=== PATIENT | male | born 1940 | race Caucasian/White ===

== ENCOUNTER 2019-11-13 11:53 | Outpatient (REF) | payer OTHER, SELFPAY ==
[2019-11-13 14:28] LABS: Anion Gap 14 (12-20); Blood Urea Nitrogen 17 mg/dL (9-16); Calcium 9.5 mg/dL (8.4-10.2); Carbon Dioxide 26 mmol/L (22-29); Chloride 104 mmol/L (96-108); Estimated Glomerular Filt Rate > 60; Glucose Random 89 mg/dL (60-115); Potassium 3.9 mmol/l (3.3-5.1); Sodium 140 mmol/L (135-145)
[2019-11-14 18:31] LABS: Calcium (PTHI) 9.7 mg/dL (8.6-10.3); PTHI 79 pg/mL (14-64)
== END 2019-11-13 11:54 | disposition home or self-care (01) ==
LOC: HO.10HDL 11:53
PROVIDERS: Visit Provider Internal Medicine
DX: E83.52 Hypercalcemia (principal)
CPT/HCPCS: 36415; 80048; 83970

== ENCOUNTER → 2019-11-22 09:07 | Outpatient (BNVA) | payer OTHER, SELFPAY | PROVIDERS: Visit Provider Internal Medicine | DX: I48.20 Chronic atrial fibrillation, unspecified (principal); Z51.81 Encounter for therapeutic drug level monitoring; Z79.01 Long term (current) use of anticoagulants | CPT/HCPCS: 85610 ==

== ENCOUNTER → 2019-12-27 08:52 | Outpatient (BNVA) | payer OTHER, SELFPAY | PROVIDERS: PCP Internal Medicine; Visit Provider Internal Medicine | DX: I48.20 Chronic atrial fibrillation, unspecified (principal); Z51.81 Encounter for therapeutic drug level monitoring; Z79.01 Long term (current) use of anticoagulants | CPT/HCPCS: 85610; 99211 ==

== ENCOUNTER → 2020-01-16 10:22 | Outpatient (BNVA) | payer OTHER, SELFPAY | PROVIDERS: PCP Internal Medicine; Referring Provider Internal Medicine; Visit Provider Internal Medicine Cardiovascular Disease | DX: I48.20 Chronic atrial fibrillation, unspecified (principal); I10 Essential (primary) hypertension; Z95.0 Presence of cardiac pacemaker | CPT/HCPCS: 93005 ==

== ENCOUNTER → 2020-01-19 10:04 | Outpatient (REF) | payer OTHER, SELFPAY ==
--- NOTE | 2020-01-19 10:08 | CA_ITS ---
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 The visually estimated ejection fraction is between 55-60%. - The left atrium is severely dilated. - No obvious valvular pathology seen on this study. Findings Left Ventricle Normal left ventricular cavity size. There is severely increased left ventricular wall thickness. The left ventricular systolic function is normal. The visually estimated ejection fraction is between 55-60%. There is no evidence of regional wall motion abnormalities. Diastolic function is indeterminate on the basis of available data. Right Ventricle Normal right ventricular cavity size and systolic function. There is a pacemaker wire seen in the right ventricle. Atria The left atrium is severely dilated. The right atrium is normal in size. Aortic Valve There is a normal trileaflet aortic valve. There is no aortic valve stenosis. There is no aortic valve regurgitation. Mitral Valve The mitral valve appears normal. There is mild mitral valve regurgitation. There is no mitral valve stenosis. Pulmonic Valve The pulmonic valve was not well visualized. Tricuspid Valve Normal tricuspid valve structure. There is trace tricuspid valve regurgitation. The pulmonary artery systolic pressure is normal. Great Vessels The aortic annulus, sinuses of valsalva, and asc aorta are normal in size. Venous The inferior vena cava is normal in size and collapses greater than 50% with inspiration. Pericardium/Pleural There is no evidence of pericardial effusion. Prior Study Comparison No significant change compared to prior study dated: 09/23/2017. Recommendations, Care & Conclusions No obvious valvular pathology seen on this study. Measurements 2D Linear Measurements IVSd: 1.56 0.6-0.9/0.6-1.0 cm LVIDd: 5.33 3.9-5.3/4.2-5.9 cm LVIDd Index: 2.43 2.4-3.2/2.2-3.1 cm/m2 LVIDs: 4.49 2.0-3.6 cm LVPWd: 1.50 0.7-1.1 cm Ao Root: 3.70 2.1-3.5 cm LA Diam: 4.90 2.7-3.8/3.0-4.0 cm LAIDs Index: 2.24 1.5-2.3 cm/m2 LV Mass: 456.74 67-162/88-224 g LV Mass Index: 208.56 43-95/49-115 g/m2 LVOT Diam: 2.20 3.0+(-)1.3 cm 2D Systolic Function EF 4C: 43.80 >55% EF 2C: 38.90 >55% Mitral Valve MV Pk E: 1.04 MV PK A: 0.00 MV Decel Time: 151.00 E/A: 214.40 E'Lateral: 15.90 E'Medial: 3.96 E/E' Med: 26.30 E/E' Lat: 6.50 PHT: 44.00 MVA PHT: 5.00 Decel Cooper: 6.89 Aortic Valve AoV Pk Ruben: 1.23 AoV Mn Ruben: 0.96 AoV VTI: 0.29 AoV Pk Grad: 6.00 Aov Mn Grad: 4.00 ALEYDA Cont.VTI: 2.59 LVOT LVOT Pk Ruben: 0.96 LVOT Mn Ruben: 0.63 LVOT VTI: 0.20 LVOT Pk Grad: 4.00 LVOT Mn Grad: 2.00 LVOT Diam: 2.20 LVOT Area: 3.80 Diastolic Function MV Pk E: 1.04 MV Pk A: 0.00 E/A: 214.40 E'Medial: 3.96 E/E' Med: 26.30 E' Laterial: 15.90 E/E' Lat: 6.50 Tricuspid Valve TR Pk Ruben: 2.49 TR Pk Grad: 25.00 RA Press: 3.00 RVSP: 28.00 Great Vessels Aorta Ao Root-2D: 3.70 2.0-3.7 cm Ao Asc: 3.60 2.1-3.4 cm Pulmonary Valve PV Pk Ruben: 0.69 Peak PV Grad: 2.00 Updated in Other Vendor System with Status of Final Tr Lindquist MD electronically signed on 01/21/2020 9:47:39 AM with status of Final
== END ==
LOC: HO.CARD 10:04
PROVIDERS: Visit Provider Internal Medicine Cardiovascular Disease
DX: I11.0 Hypertensive heart disease with heart failure (principal); I48.20 Chronic atrial fibrillation, unspecified
CPT/HCPCS: 93306

== ENCOUNTER 2020-01-22 11:08 | Outpatient (REF) | payer OTHER, SELFPAY ==
[2020-01-22 14:05] LABS: Alanine Aminotransferase 22 U/L (0-40); Albumin Level 4.4 g/dL (3.5-5.0); Alkaline Phosphatase 67 U/L (39-117); Anion Gap 16 (12-20); Aspartate Amino Transferase 22 U/L (5-37); Bilirubin Total 1.2 mg/dL (0.0-1.0); Blood Urea Nitrogen 20 mg/dL (9-16); Calcium 9.5 mg/dL (8.4-10.2); Carbon Dioxide 28 mmol/L (22-29); Chloride 103 mmol/L (96-108); Estimated Glomerular Filt Rate > 60; Glucose Random 140 mg/dL (60-115); Potassium 3.8 mmol/l (3.3-5.1); Sodium 143 mmol/L (135-145); Total Protein 7.4 g/dL (6.5-8.0)
[2020-01-22 14:16] LABS: Prostate Specific Antigen 0.91 ng/mL (<0.05-4.0)
== END 2020-01-22 11:09 | disposition home or self-care (01) ==
LOC: HO.10HDL 11:08
PROVIDERS: Absent Provider Urology; PCP Internal Medicine; Visit Provider Internal Medicine
DX: I48.0 Paroxysmal atrial fibrillation (principal); I10 Essential (primary) hypertension; G47.33 Obstructive sleep apnea (adult) (pediatric); C61 Malignant neoplasm of prostate; R73.03 Prediabetes
CPT/HCPCS: 80053; 84153

== ENCOUNTER → 2020-01-31 09:05 | Outpatient (BNVA) | payer OTHER, SELFPAY | PROVIDERS: PCP Internal Medicine; Visit Provider Internal Medicine | DX: I48.20 Chronic atrial fibrillation, unspecified (principal); Z79.01 Long term (current) use of anticoagulants; Z51.81 Encounter for therapeutic drug level monitoring | CPT/HCPCS: 85610; 99211 ==

== ENCOUNTER 2020-02-13 14:35 | Outpatient (REF) | payer OTHER, SELFPAY ==
--- NOTE | 2020-02-13 14:45 | XR_ITS ---
EXAMINATION: XR HIP, LEFT CLINICAL INFORMATION: Left hip pain. COMPARISON: CT pelvis from 03/08/2015. TECHNIQUE: Two views of the left hip. FINDINGS: Alignment is normal at the left hip. Left hip joint space is maintained. No fracture or subluxation. No erosion or periostitis. There are areas of sclerosis projecting over the left femoral head that appear to be within the femoral head and not within the overlying acetabulum. This raises suspicion for possible osteonecrosis of the femoral head. Query whether the patient has any risk factors for osteonecrosis. There was no femoral head osteonecrosis on the CT exam of 03/08/2015. If the patient has unexplained pain at the left hip, MR imaging could be performed. XR/XR hip LT min 2V IMPRESSION: * No acute findings. * No evidence of a significant degenerative or inflammatory arthropathy at the left hip. * There appears to be an area of sclerosis within the femoral head. Question presence of osteonecrosis within the left femoral head. If there is a need for a more definitive assessment, MR imaging of the hip could be performed.
== END 2020-02-13 14:36 | disposition home or self-care (01) ==
LOC: HO.XRAY 14:35
PROVIDERS: PCP Internal Medicine; Visit Provider Internal Medicine
DX: M25.552 Pain in left hip (principal); I48.20 Chronic atrial fibrillation, unspecified; Z51.81 Encounter for therapeutic drug level monitoring; Z79.01 Long term (current) use of anticoagulants
CPT/HCPCS: 73502; 85610; 99211

== ENCOUNTER → 2020-02-26 11:58 | Outpatient (BNVA) | payer OTHER, SELFPAY | PROVIDERS: PCP Internal Medicine; Visit Provider Orthopaedic Surgery ==

== ENCOUNTER → 2020-02-28 14:09 | Outpatient (BNVA) | payer OTHER, SELFPAY | PROVIDERS: PCP Internal Medicine; Visit Provider Anesthesiology ==

== ENCOUNTER → 2020-03-28 09:43 | Outpatient (BNVA) | payer OTHER, SELFPAY | PROVIDERS: PCP Internal Medicine; Visit Provider Internal Medicine | DX: I48.20 Chronic atrial fibrillation, unspecified (principal); Z51.81 Encounter for therapeutic drug level monitoring; Z79.01 Long term (current) use of anticoagulants | CPT/HCPCS: 85610; 99211 ==

== ENCOUNTER 2020-04-15 09:16 | Outpatient (REF) | payer OTHER, SELFPAY ==
[2020-04-15 11:12] LABS: Alanine Aminotransferase 26 U/L (0-40); Albumin Level 4.7 g/dL (3.5-5.0); Alkaline Phosphatase 69 U/L (39-117); Anion Gap 17 (12-20); Aspartate Amino Transferase 27 U/L (5-37); Bilirubin Total 1.5 mg/dL (0.0-1.0); Blood Urea Nitrogen 16 mg/dL (9-16); Calcium 9.6 mg/dL (8.4-10.2); Carbon Dioxide 27 mmol/L (22-29); Chloride 103 mmol/L (96-108); Estimated Glomerular Filt Rate > 60; Glucose Fasting 122 mg/dL (60-99); Potassium 3.7 mmol/L (3.3-5.1); Sodium 143 mmol/L (135-145); Total Protein 7.7 g/dL (6.5-8.0)
== END 2020-04-15 09:17 | disposition home or self-care (01) ==
LOC: HO.10HDL 09:16
PROVIDERS: Visit Provider Internal Medicine
DX: I50.9 Heart failure, unspecified (principal); I48.0 Paroxysmal atrial fibrillation
CPT/HCPCS: 36415; 80053

== ENCOUNTER 2020-04-15 14:00 | Outpatient (RCR) | payer OTHER, SELFPAY ==
--- NOTE | 2020-03-19 14:26 | MHC.PT.OD ---
[facility] [place] Office [place] Office [place] Office [address] Britni Acevedo [address] [phone] F: [phone] F: [phone] F: [phone] F: [phone] Physical Therapy Daily Note Diagnosis: Iliotibial band syndrome, unspecified leg M76.30 PT eval and treat referred to PT from Jonatan Raman date of referral 03/13/20 FINDINGS: Alignment is normal at the left hip. Left hip joint space is maintained. No fracture or subluxation. No erosion or periostitis. There are areas of sclerosis projecting over the left femoral head that appear to be within the femoral head and not within the overlying acetabulum. This raises suspicion for possible osteonecrosis of the femoral head. Query whether the patient has any risk factors for osteonecrosis. There was no femoral head osteonecrosis on the CT exam of 03/08/2015. If the patient has unexplained pain at the left hip, MR imaging could be performed. XR/XR hip LT min 2V IMPRESSION: * No acute findings. * No evidence of a significant degenerative or inflammatory arthropathy at the left hip. * There appears to be an area of sclerosis within the femoral head. Question presence of osteonecrosis within the left femoral head. If there is a need for a more definitive assessment, MR imaging of the hip could be performed. XR/XR hip LT min 2V IMPRESSION: * No acute findings. * No evidence of a significant degenerative or inflammatory arthropathy at the left hip. * There appears to be an area of sclerosis within the femoral head. Question presence of osteonecrosis within the left femoral head. If there is a need for a more definitive assessment, MR imaging of the hip could be performed.* Date of Surgery: Date of Evaluation: 03/18/20 Date of Treatment: 03/18/20 Treatments to Date: 1 Cancellations to Date: 0 No Shows to Date: Authorized Visits: 1 Insurance End Date: Precautions/ Contraindications:on coumadin, pacemaker, cardiac, HTN, Subjective: Your the fifth person Eleanor seen for this, I hope you can help me. Pain Score and Location: 5 Proximal hip Objective Flowsheet: Tests & Measures Exercises Gait training trialed with std cane in R UE; initiated step to pattern sequencing in effort to reduce pressure/pain in L LE. Pt verbalized does not currently have a std cane, educated/encouraged to purchase one and bring to next session to have properly adjusted to him. With use of std cane, pt demonstrated improved gait efficiency and reduction in gait deviations. To review stair sequencing/education next session. Educated re: findings of evaluation, indications for treatment, goals of therapy Educated re: benefit in using std cane to improve gait sequencing/reduce gait deviations/stress on other areas of his body Encouraged participation in therapy Modalities Assessment: Pt is a R hand dominant, 79 y/o pleasant retired gentleman, referred to PT from pain management ( 03/13/20) following initial consult after seeing pain management. Prior to referral here, pt was seen by orthopedics and underwent xray imaging of his L hip. FINDINGS: Alignment is normal at the left hip. Left hip joint space is maintained. No fracture or subluxation. No erosion or periostitis. There are areas of sclerosis projecting over the left femoral head that appear to be within the femoral head and not within the overlying acetabulum. This raises suspicion for possible osteonecrosis of the femoral head. Query whether the patient has any risk factors for osteonecrosis. There was no femoral head osteonecrosis on the CT exam of 03/08/2015. If the patient has unexplained pain at the left hip, MR imaging could be performed. XR/XR hip LT min 2V IMPRESSION: * No acute findings. * No evidence of a significant degenerative or inflammatory arthropathy at the left hip. * There appears to be an area of sclerosis within the femoral head. Question presence of osteonecrosis within the left femoral head. If there is a need for a more definitive assessment, MR imaging of the hip could be performed. XR/XR hip LT min 2V Pt presents with significant gait deformity, impaired weight-bearing, and visible weakness of his left hip. Pt would likely benefit from education with aide in using an assistive device (trial of std cane first) to improve weight-bearing ability however given xray findings it appears that patient would benefit from MRI of L hip to rule out presence of osteonecrosis. His pain location, impaired weightbearing tolerance, and appearance of symptoms are consistent with such a pathology. Pt stated hip xray was fine ; was referred to pain management by orthopedic MD prior to referral to outpatient PT. Pt was educated re: goals of therapy, findings of evaluation, and indications for treatment at this time. Pt verbalized significant frustration for ongoing symptoms with unknown cause. His PMH is significant for cardiac precautions with pacemaker placement, on coumadin, HTN, obesity, and sleep apnea. He verbalizes intolerance for ambulating short distances in his home Im hobbling around and he is having difficulty ascending/descending stairs with increased reliance on UE support. Pt would benefit from attending therapy 2x/week x 4 weeks to address gait deviations, implement use of AD, strengthen core/proximal hip, and improve safety to maximize function/reduce risk of falls. PT Plan: 2x/week x 4 weeks Short Term Goals: 1. Initiate use of AD to ease pain and improve weight-bearing on the L LE. 2. Educate pt re: goals of therapy, initiate HEP. 3. Strengthen L hip ext to complete symmetrical bridge in hooklying. 4. Strengthen L hip abd to 3/5 without compensation of L hip flexors. 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 Reduce pain in L proximal hip by 25%. 2. Complete SLR with no report of pain in L proximal hip. 3. Ascend/decend 8 inch step correctly and safely with use of sd cane and unilateral rail. 4. I HEP. Electronically signed by: Flavia Dewitt, PT, DPT
--- NOTE | 2020-04-15 14:49 | MHC.PT.OD ---
[facility] [place] Office [place] Office [place] Office [address] Britni Acevedo [address] [phone] F: [phone] F: [phone] F: [phone] F: [phone] Physical Therapy Daily Note Diagnosis: Iliotibial band syndrome, unspecified leg M76.30 PT eval and treat referred to PT from Jonatan Raman date of referral 03/13/20 FINDINGS: Alignment is normal at the left hip. Left hip joint space is maintained. No fracture or subluxation. No erosion or periostitis. There are areas of sclerosis projecting over the left femoral head that appear to be within the femoral head and not within the overlying acetabulum. This raises suspicion for possible osteonecrosis of the femoral head. Query whether the patient has any risk factors for osteonecrosis. There was no femoral head osteonecrosis on the CT exam of 03/08/2015. If the patient has unexplained pain at the left hip, MR imaging could be performed. XR/XR hip LT min 2V IMPRESSION: * No acute findings. * No evidence of a significant degenerative or inflammatory arthropathy at the left hip. * There appears to be an area of sclerosis within the femoral head. Question presence of osteonecrosis within the left femoral head. If there is a need for a more definitive assessment, MR imaging of the hip could be performed. XR/XR hip LT min 2V IMPRESSION: * No acute findings. * No evidence of a significant degenerative or inflammatory arthropathy at the left hip. * There appears to be an area of sclerosis within the femoral head. Question presence of osteonecrosis within the left femoral head. If there is a need for a more definitive assessment, MR imaging of the hip could be performed.* Date of Surgery: Date of Evaluation: 03/18/20 Date of Treatment: 04/02/20 Treatments to Date: 6 Cancellations to Date: 0 No Shows to Date: Authorized Visits: 1 Insurance End Date: Precautions/ Contraindications:On coumadin, pacemaker, cardiac, HTN, Fall risk Sleep apnea Subjective: I dont think the therapy is helping. Im taking 6- 500mg tylenol 3x/daily and that medication that he gave me doesn't do anything. Pain Score and Location: 4 with meds, 2 no meds L proximal hip Objective Flowsheet: Tests & Measures AROM Measurement 04/02/20: R IR 28 degrees R ER 13 degrees L hip IR 15 degrees L hip ER 23 degrees L hip flexion 3-/5 pain proximal L hip L knee ext 3-/5 pain proximal L hip R hip flexion 5/5 no pain R knee ext 5/5 no pain Exercises Seated sit<>stand and stand<>sit with GTB around thigh x 2 sets 10R with HEP education for home to improve mobility. SLR into flexion x 2 sets 10R SL hip abduction with straight leg with pillow between the knees x 2 sets 10R Seated HS curls with GTB x 2 set 10R bilaterally. Hooklying posterior pelvic tilt x 2 sets 10R with HS curl isolation. HS bridge in hooklying x 2 set 10R. Standing hip abduction with GTB with UE support and close S of therapist for safety x 10R each. SAQ seated x 2 sets 10R. Using green flexbar roller, STM to proximal left thigh/hip region while in R SL position. Adjusted height of standard cane for patient. Completed gait training on flat surface with use of std cane in R UE, step to>step through gait with good understanding and carryover demonstrated. Pt educated re: ascending/descending stairs with use of cane and unilateral rail. Completed education using 8 inch step and use of L UE rail (as this is what patient has at home for program). Ascending with R LE first, descending with L LE first with proper sequencing. Educated re: findings of evaluation, indications for treatment, goals of therapy Educated re: benefit in using std cane to improve gait sequencing/reduce gait deviations/stress on other areas of his body Encouraged participation in therapy Modalities Assessment: EXAMINATION: XR HIP, LEFT CLINICAL INFORMATION: Left hip pain. COMPARISON: CT pelvis from 03/08/2015. TECHNIQUE: Two views of the left hip. FINDINGS: Alignment is normal at the left hip. Left hip joint space is maintained. No fracture or subluxation. No erosion or periostitis. There are areas of sclerosis projecting over the left femoral head that appear to be within the femoral head and not within the overlying acetabulum. This raises suspicion for possible osteonecrosis of the femoral head. Query whether the patient has any risk factors for osteonecrosis. There was no femoral head osteonecrosis on the CT exam of 03/08/2015. If the patient has unexplained pain at the left hip, MR imaging could be performed. XR/XR hip LT min 2V IMPRESSION: * No acute findings. * No evidence of a significant degenerative or inflammatory arthropathy at the left hip. * There appears to be an area of sclerosis within the femoral head. Question presence of osteonecrosis within the left femoral head. If there is a need for a more definitive assessment, MR imaging of the hip could be performed. Dictated By:WILDA MCNALLY MD Signed By:<Electronically signed by WILDA MCNALLY MD in OV>02/15/20 0836 Pt has attended 6 sessions of PT to date, demonstrating limited improvement, plateaued progress in regards to reducing L proximal hip pain. Pt has beeen issued a written hip stablization program with (+) compliance. Pt may benefit from further imaging pain due to insidious onset of pain in hip, limited weight-bearing tolerance, and questionable findings on xray. PT Plan: Follow up with PCP Dr. Reddy, michelle appt with pain management is scheduled at this time. Pt has attended six sessions of PT to date, demonstrating little change in L proximal hip symptoms with report of insidious onset of pain. Pt has reported taking baclofen 10mg 3x daily in conjunction with 2-500mg tablets of Tylenol 3x daily. Pt has been educated re: previously issued stabilization activities with (+) carryover completed. He has not been using std cane but has been shown how to use and did obtain for home. His gait is antalgic with increased hip ER, decreased hip flexion and impaired stance tolerance. Please advise. Therapist is not recommending further therapy at this time secondary to plateaued status. Short Term Goals: 1. Initiate use of AD to ease pain and improve weight-bearing on the L LE. 2. Educate pt re: goals of therapy, initiate HEP. 3. Strengthen L hip ext to complete symmetrical bridge in hooklying. 4. Strengthen L hip abd to 3/5 without compensation of L hip flexors. Quality Assurance Specialist Goals: 1. Reduce pain in L proximal hip by 25%. 2. Complete SLR with no report of pain in L proximal hip. 3. Ascend/decend 8 inch step correctly and safely with use of sd cane and unilateral rail. 4. I HEP. Electronically signed by: Flavia Dewitt, PT, DPT
== END 2020-05-20 08:20 | disposition other institution (70) ==
LOC: HO.PTWFD 14:00
PROVIDERS: PCP Internal Medicine; Visit Provider Anesthesiology
DX: M54.16 Radiculopathy, lumbar region (principal)
CPT/HCPCS: 97110; 97116; 97140; 97162; 97535

== ENCOUNTER → 2020-04-24 09:55 | Outpatient (BNVA) | payer OTHER, SELFPAY | PROVIDERS: PCP Internal Medicine; Visit Provider Internal Medicine | DX: I48.20 Chronic atrial fibrillation, unspecified (principal); Z51.81 Encounter for therapeutic drug level monitoring; Z79.01 Long term (current) use of anticoagulants | CPT/HCPCS: 85610; 99211 ==

== ENCOUNTER → 2020-05-29 10:03 | Outpatient (BNVA) | payer OTHER, SELFPAY | PROVIDERS: PCP Internal Medicine; Visit Provider Internal Medicine | DX: I48.20 Chronic atrial fibrillation, unspecified (principal); Z79.01 Long term (current) use of anticoagulants; Z51.81 Encounter for therapeutic drug level monitoring | CPT/HCPCS: 85610; 99211 ==

== ENCOUNTER → 2020-06-26 10:06 | Outpatient (BNVA) | payer OTHER, SELFPAY | PROVIDERS: PCP Internal Medicine; Visit Provider Internal Medicine | DX: I48.20 Chronic atrial fibrillation, unspecified (principal); Z51.81 Encounter for therapeutic drug level monitoring; Z79.01 Long term (current) use of anticoagulants | CPT/HCPCS: 85610; 99211 ==

== ENCOUNTER 2020-07-15 09:52 | Outpatient (REF) | payer OTHER, SELFPAY ==
[2020-07-15 10:27] LABS: MANUAL DIFF FLAG NO
[2020-07-15 10:37] LABS: Basophils Percent Auto 0.6 % (0-2); Eosinophils Absolute Auto 0.2 X10*3/uL (0.0-0.4); Eosinophils Percent Auto 3.1 % (0-4); Hematocrit 48.7 % (42-52); Imm Gran Abs Auto 0.02 X10*3/uL (0.00-0.03); Imm Gran Pct Auto 0.3 % (0.0-0.4); Lymphocytes Absolute Auto 1.2 X10*3/uL (1.2-4.9); Mean Corpuscular HGB Conc 34.9 g/dl (31.0-36.0); Mean Corpuscular Hemoglobin 33.6 pg (27.0-33.0); Mean Corpuscular Volume 96.2 fL (80-98); Mean Platelet Volume 10.5 fL (9.4-12.4); Monocytes Absolute Auto 0.6 X10*3/uL (0.1-1.2); Neutrophils Absolute Auto 4.4 X10*3/uL (2.0-8.3); Platelet Count 160 X10*3/uL (160-400); Red Blood Count 5.06 X10*6/uL (4.60-5.80); Red Cell Distribution Width 13.7 % (11.0-16.0); White Blood Count 6.5 X10*3/uL (4.8-10.8)
[2020-07-15 10:48] LABS: Estimated Average Glucose 128 mg/dL; Hemoglobin A1c % 6.1 %
[2020-07-15 11:07] LABS: Alanine Aminotransferase 25 U/L (0-40); Albumin Level 4.4 g/dL (3.5-5.0); Alkaline Phosphatase 76 U/L (39-117); Anion Gap 13 (12-20); Aspartate Amino Transferase 22 U/L (5-37); Bilirubin Total 1.4 mg/dL (0.0-1.0); Blood Urea Nitrogen 18 mg/dL (9-16); Calcium 9.7 mg/dL (8.4-10.2); Carbon Dioxide 25 mmol/L (22-29); Chloride 106 mmol/L (96-108); Estimated Glomerular Filt Rate > 60; Glucose Random 141 mg/dL (60-115); Phosphorus 2.7 mg/dL (2.7-4.5); Potassium 3.7 mmol/L (3.3-5.1); Sodium 140 mmol/L (135-145)
[2020-07-17 10:26] LABS: Calcium (PTHI) 9.8 mg/dL (8.6-10.3); PTHI 97 pg/mL (14-64)
== END 2020-07-15 09:53 | disposition home or self-care (01) ==
LOC: HO.10HDL 09:52
PROVIDERS: Visit Provider Internal Medicine
DX: I12.9 Hypertensive chronic kidney disease with stage 1 through stage 4 chronic kidney disease, or unspecified chronic kidney disease (principal); N18.9 Chronic kidney disease, unspecified; I48.91 Unspecified atrial fibrillation; R73.03 Prediabetes
CPT/HCPCS: 36415; 80053; 83036; 83970; 84100; 85025

== ENCOUNTER → 2020-07-22 10:31 | Outpatient (BNVA) | payer OTHER, SELFPAY | PROVIDERS: PCP Internal Medicine; Referring Provider Internal Medicine; Visit Provider Internal Medicine Cardiovascular Disease ==

== ENCOUNTER 2020-07-23 10:37 | Outpatient (REF) | payer OTHER, SELFPAY ==
[2020-07-23 14:41] LABS: Prostate Specific Antigen 1.07 ng/mL (<0.05-4.0)
== END 2020-07-23 10:38 | disposition home or self-care (01) ==
LOC: HO.10HDL 10:37
PROVIDERS: Visit Provider Urology
DX: Z12.5 Encounter for screening for malignant neoplasm of prostate (principal); C61 Malignant neoplasm of prostate
CPT/HCPCS: 36415; 84153

== ENCOUNTER → 2020-07-31 09:51 | Outpatient (BNVA) | payer OTHER, SELFPAY | PROVIDERS: PCP Internal Medicine; Visit Provider Internal Medicine | DX: I48.20 Chronic atrial fibrillation, unspecified (principal); Z51.81 Encounter for therapeutic drug level monitoring; Z79.01 Long term (current) use of anticoagulants | CPT/HCPCS: 85610; 99211 ==

== ENCOUNTER → 2020-09-04 09:40 | Outpatient (BNVA) | payer OTHER, SELFPAY | PROVIDERS: PCP Internal Medicine; Visit Provider Internal Medicine | DX: I48.20 Chronic atrial fibrillation, unspecified (principal); Z51.81 Encounter for therapeutic drug level monitoring; Z79.01 Long term (current) use of anticoagulants | CPT/HCPCS: 85610; 99211 ==

== ENCOUNTER → 2020-10-16 09:58 | Outpatient (BNVA) | payer OTHER, SELFPAY | PROVIDERS: PCP Internal Medicine; Visit Provider Internal Medicine | DX: I48.20 Chronic atrial fibrillation, unspecified (principal); Z51.81 Encounter for therapeutic drug level monitoring; Z79.01 Long term (current) use of anticoagulants | CPT/HCPCS: 85610; 99211 ==

== ENCOUNTER 2020-10-22 09:26 | Outpatient (REF) | payer OTHER, SELFPAY ==
[2020-10-22 10:35] LABS: MANUAL DIFF FLAG NO
[2020-10-22 10:40] LABS: Basophils Percent Auto 0.7 % (0-2); Eosinophils Absolute Auto 0.2 X10*3/uL (0.0-0.4); Eosinophils Percent Auto 3.6 % (0-4); Hematocrit 48.4 % (42-52); Hemoglobin 16.9 g/dl (14.0-18.0); Imm Gran Abs Auto 0.02 X10*3/uL (0.00-0.03); Imm Gran Pct Auto 0.3 % (0.0-0.4); Lymphocytes Absolute Auto 1.3 X10*3/uL (1.2-4.9); Lymphocytes Percent Auto 22.4 % (20-40); Mean Corpuscular HGB Conc 34.9 g/dl (31.0-36.0); Mean Corpuscular Hemoglobin 33.4 pg (27.0-33.0); Mean Corpuscular Volume 95.7 fL (80-98); Mean Platelet Volume 10.4 fL (9.4-12.4); Monocytes Absolute Auto 0.6 X10*3/uL (0.1-1.2); Monocytes Percent Auto 10.2 % (2-11); Neutrophils Absolute Auto 3.7 X10*3/uL (2.0-8.3); Neutrophils Percent Auto 62.8 % (45-73); Platelet Count 156 X10*3/uL (160-400); Red Blood Count 5.06 X10*6/uL (4.60-5.80); Red Cell Distribution Width 14.1 % (11.0-16.0); White Blood Count 5.8 X10*3/uL (4.8-10.8)
[2020-10-22 10:48] LABS: Estimated Average Glucose 128 mg/dL; Hemoglobin A1c % 6.1 %
[2020-10-22 11:12] LABS: Alanine Aminotransferase 25 U/L (0-40); Albumin Level 4.5 g/dL (3.5-5.0); Alkaline Phosphatase 79 U/L (39-117); Anion Gap 14 (12-20); Aspartate Amino Transferase 25 U/L (5-37); Bilirubin Total 1.7 mg/dL (0.0-1.0); Blood Urea Nitrogen 15 mg/dL (9-16); Calcium 9.7 mg/dL (8.4-10.2); Carbon Dioxide 26 mmol/L (22-29); Chloride 105 mmol/L (96-108); Estimated Glomerular Filt Rate > 60; Glucose Random 140 mg/dL (60-115); Potassium 4.1 mmol/L (3.3-5.1); Sodium 141 mmol/L (135-145); Total Protein 7.4 g/dL (6.5-8.0)
== END 2020-10-22 09:27 | disposition home or self-care (01) ==
LOC: HO.10HDL 09:26
PROVIDERS: Visit Provider Internal Medicine
DX: Z13.89 Encounter for screening for other disorder (principal)
CPT/HCPCS: 36415; 80053; 83036; 83735; 85025

== ENCOUNTER → 2020-11-20 09:47 | Outpatient (BNVA) | payer OTHER, SELFPAY | PROVIDERS: PCP Internal Medicine; Visit Provider Internal Medicine | DX: I48.20 Chronic atrial fibrillation, unspecified (principal); Z51.81 Encounter for therapeutic drug level monitoring; Z79.01 Long term (current) use of anticoagulants | CPT/HCPCS: 85610; 99211 ==

== ENCOUNTER → 2020-12-25 10:00 | Outpatient (BNVA) | payer OTHER, SELFPAY | PROVIDERS: PCP Internal Medicine; Visit Provider Internal Medicine | DX: I48.20 Chronic atrial fibrillation, unspecified (principal); Z51.81 Encounter for therapeutic drug level monitoring; Z79.01 Long term (current) use of anticoagulants | CPT/HCPCS: 85610; 99211 ==

== ENCOUNTER → 2021-01-13 09:04 | Outpatient (BNVA) | payer OTHER, SELFPAY | PROVIDERS: PCP Internal Medicine; Referring Provider Internal Medicine; Visit Provider Internal Medicine Cardiovascular Disease | DX: Z45.018 Encounter for adjustment and management of other part of cardiac pacemaker (principal); I48.20 Chronic atrial fibrillation, unspecified; I11.0 Hypertensive heart disease with heart failure; I50.9 Heart failure, unspecified | CPT/HCPCS: 93005 ==

== ENCOUNTER 2021-01-16 09:50 | Outpatient (REF) | payer OTHER, SELFPAY ==
[2021-01-16 13:47] LABS: MANUAL DIFF FLAG NO
[2021-01-16 13:51] LABS: Basophils Absolute Auto 0.1 X10*3/uL (0.0-0.2); Basophils Percent Auto 0.9 % (0-2); Eosinophils Absolute Auto 0.1 X10*3/uL (0.0-0.4); Eosinophils Percent Auto 2.5 % (0-4); Hematocrit 51.1 % (42.0-52.0); Hemoglobin 17.7 g/dl (14.0-18.0); Imm Gran Abs Auto 0.02 X10*3/uL (0.00-0.03); Imm Gran Pct Auto 0.4 % (0.0-0.4); Lymphocytes Absolute Auto 1.3 X10*3/uL (1.2-4.9); Lymphocytes Percent Auto 22.1 % (20-40); Mean Corpuscular HGB Conc 34.6 g/dl (31.0-36.0); Mean Corpuscular Volume 95.3 fL (80.0-98.0); Mean Platelet Volume 10.6 fL (9.4-12.4); Monocytes Absolute Auto 0.5 X10*3/uL (0.1-1.2); Monocytes Percent Auto 9.3 % (2-11); Neutrophils Absolute Auto 3.7 x10*3/uL (2.0-8.3); Neutrophils Percent Auto 64.8 % (45-73); Platelet Count 170 X10*3/uL (160-400); Red Blood Count 5.36 X10*6/uL (4.60-5.80); White Blood Count 5.7 X10*3/uL (4.8-10.8)
[2021-01-16 14:26] LABS: Estimated Average Glucose 128 mg/dL; Hemoglobin A1c % 6.1 %
[2021-01-16 14:28] LABS: Alanine Aminotransferase 26 U/L (0-40); Albumin Level 4.6 g/dL (3.5-5.0); Alkaline Phosphatase 79 U/L (39-117); Anion Gap 14 (12-20); Aspartate Amino Transferase 23 U/L (5-37); Bilirubin Total 1.7 mg/dL (0.0-1.0); Blood Urea Nitrogen 15 mg/dL (9-16); Chloride 104 mmol/L (96-108); Cholesterol 148 mg/dL; Estimated Glomerular Filt Rate > 60; Glucose Fasting 120 mg/dL (60-99); HDL Cholesterol 28 mg/dL; LDL Cholesterol Calculated 49 mg/dl; Potassium 3.6 mmol/L (3.3-5.1); Sodium 140 mmol/L (135-145); Total Protein 7.6 g/dL (6.5-8.0); Triglycerides 356 mg/dL
[2021-01-16 14:34] LABS: Carbon Dioxide 26 mmol/L (22-29)
[2021-01-16 14:44] LABS: Creatinine Urine 119.52 mg/dL; Microalbum/Creatinine Ratio Ur 167.3 ug/mg cr
[2021-01-16 14:48] LABS: Prostate Specific Antigen Scr 1.01 ng/mL (<0.05-4.0)
== END 2021-01-16 09:51 | disposition home or self-care (01) ==
LOC: HO.10HDL 09:50
PROVIDERS: Visit Provider Internal Medicine
DX: I12.9 Hypertensive chronic kidney disease with stage 1 through stage 4 chronic kidney disease, or unspecified chronic kidney disease (principal); R73.03 Prediabetes; D64.9 Anemia, unspecified; E78.00 Pure hypercholesterolemia, unspecified
CPT/HCPCS: 36415; 80053; 80061; 82043; 83036; 84153; 85025

== ENCOUNTER → 2021-01-23 12:39 | Outpatient (REF) | payer OTHER, SELFPAY ==
--- NOTE | 2021-01-23 12:44 | CA_ITS ---
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 Normal LV systolic function with moderate LVH 2. Severe left atrial enlargement 3. Normal cardiac valvular Doppler 4. Normal RV systolic pressure 5. No pericardial effusion Findings Left Ventricle Normal left ventricular size and systolic function. There is moderately increased left ventricular wall thickness. The visually estimated ejection fraction is between 55-60%. Diastolic function is indeterminate on the basis of available data. Right Ventricle Normal right ventricular cavity size and systolic function. There is a pacemaker wire seen in the right ventricle. Atria The left atrium is severely dilated. There is lipomatous hypertrophy of the interatrial septum. Interatrial shunt cannot be excluded. The right atrium is moderately dilated. Aortic Valve There is mild thickening of the aortic valve. There is no aortic valve stenosis. There is no aortic valve regurgitation. Mitral Valve There is mild anterior and posterior mitral leaflet thickening. There is trace mitral valve regurgitation. There is no mitral valve stenosis. Pulmonic Valve The pulmonic valve was not well visualized. Tricuspid Valve Likely normal tricuspid valve structure and function. There is mild tricuspid valve regurgitation. The right ventricular systolic pressure is normal. The right ventricular systolic pressure is 23 mmHg. Normal right atrial pressure. There is no evidence of pulmonary hypertension. Great Vessels All visible segments of the aorta are normal in size. The pulmonary artery was not well visualized. Venous The inferior vena cava is normal in size and collapses greater than 50% with inspiration. Pericardium/Pleural There is no evidence of pericardial effusion. Prior Study Comparison Changes noted compared to prior study dated: 01/19/2020. LVH has regressed Measurements 2D Linear Measurements IVSd: 1.47 0.6-0.9/0.6-1.0 cm LVIDd: 5.06 3.9-5.3/4.2-5.9 cm LVIDd Index: 2.28 2.4-3.2/2.2-3.1 cm/m2 LVIDs: 3.41 2.0-3.6 cm LVPWd: 1.47 0.7-1.1 cm Ao Root: 3.80 2.1-3.5 cm LA Diam: 5.20 2.7-3.8/3.0-4.0 cm LAIDs Index: 2.34 1.5-2.3 cm/m2 LV Mass: 320.00 67-162/88-224 g LV Mass Index: 144.14 43-95/49-115 g/m2 LVOT Diam: 2.40 3.0+(-)1.3 cm 2D Systolic Function EF 4C: 56.40 >55% EF 2C: 61.30 >55% EF BiP: 58.10 >55% Aortic Valve AoV Pk Ruben: 1.12 AoV Mn Ruben: 0.81 AoV VTI: 0.23 AoV Pk Grad: 5.00 Aov Mn Grad: 3.00 ALEYDA Cont.VTI: 3.04 LVOT LVOT Pk Ruben: 0.91 LVOT Mn Ruben: 0.50 LVOT VTI: 0.15 LVOT Pk Grad: 3.00 LVOT Mn Grad: 1.00 LVOT Diam: 2.40 LVOT Area: 4.52 Right Ventricle TAPSE (mm): 1.63 TVS' Ruben: 10.90 Tricuspid Valve TR Pk Ruben: 2.25 TR Pk Grad: 20.00 RA Press: 3.00 RVSP: 23.00 Great Vessels Aorta Ao Root-2D: 3.80 2.0-3.7 cm Ao Asc: 3.60 2.1-3.4 cm Ao Arch: 2.90 Updated in Other Vendor System with Status of Final Nish Devine MD electronically signed on 01/24/2021 3:50:57 PM with status of Final
== END ==
LOC: HO.CARD 12:39
PROVIDERS: PCP Internal Medicine; Visit Provider Internal Medicine Cardiovascular Disease
DX: I11.0 Hypertensive heart disease with heart failure (principal)
CPT/HCPCS: 93306

== ENCOUNTER → 2021-01-29 09:36 | Outpatient (BNVA) | payer OTHER, SELFPAY | PROVIDERS: PCP Internal Medicine; Visit Provider Internal Medicine | DX: I48.20 Chronic atrial fibrillation, unspecified (principal); Z51.81 Encounter for therapeutic drug level monitoring; Z79.01 Long term (current) use of anticoagulants | CPT/HCPCS: 85610; 99211 ==

== ENCOUNTER → 2021-03-05 09:43 | Outpatient (BNVA) | payer OTHER, SELFPAY | PROVIDERS: PCP Internal Medicine; Visit Provider Internal Medicine | DX: I48.20 Chronic atrial fibrillation, unspecified (principal); Z51.81 Encounter for therapeutic drug level monitoring; Z79.01 Long term (current) use of anticoagulants | CPT/HCPCS: 85610; 99211 ==

== ENCOUNTER → 2021-04-09 10:00 | Outpatient (BNVA) | payer OTHER, SELFPAY | PROVIDERS: PCP Internal Medicine; Visit Provider Internal Medicine | DX: I48.20 Chronic atrial fibrillation, unspecified (principal); Z51.81 Encounter for therapeutic drug level monitoring; Z79.01 Long term (current) use of anticoagulants | CPT/HCPCS: 85610; 99211 ==

== ENCOUNTER 2021-04-30 09:57 | Outpatient (REF) | payer OTHER, SELFPAY ==
[2021-04-30 11:02] LABS: Cholesterol 151 mg/dL; HDL Cholesterol 27 mg/dL; LDL Cholesterol Calculated 58 mg/dl; Triglycerides 333 mg/dL
== END 2021-04-30 09:58 | disposition home or self-care (01) ==
LOC: HO.10HDL 09:57
PROVIDERS: Visit Provider Internal Medicine
DX: E78.5 Hyperlipidemia, unspecified (principal)
CPT/HCPCS: 36415; 80061

== ENCOUNTER → 2021-05-14 09:49 | Outpatient (BNVA) | payer OTHER, SELFPAY | PROVIDERS: PCP Internal Medicine; Visit Provider Internal Medicine | DX: I48.20 Chronic atrial fibrillation, unspecified (principal); Z51.81 Encounter for therapeutic drug level monitoring; Z79.01 Long term (current) use of anticoagulants | CPT/HCPCS: 85610; 99211 ==

== ENCOUNTER → 2021-05-28 09:58 | Outpatient (BNVA) | payer OTHER, SELFPAY | PROVIDERS: PCP Internal Medicine; Visit Provider Internal Medicine | DX: I48.20 Chronic atrial fibrillation, unspecified (principal); Z79.01 Long term (current) use of anticoagulants; Z51.81 Encounter for therapeutic drug level monitoring | CPT/HCPCS: 85610; 99211 ==

== ENCOUNTER → 2021-06-11 10:02 | Outpatient (BNVA) | payer OTHER, SELFPAY | PROVIDERS: PCP Internal Medicine; Visit Provider Internal Medicine | DX: I48.20 Chronic atrial fibrillation, unspecified (principal); Z79.01 Long term (current) use of anticoagulants; Z51.81 Encounter for therapeutic drug level monitoring | CPT/HCPCS: 85610; 99211 ==

== ENCOUNTER → 2021-07-09 10:02 | Outpatient (BNVA) | payer OTHER, SELFPAY | PROVIDERS: PCP Internal Medicine; Visit Provider Internal Medicine | DX: I48.20 Chronic atrial fibrillation, unspecified (principal); Z79.01 Long term (current) use of anticoagulants; Z51.81 Encounter for therapeutic drug level monitoring | CPT/HCPCS: 85610; 99211 ==

== ENCOUNTER 2021-07-24 10:06 | Outpatient (REF) | payer OTHER, SELFPAY ==
[2021-07-24 13:52] LABS: Alanine Aminotransferase 25 U/L (0-40); Albumin Level 4.5 g/dL (3.5-5.0); Alkaline Phosphatase 65 U/L (39-117); Anion Gap 13 (12-20); Aspartate Amino Transferase 26 U/L (5-37); Bilirubin Total 0.8 mg/dL (0.0-1.0); Blood Urea Nitrogen 18 mg/dL (9-16); Carbon Dioxide 27 mmol/L (22-29); Chloride 105 mmol/L (96-108); Cholesterol 151 mg/dL; Estimated Glomerular Filt Rate > 60; Glucose Fasting 139 mg/dL (60-99); HDL Cholesterol 25 mg/dL; LDL Cholesterol Calculated 80 mg/dl; Potassium 3.9 mmol/L (3.3-5.1); Sodium 141 mmol/L (135-145); Total Protein 7.2 g/dL (6.5-8.0); Triglycerides 230 mg/dL
== END 2021-07-24 10:07 | disposition home or self-care (01) ==
LOC: HO.10HDL 10:06
PROVIDERS: Visit Provider Internal Medicine
DX: E78.5 Hyperlipidemia, unspecified (principal); R73.03 Prediabetes; I10 Essential (primary) hypertension
CPT/HCPCS: 36415; 80053; 80061

== ENCOUNTER 2021-07-28 09:30 | Outpatient (REF) | payer OTHER, SELFPAY ==
[2021-07-28 11:21] LABS: Prostate Specific Antigen 0.86 ng/mL (<0.05-4.0)
== END 2021-07-28 09:31 | disposition home or self-care (01) ==
LOC: HO.10HDL 09:30
PROVIDERS: Visit Provider Urology
DX: Z12.5 Encounter for screening for malignant neoplasm of prostate (principal); C61 Malignant neoplasm of prostate
CPT/HCPCS: 36415; 84153

== ENCOUNTER → 2021-08-13 09:48 | Outpatient (BNVA) | payer OTHER, SELFPAY | PROVIDERS: PCP Internal Medicine; Visit Provider Internal Medicine | DX: I48.20 Chronic atrial fibrillation, unspecified (principal); Z51.81 Encounter for therapeutic drug level monitoring; Z79.01 Long term (current) use of anticoagulants | CPT/HCPCS: 85610; 99211 ==

== ENCOUNTER → 2021-09-17 09:45 | Outpatient (BNVA) | payer OTHER, SELFPAY | PROVIDERS: PCP Internal Medicine; Visit Provider Internal Medicine | DX: I48.20 Chronic atrial fibrillation, unspecified (principal); Z51.81 Encounter for therapeutic drug level monitoring; Z79.01 Long term (current) use of anticoagulants | CPT/HCPCS: 85610; 99211 ==

== ENCOUNTER → 2021-10-22 09:53 | Outpatient (BNVA) | payer OTHER, SELFPAY | PROVIDERS: PCP Internal Medicine; Visit Provider Internal Medicine | DX: I48.20 Chronic atrial fibrillation, unspecified (principal); Z51.81 Encounter for therapeutic drug level monitoring; Z79.01 Long term (current) use of anticoagulants | CPT/HCPCS: 85610; 99211 ==

== ENCOUNTER 2021-10-28 09:51 | Outpatient (REF) | payer OTHER, SELFPAY ==
[2021-10-28 11:02] LABS: MANUAL DIFF FLAG NO
[2021-10-28 11:15] LABS: Basophils Absolute Auto 0.1 X10*3/uL (0.0-0.2); Basophils Percent Auto 1.2 % (0-2); Eosinophils Absolute Auto 0.2 X10*3/uL (0.0-0.4); Eosinophils Percent Auto 3.5 % (0-4); Hematocrit 45.9 % (42.0-52.0); Hemoglobin 15.8 g/dl (14.0-18.0); Imm Gran Abs Auto 0.02 X10*3/uL (0.00-0.03); Imm Gran Pct Auto 0.4 % (0.0-0.4); Lymphocytes Absolute Auto 1.1 X10*3/uL (1.2-4.9); Lymphocytes Percent Auto 18.6 % (20-40); Mean Corpuscular HGB Conc 34.4 g/dl (31.0-36.0); Mean Corpuscular Hemoglobin 32.9 pg (27.0-33.0); Mean Corpuscular Volume 95.6 fL (80.0-98.0); Mean Platelet Volume 10.6 fL (9.4-12.4); Monocytes Absolute Auto 0.6 X10*3/uL (0.1-1.2); Monocytes Percent Auto 10.8 % (2-11); Neutrophils Absolute Auto 3.7 x10*3/uL (2.0-8.3); Neutrophils Percent Auto 65.5 % (45-73); Platelet Count 168 X10*3/uL (160-400); Red Cell Distribution Width 13.8 % (11.0-16.0); White Blood Count 5.7 X10*3/uL (4.8-10.8)
[2021-10-28 11:27] LABS: Estimated Average Glucose 128 mg/dL; Hemoglobin A1c % 6.1 %
[2021-10-28 11:39] LABS: Alanine Aminotransferase 33 U/L (0-40); Albumin Level 4.5 g/dL (3.5-5.0); Alkaline Phosphatase 61 U/L (39-117); Anion Gap 16 (12-20); Aspartate Amino Transferase 29 U/L (5-37); Bilirubin Total 1.2 mg/dL (0.0-1.0); Blood Urea Nitrogen 13 mg/dL (9-16); Calcium 10.5 mg/dL (8.4-10.2); Carbon Dioxide 26 mmol/L (22-29); Chloride 104 mmol/L (96-108); Estimated Glomerular Filt Rate > 60; Glucose Fasting 142 mg/dL (60-99); Potassium 3.8 mmol/L (3.3-5.1); Sodium 142 mmol/L (135-145)
== END 2021-10-28 09:52 | disposition home or self-care (01) ==
LOC: HO.10HDL 09:51
PROVIDERS: Visit Provider Internal Medicine
DX: I10 Essential (primary) hypertension (principal); R73.03 Prediabetes; M85.80 Other specified disorders of bone density and structure, unspecified site
CPT/HCPCS: 36415; 80053; 83036; 85025

== ENCOUNTER → 2021-11-26 09:58 | Outpatient (BNVA) | payer OTHER, SELFPAY | PROVIDERS: PCP Internal Medicine; Visit Provider Internal Medicine | DX: I48.20 Chronic atrial fibrillation, unspecified (principal); Z79.01 Long term (current) use of anticoagulants; Z51.81 Encounter for therapeutic drug level monitoring | CPT/HCPCS: 85610; 99211 ==

== ENCOUNTER → 2021-12-24 09:51 | Outpatient (BNVA) | payer OTHER, SELFPAY | PROVIDERS: PCP Internal Medicine; Visit Provider Internal Medicine | DX: I48.20 Chronic atrial fibrillation, unspecified (principal); Z79.01 Long term (current) use of anticoagulants; Z51.81 Encounter for therapeutic drug level monitoring | CPT/HCPCS: 85610; 99211 ==

== ENCOUNTER 2022-01-15 11:44 | Outpatient (REF) | payer OTHER, SELFPAY ==
[2022-01-15 12:44] LABS: Influenza A PCR POSITIVE (Negative); Influenza B PCR NEGATIVE (Negative); Resp Syncy Virus RNA Qual PCR NEGATIVE (Negative); SARS COV2 PCR INHOUSE NEGATIVE (Negative)
== END 2022-01-15 11:45 | disposition home or self-care (01) ==
LOC: HO.LNP 11:44
PROVIDERS: Visit Provider Internal Medicine
DX: Z20.822 Contact with and (suspected) exposure to COVID-19 (principal); R05.9 Cough, unspecified
CPT/HCPCS: 0241U

== ENCOUNTER 2022-01-20 12:03 | Outpatient (REF) | payer OTHER, SELFPAY ==
--- NOTE | ~2022-01-20 | XR_ITS ---
EXAMINATION: XR CHEST CLINICAL INFORMATION: Shortness of breath, cough and wheezing COMPARISON: Previous chest x-ray August 2019 TECHNIQUE: 2 views of the chest were obtained. FINDINGS: The cardiac silhouette is enlarged but stable. There is a left subclavian single chamber pacemaker that appears unchanged. Increased hilar markings questionable for pulmonary venous redistribution. Hilar and mediastinal contours are otherwise unremarkable. The lungs are otherwise clear. No pleural effusion or pneumothorax. There are degenerative changes of the spine. XR/XR chest 2V IMPRESSION: Unremarkable examination. Stable enlargement of the cardiac silhouette and question pulmonary venous redistribution.
== END 2022-01-20 12:04 | disposition home or self-care (01) ==
LOC: HO.XRAY 12:03
PROVIDERS: PCP Internal Medicine; Visit Provider Internal Medicine
DX: I48.20 Chronic atrial fibrillation, unspecified (principal); R05.9 Cough, unspecified; R06.02 Shortness of breath; R06.2 Wheezing; Z51.81 Encounter for therapeutic drug level monitoring; Z79.01 Long term (current) use of anticoagulants
CPT/HCPCS: 71046; 85610; 93005; 99211

== ENCOUNTER → 2022-01-28 09:43 | Outpatient (BNVA) | payer OTHER, SELFPAY | PROVIDERS: PCP Internal Medicine; Visit Provider Internal Medicine | DX: I48.20 Chronic atrial fibrillation, unspecified (principal); Z79.01 Long term (current) use of anticoagulants; Z51.81 Encounter for therapeutic drug level monitoring | CPT/HCPCS: 85610; 99211 ==

== ENCOUNTER → 2022-03-04 09:45 | Outpatient (BNVA) | payer OTHER, SELFPAY | PROVIDERS: PCP Internal Medicine; Visit Provider Internal Medicine | DX: I48.20 Chronic atrial fibrillation, unspecified (principal); Z51.81 Encounter for therapeutic drug level monitoring; Z79.01 Long term (current) use of anticoagulants | CPT/HCPCS: 85610; 99211 ==

== ENCOUNTER 2022-03-06 09:17 | Outpatient (REF) | payer OTHER, SELFPAY ==
[2022-03-06 10:54] LABS: MANUAL DIFF FLAG NO
[2022-03-06 11:06] LABS: Basophils Percent Auto 0.5 % (0-2); Eosinophils Absolute Auto 0.1 X10*3/uL (0.0-0.4); Eosinophils Percent Auto 1.1 % (0-4); Hematocrit 43.8 % (42.0-52.0); Hemoglobin 14.8 g/dl (14.0-18.0); Imm Gran Abs Auto 0.05 X10*3/uL (0.00-0.03); Imm Gran Pct Auto 0.6 % (0.0-0.4); Lymphocytes Absolute Auto 0.9 X10*3/uL (1.2-4.9); Lymphocytes Percent Auto 9.7 % (20-40); Mean Corpuscular HGB Conc 33.8 g/dl (31.0-36.0); Mean Corpuscular Hemoglobin 32.6 pg (27.0-33.0); Mean Corpuscular Volume 96.5 fL (80.0-98.0); Mean Platelet Volume 11.1 fL (9.4-12.4); Monocytes Absolute Auto 0.9 X10*3/uL (0.1-1.2); Monocytes Percent Auto 10.6 % (2-11); Neutrophils Absolute Auto 6.9 x10*3/uL (2.0-8.3); Neutrophils Percent Auto 77.5 % (45-73); Platelet Count 143 X10*3/uL (160-400); Red Blood Count 4.54 X10*6/uL (4.60-5.80); Red Cell Distribution Width 14.4 % (11.0-16.0); White Blood Count 8.9 X10*3/uL (4.8-10.8)
[2022-03-06 11:12] LABS: Appearance Urine Clear; Color Urine Yellow; Glucose Urine UA Negative (Negative); Leukocyte Esterase Urine Negative (Negative); Nitrite Urine Negative (Negative); Urine Blood Negative (Negative); Urine Ketones Negative (Negative); Urine Protein Negative (Neg-Trace)
[2022-03-06 11:34] LABS: Alanine Aminotransferase 21 U/L (0-40); Albumin Level 4.2 g/dL (3.5-5.0); Alkaline Phosphatase 55 U/L (39-117); Anion Gap 14 (12-20); Aspartate Amino Transferase 20 U/L (5-37); Bilirubin Total 2.2 mg/dL (0.0-1.0); Blood Urea Nitrogen 13 mg/dL (9-16); C Reactive Protein 4.22 mg/dL (< or = 0.50); Calcium 10.1 mg/dL (8.4-10.2); Carbon Dioxide 26 mmol/L (22-29); Chloride 104 mmol/L (96-108); Estimated Glomerular Filt Rate 58; Glucose Fasting 150 mg/dL (60-99); Potassium 3.9 mmol/L (3.3-5.1); Sodium 140 mmol/L (135-145); Total Protein 6.5 g/dL (6.5-8.0)
== END 2022-03-06 09:18 | disposition home or self-care (01) ==
LOC: HO.10HDL 09:17
PROVIDERS: Visit Provider Internal Medicine
DX: R10.9 Unspecified abdominal pain (principal); I12.9 Hypertensive chronic kidney disease with stage 1 through stage 4 chronic kidney disease, or unspecified chronic kidney disease; N18.9 Chronic kidney disease, unspecified
CPT/HCPCS: 36415; 80053; 81003; 85025; 86140; 87086

== ENCOUNTER 2022-03-06 11:40 | Emergency (ER) | payer OTHER, SELFPAY ==
--- NOTE | ~2022-03-06 | CT_ITS ---
EXAMINATION: CT ABDOMEN AND PELVIS WITHOUT CONTRAST CLINICAL INFORMATION: Lower abdominal pain. COMPARISON: CT scan of the abdomen and pelvis dated 02/25/2015. Pelvic CT scan dated 03/08/2015. TECHNIQUE: Multidetector volumetric imaging was performed from the superior aspect of the liver through the pubic symphysis. Sagittal and coronal reformatted images were obtained on the technologist's workstation. Lack of intravenous and oral contrast limits visceral evaluation. This CT examination was performed using dose optimization techniques as appropriate, variously including the following: *Automated exposure control *Adjustment of mA and/or kV according to patient size (this includes techniques or standardized protocols for targeted exams where dose is matched to indication/reason for exam; i.e. extremities or head) *Use of iterative reconstruction technique DLP: 715 mGy-cm FINDINGS: LUNG BASES: The visualized lung bases are unremarkable. LIVER, GALLBLADDER, AND BILIARY TREE: Unremarkable. PANCREAS: Unremarkable. SPLEEN: Unremarkable. ADRENAL GLANDS: Unremarkable. KIDNEYS AND URETERS: Right kidney, noncalcified fluid attenuation exophytic cyst off of the lower pole measures 4.9 cm (image 82, series 5). The left kidney is unremarkable. No nephrolithiasis or hydroureteronephrosis bilaterally. BLADDER: Unremarkable. GASTROINTESTINAL TRACT: Very small hiatal hernia. The remainder the stomach is unremarkable. The small bowel marker. There is abnormal mural thickening of the appendix in the right lower quadrant with cysts small calcifications and surrounding infiltrative changes. No organized fluid collection. Mild mural thickening at the base of the cecum as well. The remainder the colon shows mild diverticulosis in the descending colon without surrounding abnormality. The rectum is unremarkable. ABDOMINAL WALL: Small fat-containing umbilical hernia with mild fluid. LYMPH NODES: No lymphadenopathy. VASCULAR: Moderate to severe atherosclerosis most pronounced in the infrarenal abdominal aortic segment without significant dilatation. PELVIC VISCERA: Prostatomegaly measuring up to 142 mL. OSSEOUS STRUCTURES: Moderate to severe multilevel degenerative changes in the thoracolumbar spine without acute/suspicious abnormality. CT/CT abdomen pelvis wo IV con IMPRESSION: 1. Right lower quadrant findings consistent with acute appendicitis and appendicoliths without evidence for perforation or abscess formation. 2. Mild distal colonic diverticulosis without evidence for acute diverticulitis. 3. Small fat-containing umbilical hernia containing mild fluid. 4. Right renal cyst demonstrates benign features not requiring follow-up. No other significant renal abnormality. 5. Prostatomegaly.
--- NOTE | 2022-03-06 11:45 | ED_ITS ---
HPI - General Adult General Chief complaint: Abdominal Pain <DENNY Miranda - Last Filed: 03/06/22 11:49> Stated complaint: Abdominal Pain sent by <DENNY Miranda - Last Filed: 03/06/22 11:49> Time Seen by Provider: 03/06/22 14:16 <DENNY Miranda - Last Filed: 03/06/22 11:49> Source: patient <Eileen Almeida MD - Last Filed: 03/06/22 18:36> Mode of arrival: ambulatory <Eileen Almeida MD - Last Filed: 03/06/22 18:36> History of Present Illness HPI narrative: 81-year-old male with history of atrial fibrillation on chronic anticoagulation presents with lower abdominal discomfort since yesterday without associated fever, chills, nausea, vomiting and states his last bowel movement was yesterday and he has continued to pass flatus. He was seen at the office of his primary care provider who sent him over for a CT scan to rule out renal colic. <Eileen Almeida MD - Last Filed: 03/06/22 18:36> Related Data Home medications: Home Medications Medication Instructions Recorded Confirmed doxazosin 2 mg tablet 1 mg PO BID 01/16/20 03/04/22 furosemide 40 mg tablet 40 mg PO BID 01/16/20 03/04/22 lisinopril 40 mg tablet 40 mg PO ONCE 01/16/20 03/04/22 metoprolol succinate 50 mg 50 mg PO DAILY 01/16/20 03/04/22 tablet,extended release 24 hr simvastatin 20 mg tablet 20 mg PO DAILY 01/16/20 03/04/22 timolol maleate 0.5 % eye drops 1 drp ophthalmic (eye) DAILY 01/16/20 03/04/22 fenofibrate 54 mg tablet 54 mg PO DAILY 05/14/21 03/04/22 Previous Rx's Medication Instructions Recorded warfarin 2.5 mg tablet 2.5 mg PO DAILY #90 tabs 11/22/19 baclofen 10 mg tablet 10 mg PO TID 30 days #90 tabs 02/28/20 amlodipine 10 mg tablet 10 mg PO BID #180 tabs 04/29/21 amoxicillin 875 mg-potassium 1 tab PO Q12H 10 days #20 tabs 03/06/22 clavulanate 125 mg tablet <DENNY Miranda - Last Filed: 03/06/22 11:49> Allergies/adverse reactions: Allergies Allergy/AdvReac Type Severity Reaction Status Date / Time No Known Allergies Allergy Mild NONE Verified 03/04/22 09:54 <DENNY Miranda - Last Filed: 03/06/22 11:49> Review of Systems Review of Systems: Pertinent positives and negatives as stated in HPI <Eileen Almeida MD - Last Filed: 03/06/22 18:36> PMFSH Past Medical History Source: nursing notes reviewed <Eileen Almeida MD - Last Filed: 03/06/22 18:36> Medical History: Medical History Cardiac pacemaker in situ Chronic atrial fibrillation HTN (hypertension) 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 Lumbar radiculopathy Obesity Obstructive sleep apnea <DENNY Miranda - Last Filed: 03/06/22 11:49> Surgical History: Surgical History History of permanent cardiac pacemaker placement <DENNY Miranda - Last Filed: 03/06/22 11:49> Family History Family History: Family History Father Diabetes Cancer Mother Cancer <DENNY Miranda - Last Filed: 03/06/22 11:49> Social History Social History: Social History Smoked in Last 30 Days: No Advance Directives: Yes Advance Directives on File: Yes Advance Directives Date on File: 11/13/19 <DENNY Miranda - Last Filed: 03/06/22 11:49> Physical Exam ED Vital Signs: Vital Signs - 24 hr 03/06/22 11:47 Temperature 98.3 F Pulse Rate 73 Respiratory Rate 20 Blood Pressure 142/68 H Pulse Oximetry 94 Oxygen Delivery Method Room Air BMI result Body Mass Index 33.0 <DENNY Miranda - Last Filed: 03/06/22 11:49> Vital Signs - 24 hr 03/06/22 11:47 Temperature 98.3 F Pulse Rate 73 Respiratory Rate 20 Blood Pressure 142/68 H Pulse Oximetry 94 Oxygen Delivery Method Room Air BMI result Body Mass Index 33.0 VITAL SIGNS: Reviewed. GENERAL: Elevated BMI, Well developed, well nourished, in no acute distress. HEAD: Normocephalic/atraumatic EYES: PERRLA, EOMI EARS: Ext canals without abnormality OROPHARYNX: no oral lesions noted, posterior pharynx clear LUNGS: Normal breath sounds. No adventitious sounds or accessory muscle use. SpO2<94> CARDIOVASCULAR: IRR/IRR rate and rhythm without noted murmurs, no JVD or lower extremity edema. ABDOMEN: Soft, non-tender, non-distended with bowel sounds, nontender umbilical hernia without overlying skin changes. MUSCULOSKELETAL: No tenderness, deformities, or effusions noted on gross inspection. EXTREMITIES: No cyanosis, clubbing or edema. SKIN: Inspection of the skin reveals no rashes NEUROLOGIC: Alert and oriented x 4. Strength and sensation to light touch were grossly intact x 4. Bladder Scan: 165 <Eileen Almeida MD - Last Filed: 03/06/22 18:36> Course Course Course Narrative: RME performed by Shalini Saez PA-C. Patient is an 81 year old male presenting to the emergency department with abdominal pain. Patient states that previously he had pain similar and was in the ICU for 3 days because his appendix ruptured but never had surgery due to his anti-coagulation status. <DENNY Miranda - Last Filed: 03/06/22 11:49> Medical Decision Making Medical Decision Making MDM Narrative: 81-year-old male appears well, who is referred by his primary care provider for possible renal colic. Patient does have past significant history of ruptured appendix that was treated with IR drain. I doubt obstructive symptoms and there is a possibility of UTI. Reviewed all investigations and my interpretation is in agreement with radiology that this is a possibility of recurrent appendicitis though there are no constitutional symptoms or abdomen exam to further support this finding. I did further discuss this with the general surgeon, Dr. Thurston and he agrees with outpatient antibiotic treatment and will see the patient in the clinic. <Eileen Almeida MD - Last Filed: 03/06/22 18:36> Differential Diagnosis Differential Diagnoses: The differential diagnosis associated with the presentation includes <Eileen Almeida MD - Last Filed: 03/06/22 18:36> Please see the discussion above <Eileen Almeida MD - Last Filed: 03/06/22 18:36> Consult Healthcare Provider Management of the patient was discussed with: Care Taker <Eileen Almeida MD - Last Filed: 03/06/22 18:36> 1816: I discussed case with Dr. Thurston, please see the discussion above. <Eileen Almeida MD - Last Filed: 03/06/22 18:36> Lab Data MDM Lab Attestation statement: I reviewed the patient's lab results. <Eileen Almeida MD - Last Filed: 03/06/22 18:36> Please see the discussion above <Eileen Almeida MD - Last Filed: 03/06/22 18:36> Result Diagrams: 03/06/22 12:04 03/06/22 12:04 <DENNY Miranda - Last Filed: 03/06/22 11:49> Labs: Lab Results 03/06/22 03/06/22 03/06/22 Range/Units 12:04 12:04 12:04 WBC 8.6 (4.8-10.8) X10*3/uL RBC 4.42 L (4.60-5.80) X10*6/uL Hgb 14.4 (14.0-18.0) g/dl Hct 42.2 (42.0-52.0) % MCV 95.5 (80.0-98.0) fL MCH 32.6 (27.0-33.0) pg MCHC 34.1 (31.0-36.0) g/dl RDW 14.1 (11.0-16.0) % Plt Count 139 L (160-400) X10*3/uL MPV 10.6 (9.4-12.4) fL Immature Gran % (Auto) 0.2 (0.0-0.4) % Neut % (Auto) 74.7 H (45-73) % Lymph % (Auto) 11.7 L (20-40) % Mckinley % (Auto) 11.7 H (2-11) % Eos % (Auto) 1.1 (0-4) % Baso % (Auto) 0.6 (0-2) % Lymph # (Auto) 1.0 L (1.2-4.9) X10*3/uL Mckinley # (Auto) 1.0 (0.1-1.2) X10*3/uL Eos # (Auto) 0.1 (0.0-0.4) X10*3/uL Baso # (Auto) 0.1 (0.0-0.2) X10*3/uL Abs Immat Gran (auto) 0.02 (0.00-0.03) X10*3/uL Absolute Neuts (auto) 6.4 (2.0-8.3) x10*3/uL Absolute Nucleated RBC 0.000 (0.0-0.012) X10*3/uL Nucleated RBC % (auto) 0.0 (0.0-0.2) /100WBC PT 25.7 H (10.0-13.1) SEC INR 2.2 H (0.9-1.1) APTT 35.6 (26.0-36.4) SEC Sodium 139 (135-145) mmol/L Potassium 4.0 (3.3-5.1) mmol/L Chloride 104 (96-108) mmol/L Carbon Dioxide 26 (22-29) mmol/L Anion Gap 13 (12-20) BUN 13 (9-16) mg/dL Creatinine 1.31 (0.5-1.4) mg/dL Estim Creat Clear Calc 53.5 Estimated GFR 53 Random Glucose 137 H (60-115) mg/dL Calcium 10.0 (8.4-10.2) mg/dL Magnesium 2.0 (1.6-2.6) mg/dL Total Bilirubin 2.3 H (0.0-1.0) mg/dL AST 18 (5-37) U/L ALT 18 (0-40) U/L Alkaline Phosphatase 56 (39-117) U/L Troponin I High Sens (<3.5-35.0) ng/L Total Protein 6.5 (6.5-8.0) g/dL Albumin 4.3 (3.5-5.0) g/dL Influenza Type A (PCR) (Negative) Influenza Type B (PCR) (Negative) RSV RNA Qual (PCR) (Negative) SARS-CoV-2 RNA (RT-PCR) (Negative) 01/27/23 01/27/23 Range/Units 12:04 12:04 WBC (4.8-10.8) X10*3/uL RBC (4.60-5.80) X10*6/uL Hgb (14.0-18.0) g/dl Hct (42.0-52.0) % MCV (80.0-98.0) fL MCH (27.0-33.0) pg MCHC (31.0-36.0) g/dl RDW (11.0-16.0) % Plt Count (160-400) X10*3/uL MPV (9.4-12.4) fL Immature Gran % (Auto) (0.0-0.4) % Neut % (Auto) (45-73) % Lymph % (Auto) (20-40) % Mckinley % (Auto) (2-11) % Eos % (Auto) (0-4) % Baso % (Auto) (0-2) % Lymph # (Auto) (1.2-4.9) X10*3/uL Mckinley # (Auto) (0.1-1.2) X10*3/uL Eos # (Auto) (0.0-0.4) X10*3/uL Baso # (Auto) (0.0-0.2) X10*3/uL Abs Immat Gran (auto) (0.00-0.03) X10*3/uL Absolute Neuts (auto) (2.0-8.3) x10*3/uL Absolute Nucleated RBC (0.0-0.012) X10*3/uL Nucleated RBC % (auto) (0.0-0.2) /100WBC PT (10.0-13.1) SEC INR (0.9-1.1) APTT (26.0-36.4) SEC Sodium (135-145) mmol/L Potassium (3.3-5.1) mmol/L Chloride (96-108) mmol/L Carbon Dioxide (22-29) mmol/L Anion Gap (12-20) BUN (9-16) mg/dL Creatinine (0.5-1.4) mg/dL Estim Creat Clear Calc Estimated GFR Random Glucose (60-115) mg/dL Calcium (8.4-10.2) mg/dL Magnesium (1.6-2.6) mg/dL Total Bilirubin (0.0-1.0) mg/dL AST (5-37) U/L ALT (0-40) U/L Alkaline Phosphatase (39-117) U/L Troponin I High Sens 17.9 (<3.5-35.0) ng/L Total Protein (6.5-8.0) g/dL Albumin (3.5-5.0) g/dL Influenza Type A (PCR) NEGATIVE (Negative) Influenza Type B (PCR) NEGATIVE (Negative) RSV RNA Qual (PCR) NEGATIVE (Negative) SARS-CoV-2 RNA (RT-PCR) NEGATIVE (Negative) <DENNY Miranda - Last Filed: 03/06/22 11:49> Lab Results 03/06/22 03/06/22 03/06/22 Range/Units 12:04 12:04 12:04 WBC 8.6 (4.8-10.8) X10*3/uL RBC 4.42 L (4.60-5.80) X10*6/uL Hgb 14.4 (14.0-18.0) g/dl Hct 42.2 (42.0-52.0) % MCV 95.5 (80.0-98.0) fL MCH 32.6 (27.0-33.0) pg MCHC 34.1 (31.0-36.0) g/dl RDW 14.1 (11.0-16.0) % Plt Count 139 L (160-400) X10*3/uL MPV 10.6 (9.4-12.4) fL Immature Gran % (Auto) 0.2 (0.0-0.4) % Neut % (Auto) 74.7 H (45-73) % Lymph % (Auto) 11.7 L (20-40) % Mckinley % (Auto) 11.7 H (2-11) % Eos % (Auto) 1.1 (0-4) % Baso % (Auto) 0.6 (0-2) % Lymph # (Auto) 1.0 L (1.2-4.9) X10*3/uL Mckinley # (Auto) 1.0 (0.1-1.2) X10*3/uL Eos # (Auto) 0.1 (0.0-0.4) X10*3/uL Baso # (Auto) 0.1 (0.0-0.2) X10*3/uL Abs Immat Gran (auto) 0.02 (0.00-0.03) X10*3/uL Absolute Neuts (auto) 6.4 (2.0-8.3) x10*3/uL Absolute Nucleated RBC 0.000 (0.0-0.012) X10*3/uL Nucleated RBC % (auto) 0.0 (0.0-0.2) /100WBC PT 25.7 H (10.0-13.1) SEC INR 2.2 H (0.9-1.1) APTT 35.6 (26.0-36.4) SEC Sodium 139 (135-145) mmol/L Potassium 4.0 (3.3-5.1) mmol/L Chloride 104 (96-108) mmol/L Carbon Dioxide 26 (22-29) mmol/L Anion Gap 13 (12-20) BUN 13 (9-16) mg/dL Creatinine 1.31 (0.5-1.4) mg/dL Estim Creat Clear Calc 53.5 Estimated GFR 53 Random Glucose 137 H (60-115) mg/dL Calcium 10.0 (8.4-10.2) mg/dL Magnesium 2.0 (1.6-2.6) mg/dL Total Bilirubin 2.3 H (0.0-1.0) mg/dL AST 18 (5-37) U/L ALT 18 (0-40) U/L Alkaline Phosphatase 56 (39-117) U/L Troponin I High Sens (<3.5-35.0) ng/L Total Protein 6.5 (6.5-8.0) g/dL Albumin 4.3 (3.5-5.0) g/dL Influenza Type A (PCR) (Negative) Influenza Type B (PCR) (Negative) RSV RNA Qual (PCR) (Negative) SARS-CoV-2 RNA (RT-PCR) (Negative) 03/06/22 03/06/22 Range/Units 12:04 12:04 WBC (4.8-10.8) X10*3/uL RBC (4.60-5.80) X10*6/uL Hgb (14.0-18.0) g/dl Hct (42.0-52.0) % MCV (80.0-98.0) fL MCH (27.0-33.0) pg MCHC (31.0-36.0) g/dl RDW (11.0-16.0) % Plt Count (160-400) X10*3/uL MPV (9.4-12.4) fL Immature Gran % (Auto) (0.0-0.4) % Neut % (Auto) (45-73) % Lymph % (Auto) (20-40) % Mckinley % (Auto) (2-11) % Eos % (Auto) (0-4) % Baso % (Auto) (0-2) % Lymph # (Auto) (1.2-4.9) X10*3/uL Mckinley # (Auto) (0.1-1.2) X10*3/uL Eos # (Auto) (0.0-0.4) X10*3/uL Baso # (Auto) (0.0-0.2) X10*3/uL Abs Immat Gran (auto) (0.00-0.03) X10*3/uL Absolute Neuts (auto) (2.0-8.3) x10*3/uL Absolute Nucleated RBC (0.0-0.012) X10*3/uL Nucleated RBC % (auto) (0.0-0.2) /100WBC PT (10.0-13.1) SEC INR (0.9-1.1) APTT (26.0-36.4) SEC Sodium (135-145) mmol/L Potassium (3.3-5.1) mmol/L Chloride (96-108) mmol/L Carbon Dioxide (22-29) mmol/L Anion Gap (12-20) BUN (9-16) mg/dL Creatinine (0.5-1.4) mg/dL Estim Creat Clear Calc Estimated GFR Random Glucose (60-115) mg/dL Calcium (8.4-10.2) mg/dL Magnesium (1.6-2.6) mg/dL Total Bilirubin (0.0-1.0) mg/dL AST (5-37) U/L ALT (0-40) U/L Alkaline Phosphatase (39-117) U/L Troponin I High Sens 17.9 (<3.5-35.0) ng/L Total Protein (6.5-8.0) g/dL Albumin (3.5-5.0) g/dL Influenza Type A (PCR) NEGATIVE (Negative) Influenza Type B (PCR) NEGATIVE (Negative) RSV RNA Qual (PCR) NEGATIVE (Negative) SARS-CoV-2 RNA (RT-PCR) NEGATIVE (Negative) <Eileen Almeida MD - Last Filed: 03/06/22 18:36> Independent Interpretation I performed an independent interpretation of an: EKG <Eileen Almeida MD - Last Filed: 03/06/22 18:36> Interpretation: Ventricular pace rhythm with PVCs, HR-69, no STEMI <Eileen Almeida MD - Last Filed: 03/06/22 18:36> Radiology Impression Radiologist Impression: My interpretation is in agreement with radiology's impression of imaging study. <Eileen Almeida MD - Last Filed: 03/06/22 18:36> External Record Review External record reviewed: Outpatient record and Prior outpatient labs <Eileen Almeida MD - Last Filed: 03/06/22 18:36> Chronic Conditions Patient?s care impacted by: Hypertension <Eileen Almeida MD - Last Filed: 03/06/22 18:36> Critical Care Time Critical Care Time Critical Care Time: Yes <Eileen Almeida MD - Last Filed: 03/06/22 18:36> Total Critical Care Time: 30 <Eileen Almeida MD - Last Filed: 03/06/22 18:36> Attestation: I personally attest to this time spent taking care of the patient. <Eileen Almeida MD - Last Filed: 03/06/22 18:36> Discharge Plan Discharge Clinical Impression: Appendicitis <DENNY Miranda - Last Filed: 03/06/22 11:49> Patient Disposition: Home, Self-Care <DENNY Miranda - Last Filed: 03/06/22 11:49> Instructions: Abdominal Pain (ED) <DENNY Miranda - Last Filed: 03/06/22 11:49> Additional Instructions: 1. Resume all home medications as prescribed. 2. Complete the entire course of antibiotics, and a referral to follow-up with general surgery, Dr. Thurston has been provided below. Please call the office on Wednesday morning to set up your appointment. 3. Please do not hesitate to return to the emergency room should you experience any acute worsening of your symptoms. <DENNY Miranda - Last Filed: 03/06/22 11:49> Prescriptions: New amoxicillin-pot clavulanate 875-125 mg tablet 1 tab PO Q12H 10 Days Qty: 20 0RF No Action amlodipine 10 mg tablet 10 mg PO BID Qty: 180 2RF warfarin 2.5 mg tablet 2.5 mg PO DAILY Qty: 90 0RF Protocol: Dose Management Condition: Wednesday (Week One) Dose/Route: 1.25 mg Instruction: 0.5 x 2.5 mg tablets Condition: Wednesday Dose/Route: 1.25 mg Instruction: 0.5 x 2.5 mg tablets Condition: Wednesday Dose/Route: 1.25 mg Instruction: 0.5 x 2.5 mg tablets Condition: Wednesday Dose/Route: 2.5 mg Instruction: 1 x 2.5 mg tablet Condition: Dose/Route: 1.25 mg Instruction: 0.5 x 2.5 mg tablets Condition: Wednesday Dose/Route: 1.25 mg Instruction: 0.5 x 2.5 mg tablets Condition: Wednesday Dose/Route: 1.25 mg Instruction: 0.5 x 2.5 mg tablets Condition: Wednesday (Week Two) Dose/Route: 1.25 mg Instruction: 0.5 x 2.5 mg tablets Condition: Wednesday Dose/Route: 1.25 mg Instruction: 0.5 x 2.5 mg tablets Condition: Wednesday Dose/Route: 1.25 mg Instruction: 0.5 x 2.5 mg tablets Condition: Wednesday Dose/Route: 1.25 mg Instruction: 0.5 x 2.5 mg tablets Condition: Dose/Route: 1.25 mg Instruction: 0.5 x 2.5 mg tablets Condition: Wednesday Dose/Route: 1.25 mg Instruction: 0.5 x 2.5 mg tablets Condition: Wednesday Dose/Route: 1.25 mg Instruction: 0.5 x 2.5 mg tablets Protocol Text: Adjustment Start Date: Wednesday03/04/22 INR Value: 1.8 INR Date: 03/04/22 Recheck Date: 04/08/22 Additional Instructions: AVOID GREENS X 3 DAYS, EAT ORANGE AND REDS TO HELP[ RAISE IT baclofen 10 mg tablet 10 mg PO TID 30 Days Qty: 90 8RF simvastatin 20 mg tablet 20 mg PO DAILY furosemide 40 mg tablet 40 mg PO BID timolol maleate 0.5 % drops 1 drp ophthalmic (eye) DAILY metoprolol succinate 50 mg tablet extended release 24 hr 50 mg PO DAILY lisinopril 40 mg tablet 40 mg PO ONCE doxazosin 2 mg tablet 1 mg PO BID fenofibrate 54 mg tablet 54 mg PO DAILY <DENNY Miranda - Last Filed: 03/06/22 11:49> Referrals: Magno Reddy MD [Primary Care Provider] - Aniket Thurston MD [Physician] - <DENNY Miranda - Last Filed: 03/06/22 11:49>
[2022-03-06 11:47] VITALS: BP 142/68; PULSE 73; RESP 20; TEMP 36.8; O2SAT 94; BMI 33.0
--- NOTE | 2022-03-06 11:48 | ECG_ITS ---
Test Reason : CP Blood Pressure : / mmHG Vent. Rate : 069 BPM Atrial Rate : 048 BPM P-R Int : 000 ms QRS Dur : 200 ms QT Int : 458 ms P-R-T Axes : 000 209 060 degrees QTc Int : 490 ms Ventricular-paced rhythm with premature ventricular or aberrantly conducted complexes Abnormal ECG When compared with ECG of 22-SEP-2017 12:59, No significant changes seen Referred By: Shalini Saez Electronically Signed By:SAEID RIDDLE
[2022-03-06 12:09] LABS: MANUAL DIFF FLAG NO
[2022-03-06 12:21] LABS: INTERNATIONAL NORM RATIO 2.2 (0.9-1.1); Prothrombin Time 25.7 SEC (10.0-13.1)
[2022-03-06 12:22] LABS: Basophils Absolute Auto 0.1 X10*3/uL (0.0-0.2); Basophils Percent Auto 0.6 % (0-2); Eosinophils Absolute Auto 0.1 X10*3/uL (0.0-0.4); Eosinophils Percent Auto 1.1 % (0-4); Hematocrit 42.2 % (42.0-52.0); Hemoglobin 14.4 g/dl (14.0-18.0); Imm Gran Abs Auto 0.02 X10*3/uL (0.00-0.03); Imm Gran Pct Auto 0.2 % (0.0-0.4); Lymphocytes Percent Auto 11.7 % (20-40); Mean Corpuscular HGB Conc 34.1 g/dl (31.0-36.0); Mean Corpuscular Hemoglobin 32.6 pg (27.0-33.0); Mean Corpuscular Volume 95.5 fL (80.0-98.0); Mean Platelet Volume 10.6 fL (9.4-12.4); Monocytes Percent Auto 11.7 % (2-11); Neutrophils Absolute Auto 6.4 x10*3/uL (2.0-8.3); Neutrophils Percent Auto 74.7 % (45-73); Platelet Count 139 X10*3/uL (160-400); Red Blood Count 4.42 X10*6/uL (4.60-5.80); Red Cell Distribution Width 14.1 % (11.0-16.0); White Blood Count 8.6 X10*3/uL (4.8-10.8)
[2022-03-06 12:24] LABS: Partial Thromboplastin Time 35.6 SEC (26.0-36.4)
[2022-03-06 12:31] LABS: Alanine Aminotransferase 18 U/L (0-40); Albumin Level 4.3 g/dL (3.5-5.0); Alkaline Phosphatase 56 U/L (39-117); Anion Gap 13 (12-20); Aspartate Amino Transferase 18 U/L (5-37); Bilirubin Total 2.3 mg/dL (0.0-1.0); Blood Urea Nitrogen 13 mg/dL (9-16); Carbon Dioxide 26 mmol/L (22-29); Chloride 104 mmol/L (96-108); Creatinine Clr Calc Pharmacy 53.5; Estimated Glomerular Filt Rate 53; Glucose Random 137 mg/dL (60-115); Sodium 139 mmol/L (135-145); Total Protein 6.5 g/dL (6.5-8.0)
[2022-03-06 12:39] LABS: Troponin-I High Sensitivity 17.9 ng/L (<3.5-35.0)
[2022-03-06 12:48] LABS: Influenza A PCR NEGATIVE (Negative); Influenza B PCR NEGATIVE (Negative); Resp Syncy Virus RNA Qual PCR NEGATIVE (Negative); SARS COV2 PCR INHOUSE NEGATIVE (Negative)
[2022-03-06] MEDS: Amoxicillin/Potassium Clav 875 MG TABLET PO (18:51)
== END 2022-03-06 19:06 | disposition home or self-care (01) ==
PROVIDERS: Physician Assistant Medical; Emergency Provider Student in an Organized Health Care Education/Training Program; PCP Internal Medicine
DX: K37 Unspecified appendicitis (principal); R10.30 Lower abdominal pain, unspecified; Z20.822 Contact with and (suspected) exposure to COVID-19; Z20.828 Contact with and (suspected) exposure to other viral communicable diseases; I10 Essential (primary) hypertension; I48.20 Chronic atrial fibrillation, unspecified; E66.9 Obesity, unspecified; Z68.33 Body mass index [BMI] 33.0-33.9, adult; Z79.01 Long term (current) use of anticoagulants; Z79.02 Long term (current) use of antithrombotics/antiplatelets; Z79.899 Other long term (current) drug therapy; Z95.0 Presence of cardiac pacemaker
CPT/HCPCS: 0241U; 36415; 51798; 74176; 80053; 83735; 84484; 85025; 85610; 85730; 93005; 99284; 99285

== ENCOUNTER → 2022-03-10 09:48 | Outpatient (BNVA) | payer OTHER, SELFPAY | PROVIDERS: PCP Internal Medicine; Referring Provider Internal Medicine; Visit Provider Surgery | DX: Z13.89 Encounter for screening for other disorder (principal) ==

== ENCOUNTER → 2022-04-07 09:56 | Outpatient (BNVA) | payer OTHER, SELFPAY | PROVIDERS: PCP Internal Medicine; Visit Provider Surgery | DX: K35.33 Acute appendicitis with perforation, localized peritonitis, and gangrene, with abscess (principal); I48.20 Chronic atrial fibrillation, unspecified; Z79.01 Long term (current) use of anticoagulants; Z51.81 Encounter for therapeutic drug level monitoring | CPT/HCPCS: 85610; 99211 ==

== ENCOUNTER 2022-04-22 09:23 | Outpatient (REF) | payer OTHER, SELFPAY ==
[2022-04-22 10:35] LABS: MANUAL DIFF FLAG NO
[2022-04-22 10:41] LABS: Basophils Absolute Auto 0.1 X10*3/uL (0.0-0.2); Eosinophils Absolute Auto 0.2 X10*3/uL (0.0-0.4); Eosinophils Percent Auto 3.3 % (0-4); Hemoglobin 15.5 g/dl (14.0-18.0); Imm Gran Abs Auto 0.02 X10*3/uL (0.00-0.03); Imm Gran Pct Auto 0.3 % (0.0-0.4); Lymphocytes Absolute Auto 1.2 X10*3/uL (1.2-4.9); Mean Corpuscular HGB Conc 34.4 g/dl (31.0-36.0); Mean Corpuscular Hemoglobin 33.1 pg (27.0-33.0); Mean Corpuscular Volume 96.2 fL (80.0-98.0); Mean Platelet Volume 11.4 fL (9.4-12.4); Monocytes Absolute Auto 0.6 X10*3/uL (0.1-1.2); Monocytes Percent Auto 10.2 % (2-11); Neutrophils Percent Auto 66.2 % (45-73); Platelet Count 170 X10*3/uL (160-400); Red Blood Count 4.68 X10*6/uL (4.60-5.80); Red Cell Distribution Width 13.9 % (11.0-16.0); White Blood Count 6.1 X10*3/uL (4.8-10.8)
[2022-04-22 11:12] LABS: Estimated Average Glucose 128 mg/dL; Hemoglobin A1c % 6.1 %
[2022-04-22 11:25] LABS: Alanine Aminotransferase 27 U/L (0-40); Albumin Level 4.4 g/dL (3.5-5.0); Alkaline Phosphatase 55 U/L (39-117); Anion Gap 12 (12-20); Aspartate Amino Transferase 26 U/L (5-37); Bilirubin Total 1.3 mg/dL (0.0-1.0); Blood Urea Nitrogen 18 mg/dL (9-16); Calcium 10.1 mg/dL (8.4-10.2); Carbon Dioxide 27 mmol/L (22-29); Chloride 107 mmol/L (96-108); Estimated Glomerular Filt Rate 58; Glucose Random 167 mg/dL (60-115); Potassium 4.2 mmol/L (3.3-5.1); Sodium 142 mmol/L (135-145); Total Protein 6.6 g/dL (6.5-8.0)
== END 2022-04-22 09:24 | disposition home or self-care (01) ==
LOC: HO.10HDL 09:23
PROVIDERS: Visit Provider Internal Medicine
DX: I10 Essential (primary) hypertension (principal); I48.0 Paroxysmal atrial fibrillation; R73.03 Prediabetes; G47.33 Obstructive sleep apnea (adult) (pediatric)
CPT/HCPCS: 36415; 80053; 83036; 85025

== ENCOUNTER → 2022-05-06 10:16 | Outpatient (BNVA) | payer OTHER, SELFPAY | PROVIDERS: PCP Internal Medicine; Visit Provider Internal Medicine | DX: I48.20 Chronic atrial fibrillation, unspecified (principal); Z51.81 Encounter for therapeutic drug level monitoring; Z79.01 Long term (current) use of anticoagulants | CPT/HCPCS: 85610; 99211 ==

== ENCOUNTER → 2022-06-03 09:58 | Outpatient (BNVA) | payer OTHER, SELFPAY | PROVIDERS: PCP Internal Medicine; Visit Provider Internal Medicine | DX: I48.20 Chronic atrial fibrillation, unspecified (principal); Z51.81 Encounter for therapeutic drug level monitoring; Z79.01 Long term (current) use of anticoagulants | CPT/HCPCS: 85610; 99211 ==

== ENCOUNTER → 2022-06-30 09:40 | Outpatient (BNVA) | payer OTHER, SELFPAY | PROVIDERS: PCP Internal Medicine; Visit Provider Internal Medicine | DX: I48.20 Chronic atrial fibrillation, unspecified (principal); Z51.81 Encounter for therapeutic drug level monitoring; Z79.01 Long term (current) use of anticoagulants | CPT/HCPCS: 85610; 99211 ==

== ENCOUNTER 2022-07-22 11:35 | Outpatient (REF) | payer OTHER, SELFPAY ==
[2022-07-22 13:16] LABS: MANUAL DIFF FLAG NO
[2022-07-22 13:27] LABS: Basophils Percent Auto 0.6 % (0-2); Eosinophils Absolute Auto 0.4 X10*3/uL (0.0-0.4); Eosinophils Percent Auto 5.5 % (0-4); Hematocrit 43.9 % (42.0-52.0); Hemoglobin 14.3 g/dl (14.0-18.0); Imm Gran Abs Auto 0.03 X10*3/uL (0.00-0.03); Imm Gran Pct Auto 0.4 % (0.0-0.4); Lymphocytes Absolute Auto 1.1 X10*3/uL (1.2-4.9); Lymphocytes Percent Auto 15.7 % (20-40); Mean Corpuscular HGB Conc 32.6 g/dl (31.0-36.0); Mean Corpuscular Hemoglobin 32.4 pg (27.0-33.0); Mean Corpuscular Volume 99.3 fL (80.0-98.0); Mean Platelet Volume 11.2 fL (9.4-12.4); Monocytes Absolute Auto 0.7 X10*3/uL (0.1-1.2); Monocytes Percent Auto 9.8 % (2-11); Neutrophils Absolute Auto 4.9 x10*3/uL (2.0-8.3); Platelet Count 161 X10*3/uL (160-400); Red Blood Count 4.42 X10*6/uL (4.60-5.80); Red Cell Distribution Width 14.7 % (11.0-16.0); White Blood Count 7.2 X10*3/uL (4.8-10.8)
[2022-07-22 13:33] LABS: Estimated Average Glucose 123 mg/dL; Hemoglobin A1c % 5.9 %; Prothrombin Time 24.1 SEC (10.0-13.1)
[2022-07-22 13:38] LABS: Alanine Aminotransferase 20 U/L (0-40); Albumin Level 4.2 g/dL (3.5-5.0); Alkaline Phosphatase 44 U/L (39-117); Anion Gap 13 (12-20); Aspartate Amino Transferase 24 U/L (5-37); Blood Urea Nitrogen 17 mg/dL (9-16); Calcium 11.4 mg/dL (8.4-10.2); Carbon Dioxide 30 mmol/L (22-29); Chloride 106 mmol/L (96-108); Estimated Glomerular Filt Rate 53; Glucose Random 128 mg/dL (60-115); Potassium 4.1 mmol/L (3.3-5.1); Sodium 145 mmol/L (135-145); Total Protein 7.2 g/dL (6.5-8.0)
== END 2022-07-22 11:36 | disposition home or self-care (01) ==
LOC: HO.10HDL 11:35
PROVIDERS: Visit Provider Internal Medicine
DX: I48.0 Paroxysmal atrial fibrillation (principal); I10 Essential (primary) hypertension; R05.9 Cough, unspecified; R09.89 Other specified symptoms and signs involving the circulatory and respiratory systems; R73.03 Prediabetes
CPT/HCPCS: 36415; 80053; 83036; 85025; 85610

== ENCOUNTER 2022-07-22 11:50 | Outpatient (REF) | payer OTHER, SELFPAY ==
--- NOTE | ~2022-07-22 | XR_ITS ---
EXAMINATION: XR CHEST CLINICAL INFORMATION: Cough COMPARISON: Previous chest x-ray January 2022 TECHNIQUE: 2 views of the chest were obtained. FINDINGS: The cardiac silhouette is slightly enlarged but stable. There is a left subclavian single chamber pacemaker in satisfactory position. There is linear scarring or chronic subsegmental atelectasis at the left lung base that is stable. The lungs are clear. No pleural effusion or pneumothorax. Degenerative changes of the spine. XR/XR chest 2V IMPRESSION: No evidence for acute disease in the chest.
== END 2022-07-22 11:51 | disposition home or self-care (01) ==
LOC: HO.XRAY 11:50
PROVIDERS: PCP Internal Medicine; Visit Provider Internal Medicine
DX: R05.9 Cough, unspecified (principal); I10 Essential (primary) hypertension; I48.0 Paroxysmal atrial fibrillation
CPT/HCPCS: 71046

== ENCOUNTER 2022-07-23 10:50 | Outpatient (REF) | payer OTHER, SELFPAY ==
[2022-07-23 14:18] LABS: Prostate Specific Antigen 1.37 ng/mL (<0.05-4.0)
== END 2022-07-23 10:51 | disposition home or self-care (01) ==
LOC: HO.10HDL 10:50
PROVIDERS: Nurse Practitioner Family; Visit Provider Internal Medicine
DX: C61 Malignant neoplasm of prostate (principal); Z12.5 Encounter for screening for malignant neoplasm of prostate
CPT/HCPCS: 36415; 84153

== ENCOUNTER → 2022-08-05 09:55 | Outpatient (BNVA) | payer OTHER, SELFPAY | PROVIDERS: PCP Internal Medicine; Visit Provider Internal Medicine | DX: I48.20 Chronic atrial fibrillation, unspecified (principal); Z51.81 Encounter for therapeutic drug level monitoring; Z79.01 Long term (current) use of anticoagulants | CPT/HCPCS: 85610; 99211 ==

== ENCOUNTER → 2022-08-17 23:59 | Outpatient (BNV) | payer OTHER, SELFPAY ==
--- NOTE | 2022-08-18 11:18 | MHC.OFFVIS ---
Intake Intake Visit Reasons: Remote Device Check- [facility] Allergies No Known Allergies Allergy (Mild, Verified 08/05/22 10:14) NONE PFSH Medical History Cardiac pacemaker in situ Chronic atrial fibrillation HTN (hypertension) 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 Lumbar radiculopathy Obesity Obstructive sleep apnea Surgical History History of permanent cardiac pacemaker placement Family History Father Diabetes Cancer Mother Cancer Social History Advance Directives Date on File: 11/13/19 Office Procedures Cardiac Device Check Cardiac Device Check Details: Remote pacemaker report generated 08/17/2022. Pacemaker function is adequate [id number] Cardiac Device Interrogation, pacemaker Procedure code (CPT) selection complete Coding Level of Care Code Procedure Only Diagnoses CPT Codes Cardiac Device Check - Cardiac Device 12: [id number] Cardiac Device Interrogation, pacemaker ([id number])
== END ==
PROVIDERS: PCP Internal Medicine; Visit Provider Internal Medicine Cardiovascular Disease
DX: I48.20 Chronic atrial fibrillation, unspecified (principal); Z95.0 Presence of cardiac pacemaker
CPT/HCPCS: 93294

== ENCOUNTER → 2022-08-19 07:36 | Outpatient (REF) | payer OTHER, SELFPAY ==
--- NOTE | 2022-08-19 07:40 | CA_ITS ---
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 Normal LV ejection fraction with LVEF of 55-60% with moderate LVH 2. Severe left atrial enlargement 3. Mildly elevated right ventricular systolic pressure and right atrial pressures 4. Mildly dilated ascending aorta at 3.9 cm 5. No gross pericardial effusion Findings Left Ventricle Normal left ventricular size and systolic function. There is moderately increased left ventricular wall thickness. The visually estimated ejection fraction is between 55-60%. There is paradoxical septal motion consistent with a right ventricular pacemaker. Diastolic function is indeterminate on the basis of available data. Peak GLS is -9.2%, which is severely reduced. Right Ventricle Normal right ventricular cavity size. There is mild to moderately decreased right ventricular systolic function. There is a pacemaker wire seen in the right ventricle. Atria The left atrium is severely dilated. The right atrium was not well visualized. Aortic Valve There is mild calcification of the aortic valve. There is no aortic valve stenosis. There is no aortic valve regurgitation. Mitral Valve There is mild anterior and posterior mitral leaflet thickening. There is mild mitral valve regurgitation. There is no mitral valve stenosis. Pulmonic Valve The pulmonic valve was not well visualized. Tricuspid Valve There is mild tricuspid valve regurgitation. Mildly elevated right atrial pressure. Mild pulmonary hypertension is present. Great Vessels The pulmonary artery was not well visualized. There is mild dilatation of the ascending aorta measuring 3.90 cm. Venous The inferior vena cava is mildly dilated and collapses less than 50% with inspiration. Pericardium/Pleural There is no evidence of pericardial effusion. Prior Study Comparison Changes noted compared to prior study dated: 01/23/2021. RV systolic pressure is mildly increased Measurements 2D Linear Measurements IVSd: 1.48 0.6-0.9/0.6-1.0 cm LVIDd: 5.18 3.9-5.3/4.2-5.9 cm LVIDd Index: 2.37 2.4-3.2/2.2-3.1 cm/m2 LVIDs: 3.64 2.0-3.6 cm LVPWd: 1.53 0.7-1.1 cm Ao Root: 3.70 2.1-3.5 cm LA Diam: 5.40 2.7-3.8/3.0-4.0 cm LAIDs Index: 2.47 1.5-2.3 cm/m2 LV Mass: 426.78 67-162/88-224 g LV Mass Index: 194.87 43-95/49-115 g/m2 LVOT Diam: 2.30 3.0+(-)1.3 cm 2D Systolic Function EF 4C: 58.20 >55% EF 2C: 55.00 >55% EF BiP: 57.00 >55% Mitral Valve MV Pk E: 0.68 MV Decel Time: 312.00 E'Lateral: 15.90 E'Medial: 4.88 E/E' Med: 14.00 E/E' Lat: 4.30 PHT: 91.00 MVA PHT: 2.42 Decel Bradley: 2.18 Aortic Valve AoV Pk Ruben: 1.21 AoV Pk Grad: 6.00 ALEYDA: 3.07 LVOT LVOT Pk Ruben: 0.89 LVOT Mn Ruben: 0.61 LVOT VTI: 0.16 LVOT Pk Grad: 3.00 LVOT Mn Grad: 2.00 LVOT Diam: 2.30 LVOT Area: 4.15 Diastolic Function MV Pk E: 0.68 E'Medial: 4.88 E/E' Med: 14.00 E' Laterial: 15.90 E/E' Lat: 4.30 Right Ventricle TAPSE (mm): 13.40 TVS' Ruben: 6.20 Tricuspid Valve TR Pk Ruben: 2.99 TR Pk Grad: 36.00 RA Press: 8.00 RVSP: 44.00 Great Vessels Aorta Ao Root-2D: 3.70 2.0-3.7 cm Ao Asc: 3.90 2.1-3.4 cm Updated in Other Vendor System with Status of Final Nish Devine MD electronically signed on 08/20/2022 4:30:54 PM with status of Final
== END ==
LOC: HO.CARD 07:36
PROVIDERS: PCP Internal Medicine; Visit Provider Internal Medicine Cardiovascular Disease
DX: I11.0 Hypertensive heart disease with heart failure (principal)
CPT/HCPCS: 93306; 93356

== ENCOUNTER → 2022-08-19 07:40 | Outpatient (BNV) | payer OTHER, SELFPAY | PROVIDERS: PCP Internal Medicine; Visit Provider Internal Medicine Cardiovascular Disease | DX: I34.0 Nonrheumatic mitral (valve) insufficiency (principal) | CPT/HCPCS: 93306 ==

== ENCOUNTER 2022-09-02 09:48 | Outpatient (AMB) | payer OTHER, SELFPAY ==
[2022-09-02 10:11] LABS: Prothrombin Time Whole Bld POC 43.3 sec (11.1-13.5); ~PT, ~INR - Anti Coag Clinic 3.6 (0.9-1.1)
--- NOTE | 2022-09-02 10:18 | MHC.OFFVISCO ---
Intake Intake Visit Reasons: Anticoagulation Allergies No Known Allergies Allergy (Mild, Verified 09/02/22 10:05) NONE Medication List - Last Reconciled 09/02/22 by Eileen Mcdonald RN amlodipine 10 mg PO BID baclofen 10 mg PO TID 30 days doxazosin 1 mg PO BID fenofibrate 54 mg PO DAILY furosemide 40 mg PO BID lisinopril 40 mg PO ONCE metoprolol succinate ER 50 mg PO DAILY simvastatin 20 mg PO DAILY timolol maleate 0.5% 1 drp ophthalmic (eye) DAILY warfarin 2.5 mg See Protocol PO DAILY Nursing Note PT.HAS HAD A LARGE AMT.OF STRAWBERRIES RECENTLY. NO NCP,SOB,DIET/MED CHANGES,FALLS OR SX OF BLEEDING. HOLD WARFARIN TODAY THEN RESUME 1.25MGM DAILY AND FOLLOW-UP IN 5 WEEKS(PT.REQUEST) GOOD UNDERSTANDING OF DOSING INSTR. 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
== END 2022-09-02 10:22 | disposition home or self-care (01) ==
LOC: HO.ACS 09:48
PROVIDERS: PCP Internal Medicine; Visit Provider Internal Medicine
DX: Z79.01 Long term (current) use of anticoagulants (principal)

== ENCOUNTER → 2022-09-02 09:48 | Outpatient (BNVA) | payer OTHER, SELFPAY | PROVIDERS: PCP Internal Medicine; Visit Provider Internal Medicine | DX: Z51.81 Encounter for therapeutic drug level monitoring (principal); Z79.01 Long term (current) use of anticoagulants; I48.20 Chronic atrial fibrillation, unspecified | CPT/HCPCS: 85610; 99211 ==

== ENCOUNTER 2022-09-15 10:15 | Outpatient (AMB) | payer OTHER, SELFPAY ==
[2022-09-15 10:16] VITALS: BP 130/80; PULSE 60; BMI 31.3
--- NOTE | 2022-09-15 10:16 | A.OFFVIS_ITS ---
Intake Vital Signs 09/15/22 10:16 Height 5 ft 10 in Weight 218 lb 4.122 oz BMI 31.3 BP 130/80 Blood Pressure Location Lt brachial Position Sitting Pulse 60 Intake Visit Reasons: follow-up after echo Intake Note: Follow-up after echo and [facility] check feeling good Alliance Consultant: Alliance Consultant Present Accompanied by: Spouse Allergies No Known Allergies Allergy (Mild, Verified 09/02/22 10:05) NONE Medication List - Last Reconciled 09/15/22 by Nish Devine MD amlodipine 10 mg PO BID baclofen 10 mg PO TID 30 days doxazosin 1 mg PO BID fenofibrate 54 mg PO DAILY furosemide 40 mg PO BID lisinopril 40 mg PO ONCE metoprolol succinate ER 50 mg PO DAILY simvastatin 20 mg PO DAILY timolol maleate 0.5% 1 drp ophthalmic (eye) DAILY warfarin 2.5 mg See Protocol PO DAILY HPI HPI Comments History of Present Illness Details Sumit comes for follow-up. Overall he has been doing well from cardiac perspective. He denies any new symptoms. Denies any orthopnea, PND, leg edema. Takes current diuretic therapy. His echocardiogram shows persistent moderate LV wall thickness despite good control blood pressure many years. He denies any prolonged palpitation irregular heartbeat. No lightheadedness, syncope. Uses CPAP every day. Uses warfarin for anticoagulation being [facility]. They want to transition to direct oral anticoagulant therapy. 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 Lumbar radiculopathy Obesity Obstructive sleep apnea Surgical History History of permanent cardiac pacemaker placement Family History Father Diabetes Cancer Mother Cancer Social History Advance Directives Date on File: 11/13/19 Review of Systems Const Denies chills, Denies fatigue, Denies fever(s), Denies frequent falls, Denies weakness, Denies weight gain and Denies weight loss ENT Denies dizziness Card Denies chest pain, Denies leg edema, Denies lightheadedness, Denies palpitations, Denies dyspnea, Denies dyspnea on exertion, Denies orthopnea and Denies other (loss of consciousness) Resp Denies cough, Denies dyspnea and Denies dyspnea on exertion GI Denies hematochezia and Denies change in stool character Musc Denies abnormal gait, Denies muscle weakness, Denies numbness, Denies radiating pain into limb and Denies tingling Neuro Denies abnormal gait, Denies dizziness, Denies frequent falls, Denies numbness, Denies tingling and Denies weakness Endo Denies fatigue and Denies palpitations Physical Exam Vital Signs: Last Vital Signs Pulse 60 09/15/22 10:16 BP 130/80 09/15/22 10:16 BMI result Body Mass Index 31.3 Const General: cooperative, comfortable, no acute distress, alert and awake Nutritional Appearance: obese Orientation/consciousness: patient oriented x3 Limitations: no limitations Neck Neck: Yes trachea midline, Yes supple and Yes no JVD Resp Effort & Inspection: normal respiratory effort Auscultation: wheezes throughout (Right posterior) and diminished lung sounds Cardio Jugular venous distension: no JVD Rate: regular rate Rhythm: regular rhythm Heart sounds: S1 normal heart sound present and S2 normal heart sound present GI Auscultation: normal bowel sounds Skin General skin exam: no rashes or lesions noted and ecchymosis Neuro General: patient oriented x3 and no focal motor deficits Extrem General: Yes no clubbing, cyanosis or edema Psych Appearance: grossly normal Office Procedures Cardiac Device Check Cardiac Device Check Details: Single-chamber [place] pacemaker in place. Programmed in VVIR at 60 beats per minute. Ventricular pacing greater than 95% of time. Ventricular pacing thresholds slightly elevated. Adequate safety margins. Ventricular sensing is adequate. Pacing lead impedance is stable. Battery life is adequate. [id number] Cardiac Device Check, leadless/single lead pacemaker Procedure code (CPT) selection complete Assessment & Plan Assessment & Plan (1) Chronic atrial fibrillation: Code(s): I48.20 - Chronic atrial fibrillation, unspecified Plan: Chronic rate control atrial fibrillation. Has done well. Slow ventricular response in the past has responded well to pacing therapy. Currently on warfarin therapy for anticoagulation. However they you want to switch to direct oral anticoagulation therapy. Risks and benefits were discussed. They understand agree. They will call me when they are closer to running out of warfarin therapy when they would switch. (2) Cardiac pacemaker in situ: Comment: single-chamber [place] pacemaker in place for bradycardia Code(s): Z95.0 - Presence of cardiac pacemaker Plan: Cardiac pacemaker in-situ, working well. Reprogrammed for adequate function. Follow-up remotely in 3 months and follow up in the clinic in 6 months time. (3) Hypertensive heart disease with heart failure: Code(s): I11.0 - Hypertensive heart disease with heart failure Plan: Patient with persistent moderate LVH despite good control blood pressure as well as CPAP treatment. Has had no hospitalization related to heart failure. Given his age and his underlying left ventricle hypertrophy chronic atrial fibrillation need to rule out amyloidosis. Have suggest him to undergo serum and urine test for light chain as well as a PYP scan to rule out ATTR type of amyloidosis. This was discussed with him. Continue aggressive blood pressure control which is currently well optimized advised to monitor blood pressure at home maintain a log. Daily weight monitoring avoidance of salt loading was discussed. Continue CPAP therapy. Follow up in the clinic in 6 months time, sooner p.r.n.. Thank you for allowing me to partake in his care Orders: Orders Basic Metabolic Panel Today I48.20 - Chronic atrial fibrillation, unspecified [place]/Lambda Light Chain Serum Today I48.20 - Chronic atrial fibrillation, unspecified Protein Electrophoresis, Serum Today I48.20 - Chronic atrial fibrillation, unspecified Protein Electrophoresis,Ran Ur Today I48.20 - Chronic atrial fibrillation, unspecified NM TC PYP cardiac amyloidosis Today I48.20 - Chronic atrial fibrillation, unspecified, I50.30 - Unspecified diastolic (congestive) heart failure Coding Level of Care Code Est Pt Level 4 (55417) Diagnoses Chronic atrial fibrillation I48.20 Cardiac pacemaker in situ Z95.0 Hypertensive heart disease with heart failure I11.0 CPT Codes Cardiac Device Check - Cardiac Device 1: [id number] Cardiac Device Check, leadless/single lead pacemaker ([id number])
== END 2022-09-15 10:37 | disposition home or self-care (01) ==
PROVIDERS: PCP Internal Medicine; Referring Provider Internal Medicine; Visit Provider Internal Medicine Cardiovascular Disease
DX: I48.20 Chronic atrial fibrillation, unspecified (principal); Z95.0 Presence of cardiac pacemaker; I11.0 Hypertensive heart disease with heart failure
CPT/HCPCS: 93279; 99214

== ENCOUNTER → 2022-09-15 10:15 | Outpatient (BNVA) | payer OTHER, SELFPAY | PROVIDERS: PCP Internal Medicine; Referring Provider Internal Medicine; Visit Provider Internal Medicine Cardiovascular Disease ==

== ENCOUNTER 2022-09-17 09:26 | Outpatient (REF) | payer OTHER, SELFPAY ==
[2022-09-17 11:09] LABS: Anion Gap 13 (12-20); Blood Urea Nitrogen 16 mg/dL (9-16); Carbon Dioxide 24 mmol/L (22-29); Chloride 108 mmol/L (96-108); Estimated Glomerular Filt Rate 57; Glucose Random 139 mg/dL (60-115); Potassium 3.7 mmol/L (3.3-5.1); Sodium 141 mmol/L (135-145)
[2022-09-18 19:38] LABS: Calcium (PTHI) 10.7 mg/dL (8.6-10.3); PTHI 113 pg/mL (16-77)
[2022-09-21 13:33] LABS: Prot Elec - Albumin 4.4 g/dL (3.8-4.8); Prot Elec - Alpha1 0.3 g/dL (0.2-0.3); Prot Elec - Alpha2 0.8 g/dL (0.5-0.9); Prot Elec - Beta 1 0.5 g/dL (0.4-0.6); Prot Elec - Beta 2 0.4 g/dL (0.2-0.5); Prot Elec - Gamma 0.9 g/dL (0.8-1.7); Prot Elec - Total Protein 7.2 g/dL (6.1-8.1)
[2022-09-21 15:13] LABS: PEU-Protein Creat Ratio Rand 0.244 (0.025-0.148); PEU-Rand. Prot/Creat Ratio 244 mg/g creat (25-148); PEU-Random Ur. Gamma Globulin 6 %; PEU-Random Urine A1 Globulin 5 %; PEU-Random Urine A2 Globulin 7 %; PEU-Random Urine Albumin 70 %; PEU-Random Urine Beta Globulin 12 %; PEU-Random Urine Creatinine 45 mg/dL (20-320); PEU-Random Urine Protein 11 mg/dL (5-25)
[2022-09-23 16:13] LABS: Kappa, Serum 197 mg/dL (176-443); Kappa/Lambda Ratio, Serum 1.55 (1.29-2.55); Lambda, Serum 127 mg/dL (91-240)
== END 2022-09-17 09:27 | disposition home or self-care (01) ==
LOC: HO.10HDL 09:26
PROVIDERS: PCP Internal Medicine; Visit Provider Internal Medicine Cardiovascular Disease
DX: I48.20 Chronic atrial fibrillation, unspecified (principal); N18.9 Chronic kidney disease, unspecified; E83.52 Hypercalcemia
CPT/HCPCS: 36415; 80048; 82570; 83883; 83970; 84156; 84165; 84166

== ENCOUNTER 2022-10-07 09:50 | Outpatient (AMB) | payer OTHER, SELFPAY ==
[2022-10-07 10:11] LABS: Prothrombin Time Whole Bld POC 45.7 sec (11.1-13.5); ~PT, ~INR - Anti Coag Clinic 3.8 (0.9-1.1)
--- NOTE | 2022-10-07 10:14 | MHC.OFFVISCO ---
Intake Intake Visit Reasons: Anticoagulation Allergies No Known Allergies Allergy (Mild, Verified 10/07/22 10:06) NONE Medication List - Last Reconciled 10/07/22 by Eileen Mcdonald RN amlodipine 10 mg PO BID baclofen 10 mg PO TID 30 days doxazosin 1 mg PO BID fenofibrate 54 mg PO DAILY furosemide 40 mg PO BID lisinopril 40 mg PO ONCE metoprolol succinate ER 50 mg PO DAILY simvastatin 20 mg PO DAILY timolol maleate 0.5% 1 drp ophthalmic (eye) DAILY warfarin 2.5 mg See Protocol PO DAILY Nursing Note NO CP,SOB,DIET/MED CHANGES,FALLS OR SX OF BLEEDING.\ HOLD WARFARIN TODAY THEN RESUME USUAL DOSE AND FOLLOW-UPIN 4 WEEKS. GOOD UNDERSTANDING OF DOSING INSTR. 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
== END 2022-10-07 10:17 | disposition home or self-care (01) ==
LOC: HO.ACS 09:50
PROVIDERS: PCP Internal Medicine; Visit Provider Internal Medicine
DX: Z79.01 Long term (current) use of anticoagulants (principal)

== ENCOUNTER → 2022-10-07 09:50 | Outpatient (BNVA) | payer OTHER, SELFPAY | PROVIDERS: PCP Internal Medicine; Visit Provider Internal Medicine | DX: I48.20 Chronic atrial fibrillation, unspecified (principal); Z51.81 Encounter for therapeutic drug level monitoring; Z79.01 Long term (current) use of anticoagulants | CPT/HCPCS: 85610; 99211 ==

== ENCOUNTER → 2022-10-14 09:46 | Outpatient (REF) | payer OTHER, SELFPAY ==
--- NOTE | ~2022-10-14 | NM_ITS ---
EXAMINATION: TC-PYP CARDIAC STUDY CLINICAL INFORMATION: Evaluation for cardiac amyloidosis. 82 years old Male with heart failure COMPARISON None available. TECHNIQUE: 25 mCi of Tc-99m pyrophosphate was injected intravenously. Planar images of the chest were obtained in the anterior and left lateral views at 3 hours. SPECT-CT images of the chest were also obtained. Total DLP 115 mGy-cm. FINDINGS: 1. Image Quality: 2. Semi-quantitative visual scoring of the cardiac uptake is performed as follows: 2 = moderate cardia uptake = bone uptake 3. H-CL Ratio if Applicable: 1.08 4. Ancillary Finds: 8 changes noted in the ascending as well as arch of the aorta as well as descending le thoracic aorta. Also calcification noted coronary tree. The reflecti;changes in the right ventricle is consistent with pacemaker leads NM/NM TC PYP cardiac amyloidosis IMPRESSION: 1. 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 Please note that the Tc-99m PYP is more sensitive in detecting transthyretin-related cardiac amyloidosis than that of light-chain cardiac amyloidosis.
== END ==
LOC: HO.NUCMED 09:46
PROVIDERS: Visit Provider Internal Medicine Cardiovascular Disease
DX: I50.30 Unspecified diastolic (congestive) heart failure (principal); I48.20 Chronic atrial fibrillation, unspecified
CPT/HCPCS: 78803; A9538

== ENCOUNTER → 2022-10-14 09:48 | Outpatient (BNV) | payer OTHER, SELFPAY | PROVIDERS: Visit Provider Internal Medicine Cardiovascular Disease | DX: I50.30 Unspecified diastolic (congestive) heart failure (principal) | CPT/HCPCS: 78803 ==

== ENCOUNTER 2022-11-04 09:51 | Outpatient (AMB) | payer OTHER, SELFPAY ==
--- NOTE | 2022-11-04 09:57 | MHC.OFFVISCO ---
Intake Intake Visit Reasons: Anticoagulation Allergies No Known Allergies Allergy (Mild, Verified 11/04/22 09:52) NONE Medication List - Last Reconciled 11/04/22 by Larisa Freeman RN amlodipine 10 mg PO BID baclofen 10 mg PO TID 30 days doxazosin 1 mg PO BID fenofibrate 54 mg PO DAILY furosemide 40 mg PO BID lisinopril 40 mg PO ONCE metoprolol succinate ER 50 mg PO DAILY simvastatin 20 mg PO DAILY timolol maleate 0.5% 1 drp ophthalmic (eye) DAILY warfarin 2.5 mg See Protocol PO DAILY Nursing Note INR 4.2- out of therapeutic range Medications and supplements reviewed Patient status: no c.o, unsure why inr trending elev- denies tylenol usage, changes in medications, increased etoh or increased stress Medications or supplements: no changes Diet: same Denies any signs and symptoms of bleeding or clotting or unusual bruising Bleeding, bruising, clotting discussed Nutritional guidance given: eat dark greens for 2 days, no reds for 2 days Dose: hold dose today and reduce weekly dosing- 1.25mg x 6, hold on mondays F/U INR Date : pt ref earlier appt than 2 weeks?? Patient verbalizing understanding of instructions given. Coding Level of Care Code Est Patient Level 1 Diagnoses Current use of anticoagulant therapy Z79.01 Assessment & Plan Assessment & Plan (1) Current use of anticoagulant therapy: Code(s): Z79.01 - detention (current) use of anticoagulants Category: Medical
[2022-11-04 09:58] LABS: ~PT, ~INR - Anti Coag Clinic 4.2 (0.9-1.1)
== END 2022-11-04 10:12 | disposition home or self-care (01) ==
LOC: HO.ACS 09:51
PROVIDERS: PCP Internal Medicine; Visit Provider Internal Medicine
DX: Z79.01 Long term (current) use of anticoagulants (principal)

== ENCOUNTER → 2022-11-04 09:51 | Outpatient (BNVA) | payer OTHER, SELFPAY | PROVIDERS: PCP Internal Medicine; Visit Provider Internal Medicine | DX: I48.20 Chronic atrial fibrillation, unspecified (principal); Z51.81 Encounter for therapeutic drug level monitoring; Z79.01 Long term (current) use of anticoagulants | CPT/HCPCS: 85610; 99211 ==

== ENCOUNTER → 2022-11-20 23:59 | Outpatient (BNV) | payer OTHER, SELFPAY ==
--- NOTE | 2022-11-30 08:30 | MHC.OFFVIS ---
Intake Intake Visit Reasons: Remote Device Check- 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 Pacemaker function is adequate. [id number] Cardiac Device Interrogation, pacemaker Procedure code (CPT) selection complete Coding Level of Care Code Procedure Only CPT Codes Cardiac Device Check - Cardiac Device 12: [id number] Cardiac Device Interrogation, pacemaker ([id number])
== END ==
PROVIDERS: PCP Internal Medicine; Visit Provider Internal Medicine Cardiovascular Disease
DX: I48.20 Chronic atrial fibrillation, unspecified (principal); Z95.0 Presence of cardiac pacemaker
CPT/HCPCS: 93294

== ENCOUNTER 2022-12-03 10:10 | Outpatient (AMB) | payer OTHER, SELFPAY ==
[2022-12-03 10:29] LABS: Prothrombin Time Whole Bld POC 23.2 sec (11.1-13.5); ~PT, ~INR - Anti Coag Clinic 1.9 (0.9-1.1)
--- NOTE | 2022-12-03 10:34 | MHC.OFFVISCO ---
Intake Intake Visit Reasons: Anticoagulation Allergies No Known Allergies Allergy (Mild, Verified 12/03/22 10:23) NONE Medication List - Last Reconciled 12/03/22 by Dayna Rice RN amlodipine 10 mg PO BID baclofen 10 mg PO TID 30 days doxazosin 1 mg PO BID fenofibrate 54 mg PO DAILY furosemide 40 mg PO BID lisinopril 40 mg PO ONCE metoprolol succinate ER 50 mg PO DAILY simvastatin 20 mg PO DAILY timolol maleate 0.5% 1 drp ophthalmic (eye) DAILY warfarin 2.5 mg See Protocol PO DAILY Nursing Note INR 1.9 out of therapeutic range Medications and supplements reviewed Patient status: well, he stated his iNR values were higher during the late summer due to the [place] tomatoes, gave warfarin food photos and food list for the season changes Medications or supplements: no changesd Diet: good Denies any signs and symptoms of bleeding or clotting or unusual bruising Bleeding, bruising, clotting discussed Nutritional guidance given: avoid greens x 2 days then eat a mix of fruits and vegetables Dose: resume 1.25mg daily F/U INR Date : 3 weeks ?? Patient verbalizing understanding of instructions given. 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
== END 2022-12-03 10:38 | disposition home or self-care (01) ==
LOC: HO.ACS 10:10
PROVIDERS: PCP Internal Medicine; Visit Provider Internal Medicine
DX: Z79.01 Long term (current) use of anticoagulants (principal)

== ENCOUNTER → 2022-12-03 10:10 | Outpatient (BNVA) | payer OTHER, SELFPAY | PROVIDERS: PCP Internal Medicine; Visit Provider Internal Medicine | DX: I48.20 Chronic atrial fibrillation, unspecified (principal); Z51.81 Encounter for therapeutic drug level monitoring; Z79.01 Long term (current) use of anticoagulants | CPT/HCPCS: 85610; 99211 ==

== ENCOUNTER 2022-12-09 11:07 | Outpatient (REF) | payer OTHER, SELFPAY ==
[2022-12-09 13:15] LABS: MANUAL DIFF FLAG NO
[2022-12-09 13:19] LABS: Basophils Absolute Auto 0.1 X10*3/uL (0.0-0.2); Basophils Percent Auto 0.8 % (0-2); Eosinophils Absolute Auto 0.3 X10*3/uL (0.0-0.4); Eosinophils Percent Auto 3.4 % (0-4); Hematocrit 45.1 % (42.0-52.0); Hemoglobin 15.3 g/dl (14.0-18.0); Imm Gran Abs Auto 0.03 X10*3/uL (0.00-0.03); Imm Gran Pct Auto 0.4 % (0.0-0.4); Lymphocytes Absolute Auto 1.1 X10*3/uL (1.2-4.9); Lymphocytes Percent Auto 13.9 % (20-40); Mean Corpuscular HGB Conc 33.9 g/dl (31.0-36.0); Mean Corpuscular Hemoglobin 31.8 pg (27.0-33.0); Mean Corpuscular Volume 93.8 fL (80.0-98.0); Mean Platelet Volume 10.6 fL (9.4-12.4); Monocytes Absolute Auto 0.7 X10*3/uL (0.1-1.2); Monocytes Percent Auto 9.1 % (2-11); Neutrophils Absolute Auto 5.8 x10*3/uL (2.0-8.3); Neutrophils Percent Auto 72.4 % (45-73); Platelet Count 187 X10*3/uL (160-400); Red Blood Count 4.81 X10*6/uL (4.60-5.80)
[2022-12-09 13:29] LABS: INTERNATIONAL NORM RATIO 2.1 (0.9-1.1); Prothrombin Time 25.2 SEC (11.1-13.3)
[2022-12-09 13:32] LABS: Partial Thromboplastin Time 37.9 SEC (26.0-36.4)
[2022-12-09 13:33] LABS: Alanine Aminotransferase 22 U/L (0-40); Albumin Level 4.5 g/dL (3.5-5.0); Alkaline Phosphatase 64 U/L (39-117); Anion Gap 14 (12-20); Aspartate Amino Transferase 22 U/L (5-37); Bilirubin Total 0.8 mg/dL (0.0-1.0); Blood Urea Nitrogen 15 mg/dL (9-16); Calcium 11.2 mg/dL (8.4-10.2); Carbon Dioxide 26 mmol/L (22-29); Chloride 106 mmol/L (96-108); Estimated Glomerular Filt Rate > 60; Glucose Random 150 mg/dL (60-115); Potassium 3.7 mmol/L (3.3-5.1); Sodium 142 mmol/L (135-145); Total Protein 7.6 g/dL (6.5-8.0)
[2022-12-09 13:34] LABS: Estimated Average Glucose 126 mg/dL
== END 2022-12-09 11:08 | disposition home or self-care (01) ==
LOC: HO.10HDL 11:07
PROVIDERS: Visit Provider Internal Medicine
DX: I48.91 Unspecified atrial fibrillation (principal); R73.03 Prediabetes; I12.9 Hypertensive chronic kidney disease with stage 1 through stage 4 chronic kidney disease, or unspecified chronic kidney disease; N18.9 Chronic kidney disease, unspecified
CPT/HCPCS: 36415; 80053; 83036; 85025; 85610; 85730

== ENCOUNTER 2022-12-15 11:21 | Outpatient (REF) | payer OTHER, SELFPAY ==
[2022-12-16 18:13] LABS: Calcium (PTHI) 11.3 mg/dL (8.6-10.3); PTHI 80 pg/mL (16-77)
== END 2022-12-15 11:22 | disposition home or self-care (01) ==
LOC: HO.10HDL 11:21
PROVIDERS: Visit Provider Internal Medicine
DX: E83.52 Hypercalcemia (principal)
CPT/HCPCS: 36415; 83970

== ENCOUNTER 2022-12-24 10:11 | Outpatient (AMB) | payer OTHER, SELFPAY ==
--- NOTE | 2022-12-24 10:24 | MHC.OFFVISCO ---
Intake Intake Visit Reasons: Anticoagulation Allergies No Known Allergies Allergy (Mild, Verified 12/24/22 10:20) NONE Medication List - Last Reconciled 12/24/22 by Larisa Freeman RN amlodipine 10 mg PO BID baclofen 10 mg PO TID 30 days doxazosin 1 mg PO BID fenofibrate 54 mg PO DAILY furosemide 40 mg PO BID lisinopril 40 mg PO ONCE metoprolol succinate ER 50 mg PO DAILY simvastatin 20 mg PO DAILY timolol maleate 0.5% 1 drp ophthalmic (eye) DAILY warfarin 2.5 mg See Protocol PO DAILY Nursing Note INR: 2.0- in therapeutic range of 2-3 Medications and supplements reviewed No changes in health, diet, medications, or supplements, Denies any signs and symptoms of bleeding or bruising or clotting. Bleeding, bruising, clotting discussed Nutritional guidance given- no greens for 2 days, will eat red today Dose: 1.25mg x 7 F/U INR: pt ref earlier appt than 5 weeks Patient verbalizes understanding of instructions given Coding Level of Care Code Est Patient Level 1 Diagnoses Current use of anticoagulant therapy Z79.01 Results AMB INR Fingerstick AMB INR Fingerstick 2.0 Last Edit by Larisa Freeman RN on 12/24/22 10:25 Assessment & Plan Assessment & Plan (1) Current use of anticoagulant therapy: Code(s): Z79.01 - FPC (current) use of anticoagulants Category: Medical
[2022-12-24 13:35] LABS: Prothrombin Time Whole Bld POC 24.4 sec (11.1-13.5)
== END 2022-12-24 10:35 | disposition home or self-care (01) ==
LOC: HO.ACS 10:11
PROVIDERS: PCP Internal Medicine; Visit Provider Internal Medicine
DX: Z79.01 Long term (current) use of anticoagulants (principal)

== ENCOUNTER → 2022-12-24 10:11 | Outpatient (BNVA) | payer OTHER, SELFPAY | PROVIDERS: PCP Internal Medicine; Visit Provider Internal Medicine | DX: I48.20 Chronic atrial fibrillation, unspecified (principal); Z51.81 Encounter for therapeutic drug level monitoring; Z79.01 Long term (current) use of anticoagulants | CPT/HCPCS: 85610; 99211 ==

== ENCOUNTER 2023-01-27 09:46 | Outpatient (AMB) | payer OTHER, SELFPAY ==
--- NOTE | 2023-01-27 10:00 | MHC.OFFVISCO ---
Intake Intake Visit Reasons: Anticoagulation Allergies No Known Allergies Allergy (Mild, Verified 01/27/23 09:54) NONE Medication List - Last Reconciled 01/27/23 by Larisa Freeman RN amlodipine 10 mg PO BID baclofen 10 mg PO TID 30 days doxazosin 1 mg PO BID fenofibrate 54 mg PO DAILY furosemide 40 mg PO BID lisinopril 40 mg PO ONCE metoprolol succinate ER 50 mg PO DAILY simvastatin 20 mg PO DAILY timolol maleate 0.5% 1 drp ophthalmic (eye) DAILY warfarin 2.5 mg See Protocol PO DAILY Nursing Note INR: 2.3- in therapeutic range of 2-3 Medications and supplements reviewed- no changes No changes in health, diet, medications, or supplements, Denies any signs and symptoms of bleeding or bruising or clotting. 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
[2023-01-27 10:09] LABS: ~PT, ~INR - Anti Coag Clinic 2.3 (0.9-1.1)
== END 2023-01-27 10:05 | disposition home or self-care (01) ==
LOC: HO.ACS 09:46
PROVIDERS: PCP Internal Medicine; Visit Provider Internal Medicine
DX: Z79.01 Long term (current) use of anticoagulants (principal)

== ENCOUNTER → 2023-01-27 09:46 | Outpatient (BNVA) | payer OTHER, SELFPAY | PROVIDERS: PCP Internal Medicine; Visit Provider Internal Medicine | DX: I48.20 Chronic atrial fibrillation, unspecified (principal); Z51.81 Encounter for therapeutic drug level monitoring; Z79.01 Long term (current) use of anticoagulants | CPT/HCPCS: 85610; 99211 ==

== ENCOUNTER → 2023-02-15 23:59 | Outpatient (BNV) | payer OTHER, SELFPAY ==
--- NOTE | 2023-02-16 16:18 | MHC.OFFVIS ---
Intake Intake Visit Reasons: Remote Device Check- [facility] Allergies No Known Allergies Allergy (Mild, Verified 01/27/23 09:54) NONE PFSH Medical History Cardiac pacemaker in situ Chronic atrial fibrillation HTN (hypertension) 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 Lumbar radiculopathy Obesity Obstructive sleep apnea Surgical History History of permanent cardiac pacemaker placement Family History Father Diabetes Cancer Mother Cancer Social History Advance Directives Date on File: 11/13/19 Office Procedures Cardiac Device Check Cardiac Device Check Details: Remote pacemaker report generated 02/15/2023. Pacemaker function is adequate [id number] Cardiac Device Interrogation, pacemaker Procedure code (CPT) selection complete Assessment & Plan Assessment & Plan (1) Cardiac pacemaker in situ: Comment: single-chamber [place] pacemaker in place for bradycardia Code(s): Z95.0 - Presence of cardiac pacemaker Plan: See above Coding Level of Care Code Procedure Only Diagnoses Cardiac pacemaker in situ Z95.0 CPT Codes Cardiac Device Check - Cardiac Device 12: [id number] Cardiac Device Interrogation, pacemaker ([id number])
== END ==
PROVIDERS: PCP Internal Medicine; Visit Provider Internal Medicine Cardiovascular Disease
DX: I48.20 Chronic atrial fibrillation, unspecified (principal); Z95.0 Presence of cardiac pacemaker
CPT/HCPCS: 93294

== ENCOUNTER 2023-02-24 09:47 | Outpatient (AMB) | payer OTHER, SELFPAY ==
--- NOTE | 2023-02-24 10:12 | MHC.OFFVISCO ---
Intake Intake Visit Reasons: Anticoagulation Allergies No Known Allergies Allergy (Mild, Verified 02/24/23 09:59) NONE Medication List - Last Reconciled 02/24/23 by Larisa Freeman RN amlodipine 10 mg PO BID baclofen 10 mg PO TID 30 days doxazosin 1 mg PO BID fenofibrate 54 mg PO DAILY furosemide 40 mg PO BID lisinopril 40 mg PO ONCE metoprolol succinate ER 50 mg PO DAILY simvastatin 20 mg PO DAILY timolol maleate 0.5% 1 drp ophthalmic (eye) DAILY warfarin 2.5 mg See Protocol PO DAILY Nursing Note INR: 2.3- in therapeutic range of 2-3 Medications and supplements reviewed No changes in health, diet, medications, or supplements, Denies any signs and symptoms of bleeding or bruising or clotting. 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
[2023-02-24 10:13] LABS: Prothrombin Time Whole Bld POC 27.4 sec (11.1-13.5); ~PT, ~INR - Anti Coag Clinic 2.3 (0.9-1.1)
== END 2023-02-24 10:43 | disposition home or self-care (01) ==
LOC: HO.ACS 09:47
PROVIDERS: PCP Internal Medicine; Visit Provider Internal Medicine
DX: Z79.01 Long term (current) use of anticoagulants (principal)

== ENCOUNTER → 2023-02-24 09:47 | Outpatient (BNVA) | payer OTHER, SELFPAY | PROVIDERS: PCP Internal Medicine; Visit Provider Internal Medicine | DX: I48.20 Chronic atrial fibrillation, unspecified (principal); Z51.81 Encounter for therapeutic drug level monitoring; Z79.01 Long term (current) use of anticoagulants | CPT/HCPCS: 85610; 99211 ==

== ENCOUNTER 2023-03-31 09:45 | Outpatient (AMB) | payer OTHER, SELFPAY ==
[2023-03-31 10:00] LABS: Prothrombin Time Whole Bld POC 31.9 sec (11.1-13.5); ~PT, ~INR - Anti Coag Clinic 2.7 (0.9-1.1)
--- NOTE | 2023-03-31 10:06 | MHC.OFFVISCO ---
Intake Intake Visit Reasons: Anticoagulation Allergies No Known Allergies Allergy (Mild, Verified 03/31/23 10:01) NONE Medication List - Last Reconciled 03/31/23 by Eileen Mcdonald RN amlodipine 10 mg PO BID baclofen 10 mg PO TID 30 days doxazosin 1 mg PO BID fenofibrate 54 mg PO DAILY furosemide 40 mg PO BID lisinopril 40 mg PO ONCE metoprolol succinate ER 50 mg PO DAILY simvastatin 20 mg PO DAILY timolol maleate 0.5% 1 drp ophthalmic (eye) DAILY warfarin 2.5 mg See Protocol PO DAILY Nursing Note NO CP,SOB,DIET/MED CHANGES,FALLS OR SX OF BLEEDING. CONTINUE 1.25MGM DAILY AND FOLLOW-UP IN 5 WEEKS. GOOD UNDERSTANDING OF DOSING INSTR. 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
== END 2023-03-31 10:08 | disposition home or self-care (01) ==
LOC: HO.ACS 09:45
PROVIDERS: PCP Internal Medicine; Visit Provider Internal Medicine
DX: Z79.01 Long term (current) use of anticoagulants (principal)

== ENCOUNTER → 2023-03-31 09:45 | Outpatient (BNVA) | payer OTHER, SELFPAY | PROVIDERS: PCP Internal Medicine; Visit Provider Internal Medicine | DX: I48.20 Chronic atrial fibrillation, unspecified (principal); Z51.81 Encounter for therapeutic drug level monitoring; Z79.01 Long term (current) use of anticoagulants | CPT/HCPCS: 85610; 99211 ==

== ENCOUNTER 2023-04-05 08:55 | Outpatient (REF) | payer OTHER, SELFPAY ==
[2023-04-05 09:18] LABS: MANUAL DIFF FLAG NO
[2023-04-05 09:50] LABS: Basophils Absolute Auto 0.1 X10*3/uL (0.0-0.2); Basophils Percent Auto 0.9 % (0-2); Eosinophils Absolute Auto 0.2 X10*3/uL (0.0-0.4); Eosinophils Percent Auto 3.3 % (0-4); Hematocrit 44.9 % (42.0-52.0); Hemoglobin 15.5 g/dl (14.0-18.0); Imm Gran Abs Auto 0.03 X10*3/uL (0.00-0.03); Imm Gran Pct Auto 0.4 % (0.0-0.4); Lymphocytes Absolute Auto 1.1 X10*3/uL (1.2-4.9); Lymphocytes Percent Auto 15.4 % (20-40); Mean Corpuscular HGB Conc 34.5 g/dl (31.0-36.0); Mean Corpuscular Volume 95.7 fL (80.0-98.0); Mean Platelet Volume 10.6 fL (9.4-12.4); Monocytes Absolute Auto 0.5 X10*3/uL (0.1-1.2); Monocytes Percent Auto 6.9 % (2-11); Neutrophils Absolute Auto 5.1 x10*3/uL (2.0-8.3); Neutrophils Percent Auto 73.1 % (45-73); Platelet Count 155 X10*3/uL (160-400); Red Blood Count 4.69 X10*6/uL (4.60-5.80); Red Cell Distribution Width 13.9 % (11.0-16.0)
[2023-04-05 10:49] LABS: Alanine Aminotransferase 19 U/L (0-40); Albumin Level 4.4 g/dL (3.5-5.0); Alkaline Phosphatase 57 U/L (39-117); Anion Gap 13 (12-20); Aspartate Amino Transferase 20 U/L (5-37); Bilirubin Total 0.7 mg/dL (0.0-1.0); Blood Urea Nitrogen 17 mg/dL (9-16); Calcium 10.7 mg/dL (8.4-10.2); Carbon Dioxide 23 mmol/L (22-29); Chloride 108 mmol/L (96-108); Estimated Glomerular Filt Rate 57; Glucose Random 161 mg/dL (60-115); Potassium 3.7 mmol/L (3.3-5.1); Sodium 140 mmol/L (135-145); Total Protein 7.1 g/dL (6.5-8.0)
== END 2023-04-05 08:56 | disposition home or self-care (01) ==
LOC: HO.LAB 08:55
PROVIDERS: PCP Internal Medicine; Visit Provider Internal Medicine
DX: I12.9 Hypertensive chronic kidney disease with stage 1 through stage 4 chronic kidney disease, or unspecified chronic kidney disease (principal); N18.9 Chronic kidney disease, unspecified; I48.91 Unspecified atrial fibrillation
CPT/HCPCS: 36415; 80053; 85025

== ENCOUNTER 2023-04-28 09:21 | Outpatient (AMB) | payer OTHER, SELFPAY ==
[2023-04-28 09:25] VITALS: BP 112/64; PULSE 60; BMI 31.6
--- NOTE | 2023-04-28 09:25 | A.OFFVIS_ITS ---
Intake Vital Signs 04/28/23 09:25 Height 5 ft 10 in Weight 220 lb 7.396 oz BMI 31.6 BP 112/64 Blood Pressure Location Lt brachial Position Sitting Pulse 60 Intake Visit Reasons: r/s 6 mos followup Intake Note: 6 month follow-up with ekg and [facility] check feeling good Allergies No Known Allergies Allergy (Mild, Verified 03/31/23 10:01) NONE Medication List - Last Reconciled 04/28/23 by Nish Devine MD amlodipine 10 mg PO BID dapagliflozin propanediol (Farxiga) 10 mg PO DAILY doxazosin 1 mg PO BID fenofibrate 54 mg PO DAILY furosemide 40 mg PO BID lisinopril 40 mg PO ONCE metoprolol succinate ER 50 mg PO DAILY simvastatin 20 mg PO DAILY spironolactone (Aldactone) 25 mg PO DAILY timolol maleate 0.5% 1 drp ophthalmic (eye) DAILY warfarin 2.5 mg See Protocol PO DAILY HPI HPI Comments History of Present Illness Details Sumit comes for follow-up. He presents here with his daughter. He has been doing well. No worsening heart failure symptoms. He denies any orthopnea, PND. Says he uses CPAP at nighttime and sleeps well. He had recently seen advanced heart failure Clinic at [facility] and for possible cardiac amyloidosis. However there is no clear conclusion on that. Patient was started on dapagliflozin as well as spironolactone therapy which is tolerating. His Lasix was reduced to 40 mg daily. He continues to have no symptoms and is NYHA class 1-2. Denies any fluid gain. Denies any prolonged palpitation irregular heartbeat. No lightheadedness, syncope. 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 HTN (hypertension) Obstructive sleep apnea Obesity Surgical History History of permanent cardiac pacemaker placement Family History Father Diabetes Cancer Mother Cancer Social History Advance Directives Date on File: 11/13/19 Review of Systems Const Denies chills, Denies fatigue, Denies fever(s), Denies frequent falls, Denies weakness, Denies weight gain and Denies weight loss ENT Denies dizziness Card Denies chest pain, Denies leg edema, Denies lightheadedness, Denies palpitations, Denies dyspnea, Denies dyspnea on exertion, Denies orthopnea and Denies other (loss of consciousness) Resp Denies cough, Denies dyspnea and Denies dyspnea on exertion GI Denies hematochezia and Denies change in stool character Musc Denies abnormal gait, Denies muscle weakness, Denies numbness, Denies radiating pain into limb and Denies tingling Neuro Denies abnormal gait, Denies dizziness, Denies frequent falls, Denies numbness, Denies tingling and Denies weakness Endo Denies fatigue and Denies palpitations Physical Exam Vital Signs: Last Vital Signs Pulse 60 04/28/23 09:25 BP 112/64 04/28/23 09:25 BMI result Body Mass Index 31.6 Const General: cooperative, comfortable, no acute distress, alert and awake Nutritional Appearance: obese Orientation/consciousness: patient oriented x3 Limitations: no limitations Neck Neck: Yes trachea midline, Yes supple and Yes no JVD Resp Effort & Inspection: normal respiratory effort Auscultation: wheezes throughout (Right posterior) and diminished lung sounds Cardio Jugular venous distension: no JVD Rate: regular rate Rhythm: regular rhythm Heart sounds: S1 normal heart sound present and S2 normal heart sound present GI Auscultation: normal bowel sounds Skin General skin exam: no rashes or lesions noted and ecchymosis Neuro General: patient oriented x3 and no focal motor deficits Extrem General: Yes no clubbing, cyanosis or edema Psych Appearance: grossly normal Office Procedures Cardiac Device Check Cardiac Device Check Details: Single-chamber [place] pacemaker in place. Programmed in VVI at 60 beats per minute. Pacing 100% of the time. Ventricular sensing is adequate. Ventricular capture thresholds adequate. Pacing lead impedance stable. Battery life is 3.4 years [id number] Cardiac Device Check, leadless/single lead pacemaker Procedure code (CPT) selection complete EKG Details: EKG shows V paced rhythm with underlying atrial fibrillation. 08524-[id number], Complete Assessment & Plan Assessment & Plan (1) (HFpEF) heart failure with preserved ejection fraction: Code(s): I50.30 - Unspecified diastolic (congestive) heart failure Plan: Heart failure with preserved ejection fraction most likely related hypertensive heart disease. Clinically euvolemic and well compensated with good functional status. Continue current therapy. Agree with current Lasix therapy at 40 mg daily. Daily weight monitoring avoidance of salt loading was discussed. Discussed with him about continuing dapagliflozin and spironolactone for neurohormonal modulation. Continue CPAP therapy. Continue aggressive control blood pressure which is currently well optimized. (2) Chronic atrial fibrillation: Code(s): I48.20 - Chronic atrial fibrillation, unspecified Plan: Chronic rate control atrial fibrillation. Continue full oral anticoagulation, currently on warfarin. Being monitored by [facility]. Maintain target INR between 2 and 3. (3) Cardiac pacemaker in situ: Comment: single-chamber [place] pacemaker in place for bradycardia Code(s): Z95.0 - Presence of cardiac pacemaker Plan: Cardiac pacemaker in-situ for significant bradycardia. Pacemaker is working well. Reprogrammed for adequate function. Follow up in the clinic in 6 months time, sooner p.r.n.. Thank you for allowing me to partake in his care Coding Level of Care Code Est Pt Level 4 (65043) Diagnoses (HFpEF) heart failure with preserved ejection fraction I50.30 Chronic atrial fibrillation I48.20 Cardiac pacemaker in situ Z95.0 CPT Codes Cardiac Device Check - Cardiac Device 1: [id number] Cardiac Device Check, leadless/single lead pacemaker ([id number]) EKG - CPT: 05768-[id number], Complete ([id number])
== END 2023-04-28 09:55 | disposition home or self-care (01) ==
PROVIDERS: PCP Internal Medicine; Visit Provider Internal Medicine Cardiovascular Disease
DX: I50.30 Unspecified diastolic (congestive) heart failure (principal); I48.20 Chronic atrial fibrillation, unspecified; Z95.0 Presence of cardiac pacemaker
CPT/HCPCS: 93010; 93279; 99214

== ENCOUNTER → 2023-04-28 09:21 | Outpatient (BNVA) | payer OTHER, SELFPAY | PROVIDERS: PCP Internal Medicine; Visit Provider Internal Medicine Cardiovascular Disease | DX: I50.30 Unspecified diastolic (congestive) heart failure (principal); I48.20 Chronic atrial fibrillation, unspecified; Z79.01 Long term (current) use of anticoagulants; Z45.018 Encounter for adjustment and management of other part of cardiac pacemaker | CPT/HCPCS: 93005 ==

== ENCOUNTER 2023-05-05 09:44 | Outpatient (AMB) | payer OTHER, SELFPAY ==
[2023-05-05 09:52] LABS: Prothrombin Time Whole Bld POC 27.6 sec (11.1-13.5); ~PT, ~INR - Anti Coag Clinic 2.3 (0.9-1.1)
--- NOTE | 2023-05-05 09:59 | MHC.OFFVISCO ---
Intake Intake Visit Reasons: Anticoagulation Allergies No Known Allergies Allergy (Mild, Verified 05/05/23 09:48) NONE Medication List - Last Reconciled 05/05/23 by Eileen Mcdonald RN amlodipine 10 mg PO BID dapagliflozin propanediol (Farxiga) 10 mg PO DAILY doxazosin 1 mg PO BID fenofibrate 54 mg PO DAILY furosemide 40 mg PO BID lisinopril 40 mg PO ONCE metoprolol succinate ER 50 mg PO DAILY simvastatin 20 mg PO DAILY spironolactone (Aldactone) 25 mg PO DAILY timolol maleate 0.5% 1 drp ophthalmic (eye) DAILY warfarin 2.5 mg See Protocol PO DAILY Nursing Note PT.STATES THAT HE HAS STARTED ALDACTONE AND FARXIGA(CAN LOWER INR) NO CP,SOB,DIET/MED CHANGES,FALLS OR SX OF BLEEDING. CONTINUE PRESENT DOSE AND FOLLOW-UP IN 5 WEEKS GOOD UNDERSTANDING OF DOSINGF INSTR. Coding Level of Care Code Est Patient Level 1 Diagnoses Current use of anticoagulant therapy Z79.01 Assessment & Plan Assessment & Plan (1) Current use of anticoagulant therapy: Code(s): Z79.01 - custodial (current) use of anticoagulants Category: Medical
== END 2023-05-05 10:04 | disposition home or self-care (01) ==
LOC: HO.ACS 09:44
PROVIDERS: PCP Internal Medicine; Visit Provider Internal Medicine
DX: Z79.01 Long term (current) use of anticoagulants (principal)

== ENCOUNTER → 2023-05-05 09:44 | Outpatient (BNVA) | payer OTHER, SELFPAY | PROVIDERS: PCP Internal Medicine; Visit Provider Internal Medicine | DX: I48.20 Chronic atrial fibrillation, unspecified (principal); Z51.81 Encounter for therapeutic drug level monitoring; Z79.01 Long term (current) use of anticoagulants | CPT/HCPCS: 85610; 99211 ==

== ENCOUNTER → 2023-05-19 23:59 | Outpatient (BNV) | payer OTHER, SELFPAY ==
--- NOTE | 2023-05-27 15:49 | MHC.OFFVIS ---
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 I was requested to read this study today. Pacemaker function is adequate [id number] Cardiac Device Interrogation, pacemaker Procedure code (CPT) selection complete Assessment & Plan Assessment & Plan (1) Cardiac pacemaker in situ: Comment: single-chamber [place] pacemaker in place for bradycardia Code(s): Z95.0 - Presence of cardiac pacemaker Category: Medical Plan: See above
== END ==
PROVIDERS: PCP Internal Medicine; Visit Provider Internal Medicine Cardiovascular Disease
DX: Z45.018 Encounter for adjustment and management of other part of cardiac pacemaker (principal)
CPT/HCPCS: 93294

== ENCOUNTER 2023-06-09 09:47 | Outpatient (AMB) | payer OTHER, SELFPAY ==
[2023-06-09 09:58] LABS: Prothrombin Time Whole Bld POC 45.4 sec (11.1-13.5); ~PT, ~INR - Anti Coag Clinic 3.8 (0.9-1.1)
--- NOTE | 2023-06-09 10:08 | MHC.OFFVISCO ---
Intake Intake Visit Reasons: Anticoagulation Allergies No Known Allergies Allergy (Mild, Verified 06/09/23 09:54) NONE Medication List - Last Reconciled 06/09/23 by Eileen Mcdonald RN amlodipine 10 mg PO BID dapagliflozin propanediol (Farxiga) 10 mg PO DAILY doxazosin 1 mg PO BID fenofibrate 54 mg PO DAILY furosemide 40 mg PO BID lisinopril 40 mg PO ONCE metoprolol succinate ER 50 mg PO DAILY simvastatin 20 mg PO DAILY spironolactone (Aldactone) 25 mg PO DAILY timolol maleate 0.5% 1 drp ophthalmic (eye) DAILY warfarin 2.5 mg See Protocol PO DAILY Nursing Note NO CP,SOB,DIET/MED CHANGES,FALLS OR SX OF BLEEDING. HOLD WARFARIN TODAY THEN RESUME USUAL DOSE AND FOLLOW-UP IN 4 WEEKS. GOOD UNDERSTANDING OF DOSING INSTR. Coding Level of Care Code Est Patient Level 1 Diagnoses Current use of anticoagulant therapy Z79.01 Assessment & Plan Assessment & Plan (1) Current use of anticoagulant therapy: Code(s): Z79.01 - intermediate (current) use of anticoagulants Category: Medical
== END 2023-06-09 10:09 | disposition home or self-care (01) ==
LOC: HO.ACS 09:47
PROVIDERS: PCP Internal Medicine; Visit Provider Internal Medicine
DX: Z79.01 Long term (current) use of anticoagulants (principal)

== ENCOUNTER → 2023-06-09 09:47 | Outpatient (BNVA) | payer OTHER, SELFPAY | PROVIDERS: PCP Internal Medicine; Visit Provider Internal Medicine | DX: I48.20 Chronic atrial fibrillation, unspecified (principal); Z51.81 Encounter for therapeutic drug level monitoring; Z79.01 Long term (current) use of anticoagulants | CPT/HCPCS: 85610; 99211 ==

== ENCOUNTER 2023-07-07 09:34 | Outpatient (AMB) | payer OTHER, SELFPAY ==
--- NOTE | 2023-07-07 09:41 | MHC.OFFVISCO ---
Intake Intake Visit Reasons: Anticoagulation Allergies No Known Allergies Allergy (Mild, Verified 07/07/23 09:37) NONE Medication List - Last Reconciled 07/07/23 by Larisa Freeman RN amlodipine 10 mg PO BID dapagliflozin propanediol (Farxiga) 10 mg PO DAILY doxazosin 1 mg PO BID fenofibrate 54 mg PO DAILY furosemide 40 mg PO BID lisinopril 40 mg PO ONCE metoprolol succinate ER 50 mg PO DAILY simvastatin 20 mg PO DAILY spironolactone (Aldactone) 25 mg PO DAILY timolol maleate 0.5% 1 drp ophthalmic (eye) DAILY warfarin 2.5 mg See Protocol PO DAILY Nursing Note INR 4.6-? out of therapeutic range of 2-3 Medications and supplements reviewed Patient status: pt states one beer last night, fresh tomatoes Medications or supplements: no changes Diet: s.o away Denies any signs and symptoms of bleeding or clotting or unusual bruising Bleeding, bruising, clotting discussed Nutritional guidance given: eat greens to lower- pt does not eat many greens Dose: no warfarin today and tomm then 1.25mg x 7 F/U INR Date : 1 week?? Patient verbalizing understanding of instructions given. Coding Level of Care Code Est Patient Level 1 Diagnoses Current use of anticoagulant therapy Z79.01 Assessment & Plan Assessment & Plan (1) Current use of anticoagulant therapy: Code(s): Z79.01 - joint terminal attack controller (current) use of anticoagulants Category: Medical
[2023-07-07 09:42] LABS: Prothrombin Time Whole Bld POC 55.1 sec (11.1-13.5); ~PT, ~INR - Anti Coag Clinic 4.6 (0.9-1.1)
== END 2023-07-07 09:48 | disposition home or self-care (01) ==
LOC: HO.ACS 09:34
PROVIDERS: PCP Internal Medicine; Visit Provider Internal Medicine
DX: Z79.01 Long term (current) use of anticoagulants (principal)

== ENCOUNTER → 2023-07-07 09:34 | Outpatient (BNVA) | payer OTHER, SELFPAY | PROVIDERS: PCP Internal Medicine; Visit Provider Internal Medicine | DX: I48.20 Chronic atrial fibrillation, unspecified (principal); Z51.81 Encounter for therapeutic drug level monitoring; Z79.01 Long term (current) use of anticoagulants | CPT/HCPCS: 85610; 99211 ==

== ENCOUNTER 2023-07-19 09:14 | Outpatient (REF) | payer OTHER, SELFPAY ==
[2023-07-19 09:37] LABS: MANUAL DIFF FLAG NO
[2023-07-19 10:13] LABS: Basophils Absolute Auto 0.1 X10*3/uL (0.0-0.2); Basophils Percent Auto 0.8 % (0-2); Eosinophils Absolute Auto 0.2 X10*3/uL (0.0-0.4); Eosinophils Percent Auto 3.9 % (0-4); Hematocrit 47.7 % (42.0-52.0); Hemoglobin 15.8 g/dl (14.0-18.0); Imm Gran Abs Auto 0.03 X10*3/uL (0.00-0.03); Imm Gran Pct Auto 0.5 % (0.0-0.4); Lymphocytes Percent Auto 15.3 % (20-40); Mean Corpuscular HGB Conc 33.1 g/dl (31.0-36.0); Mean Corpuscular Hemoglobin 32.7 pg (27.0-33.0); Mean Corpuscular Volume 98.8 fL (80.0-98.0); Mean Platelet Volume 10.6 fL (9.4-12.4); Monocytes Absolute Auto 0.6 X10*3/uL (0.1-1.2); Neutrophils Absolute Auto 4.4 x10*3/uL (2.0-8.3); Neutrophils Percent Auto 70.5 % (45-73); Platelet Count 162 X10*3/uL (160-400); Red Blood Count 4.83 X10*6/uL (4.60-5.80); Red Cell Distribution Width 13.9 % (11.0-16.0); White Blood Count 6.2 X10*3/uL (4.8-10.8)
[2023-07-19 10:46] LABS: Alanine Aminotransferase 18 U/L (0-40); Albumin Level 4.4 g/dL (3.5-5.0); Alkaline Phosphatase 53 U/L (39-117); Anion Gap 17 (12-20); Aspartate Amino Transferase 19 U/L (5-37); Bilirubin Total 0.6 mg/dL (0.0-1.0); Blood Urea Nitrogen 27 mg/dL (9-16); Carbon Dioxide 22 mmol/L (22-29); Chloride 106 mmol/L (96-108); Estimated Average Glucose 128 mg/dL; Estimated Glomerular Filt Rate 42; Glucose Random 123 mg/dL (60-115); Hemoglobin A1c % 6.1 % (<6.0); Potassium 4.7 mmol/L (3.3-5.1); Sodium 140 mmol/L (135-145); Total Protein 7.2 g/dL (6.5-8.0)
[2023-07-19 12:02] LABS: Creatinine Urine 89.47 mg/dL; Microalbum/Creatinine Ratio Ur 31.2 ug/mg cr (<30)
== END 2023-07-19 09:15 | disposition home or self-care (01) ==
LOC: HO.LAB 09:14
PROVIDERS: PCP Internal Medicine; Visit Provider Internal Medicine
DX: I12.9 Hypertensive chronic kidney disease with stage 1 through stage 4 chronic kidney disease, or unspecified chronic kidney disease (principal); E11.22 Type 2 diabetes mellitus with diabetic chronic kidney disease; N18.9 Chronic kidney disease, unspecified; I48.0 Paroxysmal atrial fibrillation
CPT/HCPCS: 36415; 80053; 82043; 82570; 83036; 85025; 85610; 99211

== ENCOUNTER 2023-07-19 10:03 | Outpatient (AMB) | payer OTHER, SELFPAY ==
[2023-07-19 10:12] LABS: Prothrombin Time Whole Bld POC 36.5 sec (11.1-13.5)
--- NOTE | 2023-07-19 10:27 | MHC.OFFVISCO ---
Intake Intake Visit Reasons: Anticoagulation Allergies No Known Allergies Allergy (Mild, Verified 07/07/23 09:37) NONE Medication List - Last Reconciled 07/19/23 by Dayna Rice RN amlodipine 10 mg PO BID dapagliflozin propanediol (Farxiga) 10 mg PO DAILY doxazosin 1 mg PO BID fenofibrate 54 mg PO DAILY furosemide 40 mg PO BID lisinopril 40 mg PO ONCE metoprolol succinate ER 50 mg PO DAILY simvastatin 20 mg PO DAILY spironolactone (Aldactone) 25 mg PO DAILY timolol maleate 0.5% 1 drp ophthalmic (eye) DAILY warfarin 2.5 mg See Protocol PO DAILY Nursing Note INR: 3.0 in therapeutic range Medications and supplements reviewed No changes in health, diet, medications, or supplements, Denies any signs and symptoms of bleeding or bruising or clotting. Bleeding, bruising, clotting discussed Nutritional guidance given - KEEP UP WEEKLY GREENS THAT YOU LIKE ESPECIALLY WHEN HAVING MELON AND TOMATOES (THEY RAISE YOUR INR) Dose: KEEP SAME 1.25MG DAILY - MAY NEED TO HOLD X 1 DAY OR CHANGE TO 1MG TAB OR SWITCH TO DOAC F/U INR: 4 WEEKS PER PT REQUEST WILL BE AT HIS CAMP IN [place] - IF INCREASE IN [place] TO CALL [facility] FOR AN APPT Patient verbalizes understanding of instructions given Coding Level of Care Code Est Patient Level 1 Diagnoses Current use of anticoagulant therapy Z79.01 Assessment & Plan Assessment & Plan (1) Current use of anticoagulant therapy: Code(s): Z79.01 - group home (current) use of anticoagulants Category: Medical Medications: New doxylamine succinate (Unisom (doxylamine)) 25 mg PO BEDTIME PRN
== END 2023-07-19 10:30 | disposition home or self-care (01) ==
LOC: HO.ACS 10:03
PROVIDERS: PCP Internal Medicine; Visit Provider Internal Medicine
DX: Z79.01 Long term (current) use of anticoagulants (principal)

== ENCOUNTER → 2023-08-25 23:59 | Outpatient (BNV) | payer OTHER, SELFPAY ==
--- NOTE | 2023-08-30 16:01 | MHC.OFFVIS ---
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 Pacemaker function is adequate [id number] Cardiac Device Interrogation, pacemaker Procedure code (CPT) selection complete Assessment & Plan Assessment & Plan (1) Cardiac pacemaker in situ: Comment: single-chamber [place] pacemaker in place for bradycardia Code(s): Z95.0 - Presence of cardiac pacemaker Category: Medical Plan: See above Coding Level of Care Code Procedure Only Diagnoses Cardiac pacemaker in situ Z95.0 CPT Codes Cardiac Device Check - Cardiac Device 12: [id number] Cardiac Device Interrogation, pacemaker ([id number])
== END ==
PROVIDERS: PCP Internal Medicine; Visit Provider Internal Medicine Cardiovascular Disease
DX: R00.1 Bradycardia, unspecified (principal); Z95.0 Presence of cardiac pacemaker
CPT/HCPCS: 93294

== ENCOUNTER 2023-09-01 09:48 | Outpatient (AMB) | payer OTHER, SELFPAY ==
[2023-09-01 09:57] LABS: Prothrombin Time Whole Bld POC 37.7 sec (11.1-13.5); ~PT, ~INR - Anti Coag Clinic 3.1 (0.9-1.1)
--- NOTE | 2023-09-01 10:05 | MHC.OFFVISCO ---
Intake Intake Visit Reasons: Anticoagulation Allergies No Known Allergies Allergy (Mild, Verified 09/01/23 09:49) NONE Medication List - Last Reconciled 09/01/23 by Eileen Mcdonald RN amlodipine 10 mg PO BID dapagliflozin propanediol (Farxiga) 10 mg PO DAILY doxazosin 1 mg PO BID doxylamine succinate (Unisom (doxylamine)) 25 mg PO BEDTIME PRN fenofibrate 54 mg PO DAILY furosemide 40 mg PO BID lisinopril 40 mg PO ONCE metoprolol succinate ER 50 mg PO DAILY simvastatin 20 mg PO DAILY spironolactone (Aldactone) 25 mg PO DAILY timolol maleate 0.5% 1 drp ophthalmic (eye) DAILY warfarin 2.5 mg See Protocol PO DAILY Nursing Note NO CFP,SOB,DIET/MED CHANGES,FALLS OR SX OF BLEEDING. CONTINUE PRESENT DOSE ANF FOLLOW-UP IN 5 WEEKS. GREENS TODAY AND 2-3X WEEKLY GOOD UNDERSTANDING OF DOSING INSTR. Coding Level of Care Code Est Patient Level 1 Diagnoses Current use of anticoagulant therapy Z79.01 Assessment & Plan Assessment & Plan (1) Current use of anticoagulant therapy: Code(s): Z79.01 - prison (current) use of anticoagulants Category: Medical
== END 2023-09-01 10:06 | disposition home or self-care (01) ==
LOC: HO.ACS 09:48
PROVIDERS: PCP Internal Medicine; Visit Provider Internal Medicine
DX: Z79.01 Long term (current) use of anticoagulants (principal)

== ENCOUNTER → 2023-09-01 09:48 | Outpatient (BNVA) | payer OTHER, SELFPAY | PROVIDERS: PCP Internal Medicine; Visit Provider Internal Medicine | DX: I48.20 Chronic atrial fibrillation, unspecified (principal); Z51.81 Encounter for therapeutic drug level monitoring; Z79.01 Long term (current) use of anticoagulants | CPT/HCPCS: 85610; 99211 ==

== ENCOUNTER 2023-09-23 11:51 | Outpatient (REF) | payer OTHER, SELFPAY ==
[2023-09-23 13:11] LABS: MANUAL DIFF FLAG NO
[2023-09-23 13:17] LABS: Basophils Absolute Auto 0.1 X10*3/uL (0.0-0.2); Basophils Percent Auto 0.7 % (0-2); Eosinophils Absolute Auto 0.2 X10*3/uL (0.0-0.4); Eosinophils Percent Auto 3.2 % (0-4); Hematocrit 48.1 % (42.0-52.0); Hemoglobin 16.5 g/dl (14.0-18.0); Imm Gran Abs Auto 0.04 X10*3/uL (0.00-0.03); Imm Gran Pct Auto 0.5 % (0.0-0.4); Lymphocytes Absolute Auto 1.1 X10*3/uL (1.2-4.9); Lymphocytes Percent Auto 14.5 % (20-40); Mean Corpuscular HGB Conc 34.3 g/dl (31.0-36.0); Mean Corpuscular Hemoglobin 33.3 pg (27.0-33.0); Mean Platelet Volume 10.4 fL (9.4-12.4); Monocytes Absolute Auto 0.8 X10*3/uL (0.1-1.2); Monocytes Percent Auto 10.7 % (2-11); Neutrophils Absolute Auto 5.3 x10*3/uL (2.0-8.3); Neutrophils Percent Auto 70.4 % (45-73); Platelet Count 162 X10*3/uL (160-400); Red Blood Count 4.96 X10*6/uL (4.60-5.80); White Blood Count 7.5 X10*3/uL (4.8-10.8)
[2023-09-23 13:46] LABS: Estimated Average Glucose 123 mg/dL; Hemoglobin A1c % 5.9 % (<6.0)
[2023-09-23 13:48] LABS: Alanine Aminotransferase 21 U/L (0-40); Albumin Level 4.7 g/dL (3.5-5.0); Alkaline Phosphatase 54 U/L (39-117); Anion Gap 13 (12-20); Aspartate Amino Transferase 22 U/L (5-37); Bilirubin Total 0.7 mg/dL (0.0-1.0); Blood Urea Nitrogen 33 mg/dL (9-16); C Reactive Protein 0.29 mg/dL (< or = 0.50); Calcium 11.2 mg/dL (8.4-10.2); Carbon Dioxide 25 mmol/L (22-29); Chloride 106 mmol/L (96-108); Estimated Glomerular Filt Rate 41; Glucose Random 118 mg/dL (60-115); Potassium 4.4 mmol/L (3.3-5.1); Sodium 140 mmol/L (135-145); Total Protein 7.7 g/dL (6.5-8.0)
[2023-09-23 13:55] LABS: Uric Acid 10.4 mg/dL (3.4-7.0)
== END 2023-09-23 11:52 | disposition home or self-care (01) ==
LOC: HO.10HDL 11:51
PROVIDERS: Visit Provider Internal Medicine
DX: I12.9 Hypertensive chronic kidney disease with stage 1 through stage 4 chronic kidney disease, or unspecified chronic kidney disease (principal); E11.22 Type 2 diabetes mellitus with diabetic chronic kidney disease; N18.9 Chronic kidney disease, unspecified; I48.0 Paroxysmal atrial fibrillation
CPT/HCPCS: 36415; 80053; 83036; 84550; 85025; 86140

== ENCOUNTER 2023-10-05 09:19 | Outpatient (REF) | payer OTHER, SELFPAY ==
[2023-10-05 11:03] LABS: Anion Gap 12 (12-20); Blood Urea Nitrogen 39 mg/dL (9-16); Calcium 10.9 mg/dL (8.4-10.2); Carbon Dioxide 24 mmol/L (22-29); Chloride 106 mmol/L (96-108); Estimated Glomerular Filt Rate 38; Glucose Random 171 mg/dL (60-115); Potassium 4.4 mmol/L (3.3-5.1); Sodium 138 mmol/L (135-145)
[2023-10-05 11:07] LABS: Estimated Average Glucose 123 mg/dL; Hemoglobin A1c % 5.9 % (<6.0)
[2023-10-05 11:26] LABS: Parathyroid Hormone Intact 137.8 pg/mL (8.7-77.1)
== END 2023-10-05 09:20 | disposition home or self-care (01) ==
LOC: HO.10HDL 09:19
PROVIDERS: Visit Provider Internal Medicine
DX: E83.52 Hypercalcemia (principal); N18.9 Chronic kidney disease, unspecified; Z13.1 Encounter for screening for diabetes mellitus
CPT/HCPCS: 36415; 80048; 83036; 83970

== ENCOUNTER 2023-10-20 09:13 | Outpatient (AMB) | payer OTHER, SELFPAY ==
--- NOTE | 2023-10-20 09:42 | MHC.OFFVISCO ---
Intake Intake Visit Reasons: Anticoagulation Allergies No Known Allergies Allergy (Mild, Verified 10/20/23 09:35) NONE Medication List - Last Reconciled 10/20/23 by Larisa Freeman RN amlodipine 10 mg PO BID dapagliflozin propanediol (Farxiga) 10 mg PO DAILY doxazosin 1 mg PO BID doxylamine succinate (Unisom (doxylamine)) 25 mg PO BEDTIME PRN fenofibrate 54 mg PO DAILY furosemide 40 mg PO BID lisinopril 40 mg PO ONCE metoprolol succinate ER 50 mg PO DAILY simvastatin 20 mg PO DAILY spironolactone (Aldactone) 25 mg PO DAILY timolol maleate 0.5% 1 drp ophthalmic (eye) DAILY warfarin 2.5 mg See Protocol PO DAILY Nursing Note INR 3.2-?? out of therapeutic range of 2-3 Medications and supplements reviewed Patient status: pt prev infection on toe Medications or supplements: no changes, pt states finished doxycycline approx 2 weeks ago- did not call acs pt instructed to call acs with any medication changes Diet: same Denies any signs and symptoms of bleeding or clotting or unusual bruising Bleeding, bruising, clotting discussed Nutritional guidance given: had tomatoes, will eat greens to lower Dose: 1.25mg x 7 F/U INR Date : ref earlier-11/10/23? Patient verbalizing understanding of instructions given. Coding Level of Care Code Est Patient Level 1 Diagnoses Current use of anticoagulant therapy Z79.01 Assessment & Plan Assessment & Plan (1) Current use of anticoagulant therapy: Code(s): Z79.01 - detention (current) use of anticoagulants Category: Medical
[2023-10-20 09:44] LABS: Prothrombin Time Whole Bld POC 38.4 sec (11.1-13.5); ~PT, ~INR - Anti Coag Clinic 3.2 (0.9-1.1)
== END 2023-10-20 10:02 | disposition home or self-care (01) ==
LOC: HO.ACS 09:13
PROVIDERS: PCP Internal Medicine; Visit Provider Internal Medicine
DX: Z79.01 Long term (current) use of anticoagulants (principal)

== ENCOUNTER → 2023-10-20 09:13 | Outpatient (BNVA) | payer OTHER, SELFPAY | PROVIDERS: PCP Internal Medicine; Visit Provider Internal Medicine | DX: I48.20 Chronic atrial fibrillation, unspecified (principal); Z79.01 Long term (current) use of anticoagulants; Z51.81 Encounter for therapeutic drug level monitoring | CPT/HCPCS: 85610; 99211 ==

== ENCOUNTER 2023-11-04 10:18 | Outpatient (AMB) | payer OTHER, SELFPAY ==
--- NOTE | 2023-11-04 10:29 | A.OFFVIS_ITS ---
Vital Signs 11/04/23 10:30 Height 5 ft 10 in Weight 218 lb 4.122 oz BMI 31.3 BP 120/82 Blood Pressure Location Lt brachial Position Sitting Pulse 60 Intake Visit Reasons: 6 mth f/up Intake Note: 6 month follow-up with [facility] check feeling good Cert Pharmacy Tech Required: No Allergies No Known Allergies Allergy (Mild, Verified 10/20/23 09:35) NONE Medication List - Last Reconciled 11/04/23 by Nish Devine MD amlodipine 10 mg PO BID dapagliflozin propanediol (Farxiga) 10 mg PO DAILY doxazosin 1 mg PO BID doxylamine succinate (Unisom (doxylamine)) 25 mg PO BEDTIME PRN fenofibrate 54 mg PO DAILY furosemide 40 mg PO BID lisinopril 40 mg PO ONCE metoprolol succinate ER 50 mg PO DAILY simvastatin 20 mg PO DAILY spironolactone (Aldactone) 25 mg PO DAILY timolol maleate 0.5% 1 drp ophthalmic (eye) DAILY warfarin 2.5 mg See Protocol PO DAILY HPI Comments Details: Sumit comes for follow-up. He has no new cardiac symptoms. Remains active for his age. Does not exercise on a regular basis. However he denies any symptoms exertional chest pain or shortness of breath. No worsening orthopnea, PND, leg edema. Takes all his medications. No bleeding issues or neurologic events. No palpitations. 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 HTN (hypertension) Obstructive sleep apnea Obesity Surgical History History of permanent cardiac pacemaker placement Family History Father Diabetes Cancer Mother Cancer Social History Advance Directives Date on File: 11/13/19 Review of Systems Const Denies chills, Denies fatigue, Denies fever(s), Denies frequent falls, Denies weakness, Denies weight gain and Denies weight loss ENT Denies dizziness Card Denies chest pain, Denies leg edema, Denies lightheadedness, Denies palpitations, Denies dyspnea, Denies dyspnea on exertion, Denies orthopnea and Denies other (loss of consciousness) Resp Denies cough, Denies dyspnea and Denies dyspnea on exertion GI Denies hematochezia and Denies change in stool character Musc Denies abnormal gait, Denies muscle weakness, Denies numbness, Denies radiating pain into limb and Denies tingling Neuro Denies abnormal gait, Denies dizziness, Denies frequent falls, Denies numbness, Denies tingling and Denies weakness Endo Denies fatigue and Denies palpitations Physical Exam Vital Signs: Last Vital Signs Pulse 60 11/04/23 10:30 BP 120/82 11/04/23 10:30 BMI result Body Mass Index 31.3 Const General: cooperative, comfortable, no acute distress, alert and awake Nutritional Appearance: obese Orientation/consciousness: patient oriented x3 Limitations: no limitations Neck Neck: Yes trachea midline, Yes supple and Yes no JVD Resp Effort & Inspection: normal respiratory effort Auscultation: wheezes throughout (Right posterior) and diminished lung sounds Cardio Jugular venous distension: no JVD Rate: regular rate Rhythm: regular rhythm Heart sounds: S1 normal heart sound present and S2 normal heart sound present GI Auscultation: normal bowel sounds Skin General skin exam: no rashes or lesions noted and ecchymosis Neuro General: patient oriented x3 and no focal motor deficits Extrem General: Yes no clubbing, cyanosis or edema Psych Appearance: grossly normal Office Procedures Cardiac Device Check Cardiac Device Check Details: Single-chamber [place] pacemaker in place. Programmed in VVIR at 60 beats per minute. Ventricular pacing 86% of time. Underlying atrial fibrillation which is known. Ventricular capture thresholds adequate. Ventricular sensing is adequate. Pacing lead impedance is stable. Battery life is at 1.8 years [id number] Cardiac Device Check, leadless/single lead pacemaker Procedure code (CPT) selection complete Assessment & Plan Assessment & Plan (1) (HFpEF) heart failure with preserved ejection fraction: Code(s): I50.30 - Unspecified diastolic (congestive) heart failure Category: Medical Plan: Heart failure preserved ejection fraction, clinically euvolemic and well compensated current diuretic dose. Doing well from that perspective. He does have significant LVH and the suggestive of amyloidosis although he was no other features for amyloidosis. Continue monitor clinically. Continue current diuretic dose. Daily weight monitoring avoidance of salt loading was discussed. Continue neurohormonal modulation with Farxiga as well as spironolactone therapy. Continue CPAP therapy. Continue aggressive control blood pressure which is currently well optimized. Additional diuretics as need be. Advised to call me with worsening symptoms. (2) Cardiac pacemaker in situ: Comment: single-chamber [place] pacemaker in place for bradycardia Code(s): Z95.0 - Presence of cardiac pacemaker Category: Medical Plan: Cardiac pacemaker in-situ for significant bradycardia. Pacemaker is working well. Reprogrammed for adequate function. Will follow up in 6 months time. (3) Chronic atrial fibrillation: Code(s): I48.20 - Chronic atrial fibrillation, unspecified Category: Medical Plan: Chronic longstanding atrial fibrillation. Currently rate controlled. Continue rate control strategy with metoprolol. Continue full oral anticoagulation, currently on warfarin therapy being managed by [facility]. Maintain target INR between 2 and 3. Follow up in the clinic in 6 months time after an echocardiogram. Thank you for allowing me to partake in his care Coding Level of Care Code Est Pt Level 4 (49381) Diagnoses (HFpEF) heart failure with preserved ejection fraction I50.30 Cardiac pacemaker in situ Z95.0 Chronic atrial fibrillation I48.20 CPT Codes Cardiac Device Check - Cardiac Device 1: [id number] Cardiac Device Check, leadless/single lead pacemaker ([id number])
[2023-11-04 10:30] VITALS: BP 120/82; PULSE 60; BMI 31.3
== END 2023-11-04 10:51 | disposition home or self-care (01) ==
PROVIDERS: PCP Internal Medicine; Visit Provider Internal Medicine Cardiovascular Disease
DX: I50.30 Unspecified diastolic (congestive) heart failure (principal); Z95.0 Presence of cardiac pacemaker; I48.20 Chronic atrial fibrillation, unspecified
CPT/HCPCS: 93279; 99214

== ENCOUNTER → 2023-11-04 10:18 | Outpatient (BNVA) | payer OTHER, SELFPAY | PROVIDERS: PCP Internal Medicine; Visit Provider Internal Medicine Cardiovascular Disease ==

== ENCOUNTER 2023-11-10 10:03 | Outpatient (AMB) | payer OTHER, SELFPAY ==
--- NOTE | 2023-11-10 10:13 | MHC.OFFVISCO ---
Intake Intake Visit Reasons: Anticoagulation Allergies No Known Allergies Allergy (Mild, Verified 11/10/23 10:09) NONE Medication List - Last Reconciled 11/10/23 by Larisa Freeman RN amlodipine 10 mg PO BID dapagliflozin propanediol (Farxiga) 10 mg PO DAILY doxazosin 1 mg PO BID doxylamine succinate (Unisom (doxylamine)) 25 mg PO BEDTIME PRN fenofibrate 54 mg PO DAILY furosemide 40 mg PO BID lisinopril 40 mg PO ONCE metoprolol succinate ER 50 mg PO DAILY simvastatin 20 mg PO DAILY spironolactone (Aldactone) 25 mg PO DAILY timolol maleate 0.5% 1 drp ophthalmic (eye) DAILY warfarin 2.5 mg See Protocol PO DAILY Nursing Note INR: 2.6- in therapeutic range of 2-3 Medications and supplements reviewed- no changes No changes in health, diet, medications, or supplements, Denies any signs and symptoms of bleeding or bruising or clotting. Bleeding, bruising, clotting discussed Nutritional guidance given Dose: 1.25mg x 7 F/U INR: ref earlier than 12/15/23 Patient verbalizes understanding of instructions given Questionnaires HAS-BLED Does the patient had uncontrolled Hypertension?: No Does the patient have renal disease?: No Does the patient have liver disease?: No Does the patient have a history of stroke?: No Has the patient had major bleeding or predisposition to bleeding?: No Does the patient have labile INRs?: No Is the patient over 65 years of age?: Yes Is the patient on medications that gives them a predisposition to bleeding?: Yes Does the patient use alcohol?: Yes HAS-BLED Score: 3 CHADSVASC Age: 75 or over Gender: Male Does the patient have a history of CHF?: Yes Does the patient have a history of Hypertension?: Yes Does the patient have a history of Stroke/TIA/Thromboembolism?: No Does the patient have a history of Vascular Disease (prior VA, PAD or aortic plaque)?: No Does the patient have a history of Diabetes?: No CHADS VACS Score: 4 Librado Prediction Score Rsk VTE Active Cancer: No Previous VTE, excluding superficial vein thrombosis: No Reduced mobility: No Already known Thrombophilic Condition: No With-in last month Trauma and/or Surgery: No Elderly 70 year or older: Yes Heart and/or Respiratory Failure: Yes Acute Myocardial infarction and/or Ischemic Stroke: No Acute Infection and/or Rheumatologic Disorder: No Obesity (BMI 30 or greater): Yes Ongoing Hormonal Treatment: No Score: 3 Librado Score less than 4; Low Risk of VTE Librado Score 4 or greater; High Risk of VTE Coding Level of Care Code Est Patient Level 1 Diagnoses Current use of anticoagulant therapy Z79.01 Results AMB INR Fingerstick AMB INR Fingerstick 2.6 Last Edit by Larisa Freeman RN on 11/10/23 10:15 interface delay Assessment & Plan Assessment & Plan (1) Current use of anticoagulant therapy: Code(s): 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
[2023-11-10 10:15] LABS: ~PT, ~INR - Anti Coag Clinic 2.6 (0.9-1.1)
== END 2023-11-10 10:22 | disposition home or self-care (01) ==
LOC: HO.ACS 10:03
PROVIDERS: PCP Internal Medicine; Visit Provider Internal Medicine
DX: Z79.01 Long term (current) use of anticoagulants (principal)

== ENCOUNTER → 2023-11-10 10:03 | Outpatient (BNVA) | payer OTHER, SELFPAY | PROVIDERS: PCP Internal Medicine; Visit Provider Internal Medicine | DX: I48.20 Chronic atrial fibrillation, unspecified (principal); Z79.01 Long term (current) use of anticoagulants; Z51.81 Encounter for therapeutic drug level monitoring | CPT/HCPCS: 85610; 99211 ==

== ENCOUNTER → 2023-11-24 23:59 | Outpatient (BNV) | payer OTHER, SELFPAY ==
--- NOTE | 2023-12-13 17:36 | MHC.OFFVIS ---
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 Pacemaker function is adequate [id number] Cardiac Device Interrogation, pacemaker Procedure code (CPT) selection complete Assessment & Plan Assessment & Plan (1) Cardiac pacemaker in situ: Comment: single-chamber [place] pacemaker in place for bradycardia Code(s): Z95.0 - Presence of cardiac pacemaker Category: Medical Plan: See above Coding Level of Care Code Procedure Only Diagnoses Cardiac pacemaker in situ Z95.0 CPT Codes Cardiac Device Check - Cardiac Device 12: [id number] Cardiac Device Interrogation, pacemaker ([id number])
== END ==
PROVIDERS: PCP Internal Medicine; Visit Provider Internal Medicine Cardiovascular Disease
DX: Z45.018 Encounter for adjustment and management of other part of cardiac pacemaker (principal)
CPT/HCPCS: 93294

== ENCOUNTER 2023-12-09 13:38 | Outpatient (AMB) | payer OTHER, SELFPAY ==
--- NOTE | 2023-12-09 14:06 | HO.NEPHOV_ITS ---
Vital Signs 12/09/23 14:08 Height 5 ft 10 in Weight 217 lb BMI 31.1 BP 112/54 L Blood Pressure Location Lt brachial Position Sitting Pulse 74 Pulse Source Pulse Oximeter Pulse Oximetry (%) 92 Oxygen Delivery Method Room Air Intake Visit Reasons: ENP:Elevated Creatinine Retail And Promotions Coordinator Required: No Accompanied by: Spouse Allergies No Known Allergies Allergy (Mild, Verified 12/14/23 09:38) NONE HPI Comments Details: I had the pleasure of seeing Sumit with a H/O of recent rise in serum creatinine from his baseline CKD. He also has been having hyperuricemia as well as hypercalcemia and high PTH. He has been hypertensive for a long time. He had been taking lisinopril 40 mg twice daily. He has H/O heart failure with preserved ejection fraction. He does have significant LVH . ECHO was suspicious of amyloidosis although he was no protienuria or other features for amyloidosis. He is on Farxiga, lasix as well as spironolactone. He has ISAAC and is on CPAP. 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 He has hyperuricemia. He has no H/O renal calculi. He is not taking any uric acid lowering medication. He denies nausea, vomiting, diarrhea, dizziness, edema, PND, orthopnea or orthostatic symptoms. He does not take excess NSAID's. He has no H/O weight loss or malignancy. He is on anticoagulation. He denies epistaxis, hemetemesis, melena, sinusitis or hematuria. [facility], LAT[facility] Medical History Iliotibial band syndrome Lumbar radiculopathy Chronic atrial fibrillation Cardiac pacemaker in situ Hypertensive heart disease with heart failure HTN (hypertension) Obstructive sleep apnea Obesity Surgical History History of permanent cardiac pacemaker placement Family History Father Diabetes Cancer Mother Cancer Social History Advance Directives Date on File: 11/13/19 Review of Systems Const All systems reviewed & are unremarkable except as noted in HPI and below Physical Exam Vital Signs: Last Vital Signs Pulse 74 12/09/23 14:08 BP 112/54 L 12/09/23 14:08 Pulse Ox 92 12/09/23 14:08 Oxygen Delivery Method Room Air 12/09/23 14:08 BMI result Body Mass Index 31.1 Const General: comfortable and no acute distress Orientation/consciousness: patient oriented x3 HEENT Head: Yes normocephalic Mouth: Normal oral and palatal mucosa present Eyes EOM: EOMs intact bilaterally Neck Neck: Yes supple Resp Auscultation: clear to auscultation bilaterally Cardio Jugular venous distension: no JVD Rate: regular rate GI Palpation (GI): Soft to palpation Auscultation: normal bowel sounds General: Yes no CVA tenderness Back/Spine/Pelvis Back: no CVA tenderness Skin General skin exam: no rashes or lesions noted Neuro General: patient oriented x3 and moves all extremities Extrem General: Yes no pedal edema Results Reviewed Nephrology Results: Hgb 15.3 g/dl (14.0-18.0) 12/10/23 WBC 7.7 X10*3/uL (4.8-10.8) 12/10/23 Plt Count 243 X10*3/uL (160-400) 12/10/23 Sodium 138 mmol/L (135-145) 12/10/23 Potassium 4.6 mmol/L (3.3-5.1) 12/10/23 Chloride 107 mmol/L (96-108) 12/10/23 Carbon Dioxide 19 mmol/L (22-29) L 12/10/23 BUN 27 mg/dL (9-16) H 12/10/23 Creatinine 1.45 mg/dL (0.5-1.4) H 12/10/23 Calcium 11.1 mg/dL (8.4-10.2) H 12/10/23 PTH Intact 137.8 pg/mL (8.7-77.1) H 10/05/23 Assessment & Plan Assessment & Plan (1) HTN (hypertension): Code(s): I10 - Essential (primary) hypertension Category: Medical Qualifiers: Hypertension type: primary hypertension Qualified Code(s): I10 - Essential (primary) hypertension (2) Primary hyperparathyroidism: Code(s): E21.0 - Primary hyperparathyroidism Category: Medical (3) SHERIE (acute kidney injury): Code(s): N17.9 - Acute kidney failure, unspecified Category: Medical (4) Hypercalcemia: Code(s): E83.52 - Hypercalcemia Category: Medical (5) Renal cyst, right: Code(s): N28.1 - Cyst of kidney, acquired Category: Medical (6) CKD stage 3a, GFR 45-59 ml/min: Code(s): N18.31 - Chronic kidney disease, stage 3a Category: Medical (7) Hyperuricemia: Code(s): E79.0 - Hyperuricemia without signs of inflammatory arthritis and tophaceous di sease Category: Medical Plan Sumit has CKD due to long standing hypertension and vascular disease along with age related loss of renal function. He has been on lisinopril 40 mg twice daily which needs to brought down to once a day. He can continue rest of his current medications for now. He can take hydralazine when his ACEI is reduced in dosage. He likely has primary hyperparathyroidism with hypercalcemia but paraproteinemia needs to be ruled out given his age. I have ordered extensive work up including imaging studies. When he is confirmed to have primary hyperparathyroidism, I plan to start him on cinacalcet. I also will start him on uric acid lowering medication at the next visit. Otherwise he could continue rest of his current medication regimen for now. Time spent retrieving all his data, reviewing records, patient encounter, documentation include 65 minutes. Answered all questions. F/U given Orders: Orders Creatinine 12/10/23 E83.52 - Hypercalcemia, N17.9 - Acute kidney failure, unspecified, E21.0 - Primary hyperparathyroidism, I10 - Essential (primary) hypertension Blood Urea Nitrogen 12/10/23 E83.52 - Hypercalcemia, N17.9 - Acute kidney failure, unspecified, E21.0 - Primary hyperparathyroidism, I10 - Essential (primary) hypertension Calcium 12/10/23 E83.52 - Hypercalcemia, N17.9 - Acute kidney failure, unspecified, E21.0 - Primary hyperparathyroidism, I10 - Essential (primary) hypertension Vitamin D 25-OH Total 12/10/23 E83.52 - Hypercalcemia, N17.9 - Acute kidney failure, unspecified, E21.0 - Primary hyperparathyroidism, I10 - Essential (primary) hypertension Phospholipase A2 Receptor Pnl 12/10/23 E83.52 - Hypercalcemia, N17.9 - Acute kidney failure, unspecified, E21.0 - Primary hyperparathyroidism, I10 - Essential (primary) hypertension Hepatitis B Core Antibody 12/10/23 E83.52 - Hypercalcemia, N17.9 - Acute kidney failure, unspecified, E21.0 - Primary hyperparathyroidism, I10 - Essential (primary) hypertension Hepatitis B Surface Antigen 12/10/23 E83.52 - Hypercalcemia, N17.9 - Acute kidney failure, unspecified, E21.0 - Primary hyperparathyroidism, I10 - Essential (primary) hypertension US renal BI 12/09/23 N17.9 - Acute kidney failure, unspecified, E83.52 - Hypercalcemia, E21.0 - Primary hyperparathyroidism, I10 - Essential (primary) hypertension US renal doppler 12/09/23 N17.9 - Acute kidney failure, unspecified, E83.52 - Hypercalcemia, E21.0 - Primary hyperparathyroidism, I10 - Essential (primary) hypertension Immunofixation, Random Urine 12/10/23 N17.9 - Acute kidney failure, unspecified Electrolytes 12/10/23 E83.52 - Hypercalcemia, N17.9 - Acute kidney failure, unspecified, E21.0 - Primary hyperparathyroidism, I10 - Essential (primary) hypertension Vitamin D 1,25 dihydroxy 12/10/23 E83.52 - Hypercalcemia, N17.9 - Acute kidney failure, unspecified, E21.0 - Primary hyperparathyroidism, I10 - Essential (primary) hypertension NM parathyroid 12/09/23 E21.0 - Primary hyperparathyroidism, I10 - Essential (primary) hypertension, N17.9 - Acute kidney failure, unspecified, E83.52 - Hypercalcemia Anti DNA DS Antibody 12/10/23 E83.52 - Hypercalcemia, N17.9 - Acute kidney failure, unspecified, E21.0 - Primary hyperparathyroidism, I10 - Essential (primary) hypertension Myeloperoxidase Antibody 12/10/23 E83.52 - Hypercalcemia, N17.9 - Acute kidney failure, unspecified, E21.0 - Primary hyperparathyroidism, I10 - Essential (primary) hypertension Proteinase 3 PR3 Antibodies 12/10/23 E83.52 - Hypercalcemia, N17.9 - Acute kidney failure, unspecified, E21.0 - Primary hyperparathyroidism, I10 - Essential (primary) hypertension Anti Glomerular Basement Memb 12/10/23 E83.52 - Hypercalcemia, N17.9 - Acute kidney failure, unspecified, E21.0 - Primary hyperparathyroidism, I10 - Essential (primary) hypertension Immunofixation Pnl, Serum 12/10/23 E83.52 - Hypercalcemia, N17.9 - Acute kidney failure, unspecified, E21.0 - Primary hyperparathyroidism, I10 - Essential (primary) hypertension Complement C4 12/10/23 E83.52 - Hypercalcemia, N17.9 - Acute kidney failure, unspecified, E21.0 - Primary hyperparathyroidism, I10 - Essential (primary) hypertension Complement C3 12/10/23 E83.52 - Hypercalcemia, N17.9 - Acute kidney failure, unspecified, E21.0 - Primary hyperparathyroidism, I10 - Essential (primary) hypertension Medications: New hydralazine 25 mg PO BID 60 tabs 2RF Coding Level of Care Code New Pt Level 5 (78964) Diagnoses Primary hypertension I10 Hypertension type: primary hypertension Primary hyperparathyroidism E21.0 SHERIE (acute kidney injury) N17.9 Hypercalcemia E83.52 Renal cyst, right N28.1 CKD stage 3a, GFR 45-59 ml/min N18.31 Hyperuricemia E79.0
[2023-12-09 14:08] VITALS: BP 112/54; PULSE 74; O2SAT 92; BMI 31.1
== END 2023-12-09 14:51 | disposition home or self-care (01) ==
LOC: HO.HKAS 13:39
PROVIDERS: PCP Internal Medicine; Referring Provider Internal Medicine; Visit Provider Internal Medicine Nephrology
DX: I10 Essential (primary) hypertension (principal); E21.0 Primary hyperparathyroidism; N17.9 Acute kidney failure, unspecified; N18.31 Chronic kidney disease, stage 3a; N28.1 Cyst of kidney, acquired; E79.0 Hyperuricemia without signs of inflammatory arthritis and tophaceous disease
CPT/HCPCS: 99205

== ENCOUNTER → 2023-12-09 13:38 | Outpatient (BNVA) | payer OTHER, SELFPAY | PROVIDERS: PCP Internal Medicine; Referring Provider Internal Medicine; Visit Provider Internal Medicine Nephrology ==

== ENCOUNTER 2023-12-10 11:50 | Outpatient (REF) | payer OTHER, SELFPAY ==
[2023-12-10 12:27] LABS: MANUAL DIFF FLAG NO
[2023-12-10 12:57] LABS: Basophils Absolute Auto 0.1 X10*3/uL (0.0-0.2); Basophils Percent Auto 0.7 % (0-2); Eosinophils Absolute Auto 0.2 X10*3/uL (0.0-0.4); Hematocrit 45.4 % (42.0-52.0); Hemoglobin 15.3 g/dl (14.0-18.0); Imm Gran Abs Auto 0.04 X10*3/uL (0.00-0.03); Imm Gran Pct Auto 0.5 % (0.0-0.4); Lymphocytes Absolute Auto 1.2 X10*3/uL (1.2-4.9); Lymphocytes Percent Auto 15.2 % (20-40); Mean Corpuscular HGB Conc 33.7 g/dl (31.0-36.0); Mean Corpuscular Hemoglobin 32.3 pg (27.0-33.0); Mean Platelet Volume 10.6 fL (9.4-12.4); Monocytes Absolute Auto 0.8 X10*3/uL (0.1-1.2); Monocytes Percent Auto 10.8 % (2-11); Neutrophils Absolute Auto 5.4 x10*3/uL (2.0-8.3); Neutrophils Percent Auto 70.8 % (45-73); Platelet Count 243 X10*3/uL (160-400); Red Blood Count 4.73 X10*6/uL (4.60-5.80); White Blood Count 7.7 X10*3/uL (4.8-10.8)
[2023-12-10 13:34] LABS: Alanine Aminotransferase 23 U/L (0-40); Albumin Level 4.3 g/dL (3.5-5.0); Alkaline Phosphatase 67 U/L (39-117); Anion Gap 18 (12-20); Aspartate Amino Transferase 28 U/L (5-37); Bilirubin Total 0.9 mg/dL (0.0-1.0); Blood Urea Nitrogen 27 mg/dL (9-16); Calcium 11.2 mg/dL (8.4-10.2); Carbon Dioxide 18 mmol/L (22-29); Chloride 106 mmol/L (96-108); Estimated Glomerular Filt Rate 46; Glucose Random 107 mg/dL (60-115); Potassium 4.5 mmol/L (3.3-5.1); Sodium 137 mmol/L (135-145); Total Protein 7.6 g/dL (6.5-8.0)
[2023-12-10 13:37] LABS: Anion Gap 17 (12-20); Blood Urea Nitrogen 27 mg/dL (9-16); Calcium 11.1 mg/dL (8.4-10.2); Carbon Dioxide 19 mmol/L (22-29); Chloride 107 mmol/L (96-108); Estimated Glomerular Filt Rate 46; Potassium 4.6 mmol/L (3.3-5.1); Sodium 138 mmol/L (135-145)
[2023-12-10 13:54] LABS: Vitamin D 25-OH Total 39.2 ng/mL (>30)
[2023-12-11 08:52] LABS: HBc Num1 0.13 S/CO (0.00-0.79); HBsAGNum1 0.23 S/CO (0.00-0.99); Hepatitis B Core Antibody Nonreactive (Nonreactive); Hepatitis B Surface Antigen Negative (Negative)
[2023-12-13 09:53] LABS: Complement C3 168 mg/dL
[2023-12-13 16:09] LABS: Anti DNA DS Antibody 2 IU/mL; Anti Glomerular Basement Memb <1.0 AI; Myeloperoxidase Antibody <1.0 AI; Proteinase 3 PR3 Antibodies <1.0 AI
[2023-12-14 22:23] LABS: IgA 154 mg/dL (70-320); IgG 1135 mg/dL (600-1540); IgM 77 mg/dL (50-300)
[2023-12-15 16:58] LABS: VITAMIN D (1,25 OH) D3 52 pg/mL; Vit D (1,25-Dihydroxy) Total 52 pg/mL (18-72); Vitamin D (1,25 OH) D2 <8 pg/mL
[2023-12-24 14:48] LABS: Phospholipase A2 IgG ELISA <4 RU/mL; Phospholipase A2 IgG IFA NEGATIVE (NEGATIVE)
== END 2023-12-10 11:51 | disposition home or self-care (01) ==
LOC: HO.LAB 11:50
PROVIDERS: Absent Provider Internal Medicine Nephrology; PCP Internal Medicine; Visit Provider Internal Medicine
DX: I10 Essential (primary) hypertension (principal); E21.0 Primary hyperparathyroidism; N17.9 Acute kidney failure, unspecified
CPT/HCPCS: 36415; 80051; 80053; 82306; 82310; 82565; 82652; 82784; 83520; 84520; 85025; 86021; 86160; 86225; 86255; 86334; 86335; 86704; 87340

== ENCOUNTER 2023-12-14 09:29 | Outpatient (AMB) | payer OTHER, SELFPAY ==
[2023-12-14 09:44] LABS: Prothrombin Time Whole Bld POC 48.2 sec (11.1-13.5)
--- NOTE | 2023-12-14 09:53 | MHC.OFFVISCO ---
Intake Intake Visit Reasons: Anticoagulation Allergies No Known Allergies Allergy (Mild, Verified 12/14/23 09:38) NONE Medication List - Last Reconciled 12/14/23 by Eileen Mcdonald RN amlodipine 10 mg PO DAILY aspirin 81 mg PO DAILY dapagliflozin propanediol (Farxiga) 10 mg PO DAILY doxazosin 1 mg PO DAILY doxylamine succinate (Unisom (doxylamine)) 25 mg PO BEDTIME PRN fenofibrate 54 mg PO DAILY furosemide 40 mg PO DAILY hydralazine 25 mg PO BID lisinopril 40 mg PO BID magnesium oxide 400 mg PO DAILY metoprolol succinate ER 50 mg PO DAILY simvastatin 20 mg PO DAILY spironolactone (Aldactone) 25 mg PO DAILY timolol maleate 0.5% 1 drp ophthalmic (eye) DAILY warfarin 1.25 mg See Protocol PO DAILY Nursing Note PT.IS VERY STRESSED(LIKELY CAUSE OF ELEVATED INR TODAY) OVER ELEVATED LABS(BUN,CREATININE) HE DEINED ANY CP,SOB OR SX OF BLEEDING. LISINOPRIL IS DC'D AND PT.HAS STARTED HYDRALAZINE. HOLD WARFARIN TODAY THEN RESUME USUAL DOSE AND FOLLOW-UP IN 2 WEEKS GOOD UNDERSTANDNG OF DOSING INSTR. 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
== END 2023-12-14 09:58 | disposition home or self-care (01) ==
LOC: HO.ACS 09:29
PROVIDERS: PCP Internal Medicine; Visit Provider Internal Medicine
DX: Z79.01 Long term (current) use of anticoagulants (principal)

== ENCOUNTER → 2023-12-14 09:29 | Outpatient (BNVA) | payer OTHER, SELFPAY | PROVIDERS: PCP Internal Medicine; Visit Provider Internal Medicine | DX: I48.20 Chronic atrial fibrillation, unspecified (principal); Z79.01 Long term (current) use of anticoagulants; Z51.81 Encounter for therapeutic drug level monitoring | CPT/HCPCS: 85610; 99211 ==

== ENCOUNTER 2023-12-28 09:50 | Outpatient (AMB) | payer OTHER, SELFPAY ==
[2023-12-28 10:10] LABS: Prothrombin Time Whole Bld POC 40.2 sec (11.1-13.5); ~PT, ~INR - Anti Coag Clinic 3.4 (0.9-1.1)
--- NOTE | 2023-12-28 10:15 | MHC.OFFVISCO ---
Intake Intake Visit Reasons: Anticoagulation Allergies No Known Allergies Allergy (Mild, Verified 12/28/23 10:20) NONE Medication List - Last Reconciled 12/28/23 by Sandra Taylor RN amlodipine 10 mg PO DAILY aspirin 81 mg PO DAILY dapagliflozin propanediol (Farxiga) 10 mg PO DAILY doxazosin 1 mg PO DAILY doxylamine succinate (Unisom (doxylamine)) 25 mg PO BEDTIME PRN fenofibrate 54 mg PO DAILY furosemide 40 mg PO DAILY hydralazine 25 mg PO BID magnesium oxide 400 mg PO DAILY metoprolol succinate ER 50 mg PO DAILY simvastatin 20 mg PO DAILY spironolactone (Aldactone) 25 mg PO DAILY timolol maleate 0.5% 1 drp ophthalmic (eye) DAILY warfarin 1.25 mg See Protocol PO DAILY Nursing Note INR 3.4?out of therapeutic range of 2-3 Medications and supplements reviewed Patient status: stressed due to elevated bun/cr. To have an ultrasound today. Medications or supplements: no changes Diet: usual diet for pt Denies any signs and symptoms of bleeding or clotting or unusual bruising Bleeding, bruising, clotting discussed Nutritional guidance given: to have a serving of greens today Dose: hold today's dose of 1.25mg and then resume usual dose of 1.25mg daily F/U INR Date : pt insists on 4 weeks. Preferred 2 weeks. Patient verbalizing understanding of instructions given. 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
== END 2023-12-28 10:22 | disposition home or self-care (01) ==
LOC: HO.ACS 09:50
PROVIDERS: PCP Internal Medicine; Visit Provider Internal Medicine
DX: Z79.01 Long term (current) use of anticoagulants (principal)

== ENCOUNTER 2023-12-28 10:19 | Outpatient (REF) | payer OTHER, SELFPAY ==
--- NOTE | ~2023-12-28 | US_ITS ---
EXAMINATION: RENAL ARTERY DOPPLER ULTRASOUND CLINICAL INFORMATION: Acute kidney injury, hypertension COMPARISON: CT from 03/06/2022 TECHNIQUE: Renal ultrasound. Doppler ultrasound (spectral analysis and color Doppler) of the renal arteries and aorta were performed. FINDINGS: The right kidney measures 12.1 x 4.3 x 4.1 cm in sagittal, AP and transverse dimensions. The left kidney measures 12.4 x 4.3 x 3.6 cm in sagittal, AP and transverse dimensions. Bilateral kidneys demonstrates diffuse areas of cortical thinning and increased parenchymal echogenicity consistent with chronic medical renal disease. No hydronephrosis is seen bilaterally. There is a anechoic simple cyst in the upper pole of the right kidney measuring 4.2 x 3.8 x 3.8 cm. There is a small are cyst in the lower pole of the right kidney measuring 1.0 x 1.0 x 1.1 cm which contains a small area of thin wall calcification. RENAL ARTERY VELOCITIES: Right: Proximally: 119.3 cm/s. Mid: 52.1 cm/s. Distal: 86.2 cm/s. Left: Proximally: 80.3 cm/s. Mid: 63.0 cm/s. Distally: 84.5 cm/s. SEGMENTAL RESISTIVE INDICES: Right: Upper: 0.77 Mid: 0.73 Lower: 0.77 Left: Upper: 0.80 Mid: 0.78 Lower: 0.79 Mid aortic not visualized due to overlying bowel gas shadowing US/US renal doppler IMPRESSION: 1. Bilateral kidneys demonstrate diffuse cortical thinning and increased parenchymal echogenicity consistent with chronic medical renal disease. No hydronephrosis. 2. Right renal cysts. 3. No evidence of renal artery stenosis. Criteria: NORMAL: Renal artery peak systolic velocities < 180 cm/s. Renal aortic ratio < 3.5 Normal renal size. < 60% STENOSIS: Renal artery peak systolic velocities > 180 cm/s. Renal aortic ratio < 3.5 Renal size <2 cm difference between sides. > 60% STENOSIS Renal artery peak systolic velocities > 180 cm/s. Renal aortic ratio > 3.5 Renal size >2 cm difference between sides. Aortic PSV > 140 cm/s with normal renal artery PSV made over estimate severity. Aortic PSV > 100 cm/s with normal renal artery PSV may underestimate severity. Electronically signed by: Morales Cohen MD 12/28/2023 11:49 AM KATHIE KILPATRICK
== END 2023-12-28 10:20 | disposition home or self-care (01) ==
LOC: HO.US 10:19
PROVIDERS: PCP Internal Medicine; Visit Provider Internal Medicine Nephrology
DX: E83.52 Hypercalcemia (principal); N17.9 Acute kidney failure, unspecified; I10 Essential (primary) hypertension; I48.20 Chronic atrial fibrillation, unspecified; Z51.81 Encounter for therapeutic drug level monitoring; Z79.01 Long term (current) use of anticoagulants
CPT/HCPCS: 76775; 85610; 93975; 99211

== ENCOUNTER 2024-01-12 11:25 | Outpatient (AMB) | payer OTHER, SELFPAY ==
--- NOTE | 2024-01-12 11:49 | HO.NEPHOV_ITS ---
Vital Signs 01/12/24 11:50 Height 5 ft 10 in Weight 215 lb 4 oz BMI 30.9 BP 110/70 Blood Pressure Location Lt brachial Position Sitting Pulse 60 Pulse Source Pulse Oximeter Pulse Oximetry (%) 95 Oxygen Delivery Method Room Air Intake Visit Reasons: 1mon follow up/ Conf Development Coordinator Required: No Accompanied by: Spouse Allergies No Known Allergies Allergy (Mild, Verified 01/12/24 11:50) NONE HPI Comments Details: I had the pleasure of seeing Sumit for CKD and hypercalcemia . He also has been having hyperuricemia as well as hypercalcemia and high PTH. He has been hypertensive for a long time. He had been taking lisinopril 40 mg twice daily. He has H/O heart failure with preserved ejection fraction. He does have significant LVH . ECHO was suspicious of amyloidosis although he was no protienuria or other features for amyloidosis. He is on Farxiga, lasix as well as spironolactone. He has ISAAC and is on CPAP. 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 He has hyperuricemia. He has no H/O renal calculi. He is not taking any uric acid lowering medication. He denies nausea, vomiting, diarrhea, dizziness, edema, PND, orthopnea or orthostatic symptoms. He does not take excess NSAID's. He has no H/O weight loss or malignancy. He is on anticoagulation. He denies epistaxis, hemetemesis, melena, sinusitis or hematuria. 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 HTN (hypertension) Obstructive sleep apnea Obesity Surgical History History of permanent cardiac pacemaker placement Family History Father Diabetes Cancer Mother Cancer Social History Advance Directives Date on File: 11/13/19 Physical Exam Vital Signs: Last Vital Signs Pulse 60 01/12/24 11:50 BP 110/70 01/12/24 11:50 Pulse Ox 95 01/12/24 11:50 Oxygen Delivery Method Room Air 01/12/24 11:50 BMI result Body Mass Index 30.9 Const General: comfortable and no acute distress Orientation/consciousness: patient oriented x3 HEENT Head: Yes normocephalic Mouth: Normal oral and palatal mucosa present Eyes EOM: EOMs intact bilaterally Neck Neck: Yes supple Resp Auscultation: clear to auscultation bilaterally Cardio Jugular venous distension: no JVD Rate: regular rate GI Palpation (GI): Soft to palpation Auscultation: normal bowel sounds General: Yes no CVA tenderness Back/Spine/Pelvis Back: no CVA tenderness Skin General skin exam: no rashes or lesions noted Neuro General: patient oriented x3 and moves all extremities Extrem General: Yes no pedal edema Results Reviewed Nephrology Results: Hgb 15.3 g/dl (14.0-18.0) 12/10/23 WBC 7.7 X10*3/uL (4.8-10.8) 12/10/23 Plt Count 243 X10*3/uL (160-400) 12/10/23 Sodium 138 mmol/L (135-145) 12/10/23 Potassium 4.6 mmol/L (3.3-5.1) 12/10/23 Chloride 107 mmol/L (96-108) 12/10/23 Carbon Dioxide 19 mmol/L (22-29) L 12/10/23 BUN 27 mg/dL (9-16) H 12/10/23 Creatinine 1.45 mg/dL (0.5-1.4) H 12/10/23 Calcium 11.1 mg/dL (8.4-10.2) H 12/10/23 Renal US 12/28/23 Assessment & Plan Assessment & Plan (1) CKD stage 3a, GFR 45-59 ml/min: Code(s): N18.31 - Chronic kidney disease, stage 3a Category: Medical (2) Hypercalcemia: Code(s): E83.52 - Hypercalcemia Category: Medical (3) HTN (hypertension): Code(s): I10 - Essential (primary) hypertension Category: Medical Qualifiers: Hypertension type: primary hypertension Qualified Code(s): I10 - Essential (primary) hypertension Plan Sumit has CKD due to long standing hypertension and vascular disease along with age related loss of renal function. He has been on lisinopril . He likely has primary hyperparathyroidism with hypercalcemia but paraproteinemia needs to be ruled out given his age. I have ordered extensive work up including imaging studies. When he is confirmed to have primary hyperparathyroidism, I plan to start him on cinacalcet. I started him on Allopurinol 100 mg daily. Otherwise he could continue rest of his current medication regimen for now. Answered all questions. F/U given Orders: Orders Creatinine Today E83.52 - Hypercalcemia, N18.31 - Chronic kidney disease, stage 3a Electrolytes Today E83.52 - Hypercalcemia, N18.31 - Chronic kidney disease, stage 3a Calcium Today E83.52 - Hypercalcemia, N18.31 - Chronic kidney disease, stage 3a Parathyroid Hormone Intact 3 Months E83.52 - Hypercalcemia, I10 - Essential (primary) hypertension, N18.31 - Chronic kidney disease, stage 3a Creatinine 3 Months E83.52 - Hypercalcemia, I10 - Essential (primary) hypertension, N18.31 - Chronic kidney disease, stage 3a Blood Urea Nitrogen Today E83.52 - Hypercalcemia, N18.31 - Chronic kidney disease, stage 3a Calcium 3 Months E83.52 - Hypercalcemia, I10 - Essential (primary) hypertension, N18.31 - Chronic kidney disease, stage 3a Electrolytes 3 Months E83.52 - Hypercalcemia, I10 - Essential (primary) hypertension, N18.31 - Chronic kidney disease, stage 3a Blood Urea Nitrogen 3 Months E83.52 - Hypercalcemia, I10 - Essential (primary) hypertension, N18.31 - Chronic kidney disease, stage 3a Medications: New allopurinol 100 mg PO DAILY 90 tabs 3RF Coding Level of Care Code Est Pt Level 4 (50778) Diagnoses CKD stage 3a, GFR 45-59 ml/min N18.31 Hypercalcemia E83.52 Primary hypertension I10 Hypertension type: primary hypertension
[2024-01-12 11:50] VITALS: BP 110/70; PULSE 60; O2SAT 95; BMI 30.9
--- OUTSIDE RECORDS SUMMARY | 2024-01-18 18:08 | XMS_ITS | Continuity of Care Document ---
Author Organization [facility]. If a dditional information is needed, contact Health Information Management at [phone] Address [address] [place] [address] Phone Care Team Providers Care Interactive Account Manager Name Role Phone Unavailable Unavailable Unavailable Unavailable Unavailable Unavailable Unavailable Unavailable Unavailable Problems Hypertensive disorder Onset:29-Mar-2017 Mervat Culp MD Atrial fibrillation Onset:29-Mar-2017 Mervat Culp MD Cellulitis of external ear Onset:29-Mar-2017 Tamia Melendez MD Abdominal pain Onset:29-Mar-2017 Tamia Melendez MD Colitis Onset:29-Mar-2017 Tamia Melendez MD Allergies and Adverse Reactions No Known Allergies(Allergy) Onset: 29-Mar-2017 Medications ciprofloxacin 500 MG Oral Ta blet;500 MILLIGRAM* ORAL BID Start:30-Mar-2017 Comments:500 MG PO BID metroNIDAZOLE 500 MG Oral Ta blet;500 MILLIGRAM* ORAL Q8HR Start:30-Mar-2017 Comments:500 MG PO Q8HR aspirin 81 MG Delayed Releas e Oral Tablet [Aspir-Low];81 MILLIGRAM* ORAL DAILY Start:29-Mar-2017 Comments:81 MG PO DAILY lisinopril 40 MG Oral Tablet [Zestril];40 MILLIGRAM* ORAL DAILY Start:29-Mar-2017 Comments:40 MG PO DAILY 24 HR metoprolol succinate 5 0 MG Extended Release Oral Tablet [Toprol];50 MILLIGRAM* ORAL DAILY Start:29-Mar-2017 Comments:50 MG PO DAILY doxazosin 2 MG Oral Tablet [ Cardura];2 MILLIGRAM* ORAL DAILY Start:29-Mar-2017 Comments:2 MG PO DAILY furosemide 20 MG Oral Tablet ;20 MILLIGRAM* ORAL DAILY Start:29-Mar-2017 Comments:20 MG PO DAILY amLODIPine 10 MG Oral Tablet [Norvasc];10 MILLIGRAM* ORAL DAILY Start:29-Mar-2017 Comments:10 MG PO DAILY simvastatin 20 MG Oral Table t;20 MILLIGRAM* ORAL BEDTIME Start:29-Mar-2017 Comments:20 MG PO BEDTIME warfarin sodium 1 MG Oral Ta blet;1 MILLIGRAM* ORAL DAILY 1800 Start:29-Mar-2017 Comments:1 MG PO DAILY 1800 warfarin sodium 2.5 MG Oral Tablet [Coumadin];2.5 MILLIGRAM* ORAL DAILY 1800 Start:29-Mar-2017 Comments:2.5 MG PO DAILY 1800 Social History Smoking Status Never smoked tobacco Recorded: 29-Mar-2017
== END 2024-01-12 12:17 | disposition home or self-care (01) ==
PROVIDERS: PCP Internal Medicine; Visit Provider Internal Medicine Nephrology
DX: I12.9 Hypertensive chronic kidney disease with stage 1 through stage 4 chronic kidney disease, or unspecified chronic kidney disease (principal); N18.31 Chronic kidney disease, stage 3a; E83.52 Hypercalcemia
CPT/HCPCS: 99214

== ENCOUNTER → 2024-01-12 11:25 | Outpatient (BNVA) | payer OTHER, SELFPAY | PROVIDERS: PCP Internal Medicine; Visit Provider Internal Medicine Nephrology ==

== ENCOUNTER → 2024-01-17 07:52 | Outpatient (REF) | payer OTHER, SELFPAY ==
--- NOTE | ~2024-01-17 | NM_ITS ---
EXAMINATION: NM PARATHYROID SCAN CLINICAL INFORMATION: Primary hyperparathyroidism. COMPARISON: No previous radionuclide parathyroid or thyroid imaging studies are available for comparison. TECHNIQUE: A double radionuclide study of the thyroid bed region and upper chest in multiple projections was performed 4 hours after the oral administration of 1.0 mCi I-123 sodium iodide and immediately following the intravenous administration of 30 mCi Tc-99m sestamibi. Repeat imaging was performed 2 hours later. The iodide images were electronically subtracted from the sestamibi images using different weighting factors. FINDINGS: There is homogeneous uptake of radioiodine throughout both lobes. The thyroid gland appears to be normal in size and shape. There are no focal areas of increased or diminished uptake. Technetium 99m sestamibi images demonstrate homogeneous thyroid activity there is a discrete focus of increased sestamibi activity lateral and posterior to the lower pole of the left thyroid lobe. This persists on the delayed images at 2 hours. No other foci of abnormally increased sestamibi activity are visualized. Computer-generated digital subtraction images show abnormal sestamibi access lateral and posterior to the lower pole of the left thyroid at the site of abnormal sestamibi activity described above. NM/NM parathyroid IMPRESSION: A parathyroid adenoma is visualized lateral and posterior to the lower pole of the left thyroid lobe. No other abnormalities suspicious for additional parathyroid lesions are visualized. There is homogeneous uptake of radioiodine in the thyroid gland which is also normal in size and shape. Electronically signed by: Devan Nascimento MD 01/19/2024 04:42 PM [facility]
[2024-01-17 09:34] LABS: Anion Gap 16 (12-20); Blood Urea Nitrogen 27 mg/dL (9-16); Calcium 10.9 mg/dL (8.4-10.2); Carbon Dioxide 20 mmol/L (22-29); Chloride 106 mmol/L (96-108); Estimated Glomerular Filt Rate 39; Potassium 4.5 mmol/L (3.3-5.1); Sodium 137 mmol/L (135-145)
== END ==
LOC: HO.NUCMED 07:52
PROVIDERS: PCP Internal Medicine; Visit Provider Internal Medicine Nephrology
DX: E21.0 Primary hyperparathyroidism (principal); I12.9 Hypertensive chronic kidney disease with stage 1 through stage 4 chronic kidney disease, or unspecified chronic kidney disease; N18.31 Chronic kidney disease, stage 3a; N17.9 Acute kidney failure, unspecified
CPT/HCPCS: 36415; 78070; 80051; 82310; 82565; 84520; A9500; A9516

== ENCOUNTER 2024-01-28 10:06 | Outpatient (AMB) | payer OTHER, SELFPAY ==
--- OUTSIDE RECORDS SUMMARY | 2024-01-28 10:08 | XMS_ITS | Continuity of Care Document ---
Author Organization [facility]. If a dditional information is needed, contact Health Information Management at [phone] Address [address] [place] [address] Phone Care Team Providers Care Director Of Product Marketing Name Role Phone Unavailable Unavailable Unavailable Unavailable Unavailable Unavailable Unavailable Unavailable Unavailable Problems Atrial fibrillation Onset:29-Mar-2017 Mervat Culp MD Hypertensive disorder Onset:29-Mar-2017 Mervat Culp MD Cellulitis of external ear Onset:29-Mar-2017 Tamia Melendez MD Abdominal pain Onset:29-Mar-2017 Tamia Melendez MD Colitis Onset:29-Mar-2017 Tamia Melendez MD Allergies and Adverse Reactions No Known Allergies(Allergy) Onset: 29-Mar-2017 Medications metroNIDAZOLE 500 MG Oral Ta blet;500 MILLIGRAM* ORAL Q8HR Start:30-Mar-2017 Comments:500 MG PO Q8HR ciprofloxacin 500 MG Oral Ta blet;500 MILLIGRAM* ORAL BID Start:30-Mar-2017 Comments:500 MG PO BID warfarin sodium 1 MG Oral Ta blet;1 MILLIGRAM* ORAL DAILY 1800 Start:29-Mar-2017 Comments:1 MG PO DAILY 1800 24 HR metoprolol succinate 5 0 MG Extended Release Oral Tablet [Toprol];50 MILLIGRAM* ORAL DAILY Start:29-Mar-2017 Comments:50 MG PO DAILY warfarin sodium 2.5 MG Oral Tablet [Coumadin];2.5 MILLIGRAM* ORAL DAILY 1800 Start:29-Mar-2017 Comments:2.5 MG PO DAILY 1800 amLODIPine 10 MG Oral Tablet [Norvasc];10 MILLIGRAM* ORAL DAILY Start:29-Mar-2017 Comments:10 MG PO DAILY aspirin 81 MG Delayed Releas e Oral Tablet [Aspir-Low];81 MILLIGRAM* ORAL DAILY Start:29-Mar-2017 Comments:81 MG PO DAILY lisinopril 40 MG Oral Tablet [Zestril];40 MILLIGRAM* ORAL DAILY Start:29-Mar-2017 Comments:40 MG PO DAILY simvastatin 20 MG Oral Table t;20 MILLIGRAM* ORAL BEDTIME Start:29-Mar-2017 Comments:20 MG PO BEDTIME doxazosin 2 MG Oral Tablet [ Cardura];2 MILLIGRAM* ORAL DAILY Start:29-Mar-2017 Comments:2 MG PO DAILY furosemide 20 MG Oral Tablet ;20 MILLIGRAM* ORAL DAILY Start:29-Mar-2017 Comments:20 MG PO DAILY Social History Smoking Status Never smoked tobacco Recorded: 29-Mar-2017
[2024-01-28 10:13] LABS: Prothrombin Time Whole Bld POC 61.9 sec (11.1-13.5); ~PT, ~INR - Anti Coag Clinic 5.2 (0.9-1.1)
--- NOTE | 2024-01-28 10:22 | MHC.OFFVISCO ---
Intake Intake Visit Reasons: Anticoagulation Allergies No Known Allergies Allergy (Mild, Verified 01/28/24 10:06) NONE Medication List - Last Reconciled 01/28/24 by Dayna Rice RN allopurinol 100 mg PO DAILY amlodipine 10 mg PO DAILY aspirin 81 mg PO DAILY dapagliflozin propanediol (Farxiga) 10 mg PO DAILY doxazosin 1 mg PO DAILY doxylamine succinate (Unisom (doxylamine)) 25 mg PO BEDTIME PRN fenofibrate 54 mg PO DAILY furosemide 40 mg PO DAILY hydralazine 25 mg PO BID magnesium oxide 400 mg PO DAILY metoprolol succinate ER 50 mg PO DAILY simvastatin 20 mg PO DAILY spironolactone (Aldactone) 25 mg PO DAILY timolol maleate 0.5% 1 drp ophthalmic (eye) DAILY warfarin 1.25 mg See Protocol PO DAILY Nursing Note INR 5.2 out of therapeutic range- REFUSED LAB DRAW AT THIS TIME Medications and supplements reviewed Patient status: S/P COLD LAST WEEK STILL STUFFY - TOOK COLD MEDICATION WHILE IN [place] LAST WEEK Medications or supplements: USUAL RX THE SAME Diet: GOOD - STATE HE JUST HAD SPINACH LAST NIGHT Denies any signs and symptoms of bleeding or clotting or unusual bruising Bleeding, bruising, clotting discussed Nutritional guidance given: EAT GREENS TODAY Dose: HOLD WARFARIN X 3 DAYS FRI SAT SUN THEN 1.25MG X 6 DAYS/ WEEK - MAY CONSIDER CHANGING DOSE TO 1MG TAB IN NEAR FUTURE F/U INR Date : REFUSED SOONER APPT 02/04/24 GO TO ER WITH ANY UNUSUAL BLEEDING OR BRUISING OR IF YOUR FALL AND HIT YOUR HEAD OR INJURE YOURSELF ?? Patient verbalizing understanding of instructions given. t/c to PCP office spoke with Stock Patch Sawyer Chanel who will convey msg to PCP of pt status and plan of care Coding Level of Care Code Est Patient Level 1 Diagnoses Current use of anticoagulant therapy Z79.01 Comment T/C TO pcp regarding critical INR Results AMB INR Fingerstick AMB INR Fingerstick 5.2 Last Edit by Dayna Rice RN on 01/28/24 10:16 Assessment & Plan Assessment & Plan (1) Current use of anticoagulant therapy: Code(s): Z79.01 - penitentiary (current) use of anticoagulants Category: Medical
== END 2024-01-28 10:41 | disposition home or self-care (01) ==
LOC: HO.ACS 10:06
PROVIDERS: PCP Internal Medicine; Visit Provider Internal Medicine
DX: Z79.01 Long term (current) use of anticoagulants (principal)

== ENCOUNTER → 2024-01-28 10:06 | Outpatient (BNVA) | payer OTHER, SELFPAY | PROVIDERS: PCP Internal Medicine; Visit Provider Internal Medicine | DX: I48.20 Chronic atrial fibrillation, unspecified (principal); Z79.01 Long term (current) use of anticoagulants; Z51.81 Encounter for therapeutic drug level monitoring | CPT/HCPCS: 85610; 99211 ==

== ENCOUNTER 2024-02-04 10:16 | Outpatient (AMB) | payer OTHER, SELFPAY ==
--- OUTSIDE RECORDS SUMMARY | 2024-02-04 10:17 | XMS_ITS | Continuity of Care Document ---
Author Organization [facility]. If a dditional information is needed, contact Health Information Management at [phone] Address [address] [place] [address] Phone Care Team Providers Care Keno Writer / Runner Name Role Phone Unavailable Unavailable Unavailable Unavailable [...]
[2024-02-04 10:28] LABS: Prothrombin Time Whole Bld POC 18.9 sec (11.1-13.5); ~PT, ~INR - Anti Coag Clinic 1.6 (0.9-1.1)
--- NOTE | 2024-02-04 10:38 | MHC.OFFVISCO ---
Intake Intake Visit Reasons: Anticoagulation Allergies No Known Allergies Allergy (Mild, Verified 02/04/24 10:19) NONE Medication List - Last Reconciled 02/04/24 by Sandra Hicks RN allopurinol 100 mg PO DAILY amlodipine 10 mg PO DAILY aspirin 81 mg PO DAILY dapagliflozin propanediol (Farxiga) 10 mg PO DAILY doxazosin 1 mg PO DAILY doxylamine succinate (Unisom (doxylamine)) 25 mg PO BEDTIME PRN fenofibrate 54 mg PO DAILY furosemide 40 mg PO DAILY hydralazine 25 mg PO BID magnesium oxide 400 mg PO DAILY metoprolol succinate ER 50 mg PO DAILY simvastatin 20 mg PO DAILY spironolactone (Aldactone) 25 mg PO DAILY timolol maleate 0.5% 1 drp ophthalmic (eye) DAILY warfarin 1.25 mg See Protocol PO DAILY Nursing Note Amb to [facility] feeling better has had a cold Last visit 01/27 INR was 5.2 pt did not return to [facility] earlier than today as busy medications reviewed, held warfarin as instructed x 3 days no other medicine changes, indicated he had spinach cooked for a couple days along with lots of other greens denies any unusual signs or symptoms of bruising, bleeding, or clotting INR 1.6 below therapeutic range Dose: increase dose today and tomorrow to 2.5mg then resume usual dosing 1.25mg daily no greens x 2 days then eat healthy balanced diet and be consistent, discussed at length with pt the power of different greens at lowering INR F/U INR recommended Wednesday or Wednesday next week, sts I can't then recommended or Wednesday I can't as I will be away in [place] for the New Year Pt agreed to Monday 02/13 Coding Level of Care Code Est Patient Level 1 Diagnoses Current use of anticoagulant therapy Z79.01 Time Spent (min) 20 Assessment & Plan Assessment & Plan (1) Current use of anticoagulant therapy: Code(s): Z79.01 - care home (current) use of anticoagulants Category: Medical
== END 2024-02-04 12:52 | disposition home or self-care (01) ==
LOC: HO.ACS 10:16
PROVIDERS: PCP Internal Medicine; Visit Provider Internal Medicine
DX: Z79.01 Long term (current) use of anticoagulants (principal)

== ENCOUNTER → 2024-02-04 10:16 | Outpatient (BNVA) | payer OTHER, SELFPAY | PROVIDERS: PCP Internal Medicine; Visit Provider Internal Medicine | DX: I48.20 Chronic atrial fibrillation, unspecified (principal); Z79.01 Long term (current) use of anticoagulants; Z51.81 Encounter for therapeutic drug level monitoring | CPT/HCPCS: 85610; 99211 ==

== ENCOUNTER 2024-02-14 09:35 | Outpatient (AMB) | payer OTHER, SELFPAY ==
[2024-02-14 09:42] LABS: Prothrombin Time Whole Bld POC 28.4 sec (11.1-13.5); ~PT, ~INR - Anti Coag Clinic 2.4 (0.9-1.1)
--- NOTE | 2024-02-14 09:44 | MHC.OFFVISCO ---
Intake Intake Visit Reasons: Anticoagulation Allergies No Known Allergies Allergy (Mild, Verified 02/14/24 09:37) NONE Medication List - Last Reconciled 02/14/24 by Sandra Taylor, GOLDEN allopurinol 100 mg PO DAILY amlodipine 10 mg PO DAILY aspirin 81 mg PO DAILY dapagliflozin propanediol (Farxiga) 10 mg PO DAILY doxazosin 1 mg PO DAILY doxylamine succinate (Unisom (doxylamine)) 25 mg PO BEDTIME PRN fenofibrate 54 mg PO DAILY furosemide 40 mg PO DAILY hydralazine 25 mg PO BID magnesium oxide 400 mg PO DAILY metoprolol succinate ER 50 mg PO DAILY simvastatin 20 mg PO DAILY spironolactone (Aldactone) 25 mg PO DAILY timolol maleate 0.5% 1 drp ophthalmic (eye) DAILY warfarin 1.25 mg See Protocol PO DAILY Nursing Note INR: 2.4 in therapeutic range of 2-3 Medications and supplements reviewed No changes in health, diet, medications, or supplements, Denies any signs and symptoms of bleeding or bruising or clotting. Bleeding, bruising, clotting discussed Nutritional guidance given Dose: 1.25mg daily F/U INR: 4 weeks Patient verbalizes understanding of instructions given Coding Level of Care Code Est Patient Level 1 Diagnoses Current use of anticoagulant therapy Z79.01 Assessment & Plan Assessment & Plan (1) Current use of anticoagulant therapy: Code(s): Z79.01 - terminal worker (current) use of anticoagulants Category: Medical
== END 2024-02-14 09:48 | disposition home or self-care (01) ==
LOC: HO.ACS 09:35
PROVIDERS: PCP Internal Medicine; Visit Provider Internal Medicine
DX: Z79.01 Long term (current) use of anticoagulants (principal)

== ENCOUNTER → 2024-02-14 09:35 | Outpatient (BNVA) | payer OTHER, SELFPAY | PROVIDERS: PCP Internal Medicine; Visit Provider Internal Medicine | DX: I48.20 Chronic atrial fibrillation, unspecified (principal); Z79.01 Long term (current) use of anticoagulants; Z51.81 Encounter for therapeutic drug level monitoring | CPT/HCPCS: 85610; 99211 ==

== ENCOUNTER → 2024-02-23 23:59 | Outpatient (BNV) | payer OTHER, SELFPAY ==
--- NOTE | 2024-02-25 16:19 | A.OFFVIS_ITS ---
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 Pacemaker function is adequate [id number] Cardiac Device Interrogation, pacemaker Procedure code (CPT) selection complete Assessment & Plan Assessment & Plan (1) Cardiac pacemaker in situ: Comment: single-chamber [place] pacemaker in place for bradycardia Code(s): Z95.0 - Presence of cardiac pacemaker Category: Medical Plan: See above Coding Level of Care Code Procedure Only Diagnoses Cardiac pacemaker in situ Z95.0 CPT Codes Cardiac Device Check - Cardiac Device 12: [id number] Cardiac Device Inter rogation, pacemaker ([id number])
== END ==
PROVIDERS: PCP Internal Medicine; Visit Provider Internal Medicine Cardiovascular Disease
DX: R00.1 Bradycardia, unspecified (principal); Z95.0 Presence of cardiac pacemaker
CPT/HCPCS: 93294

== ENCOUNTER → 2024-03-13 12:27 | Outpatient (BNVA) | payer OTHER, SELFPAY | PROVIDERS: PCP Internal Medicine; Visit Provider Internal Medicine Cardiovascular Disease | DX: I48.20 Chronic atrial fibrillation, unspecified (principal); Z51.81 Encounter for therapeutic drug level monitoring; Z79.01 Long term (current) use of anticoagulants | CPT/HCPCS: 85610; 99211 ==

== ENCOUNTER 2024-03-13 13:33 | Outpatient (AMB) | payer OTHER, SELFPAY ==
[2024-03-13 13:49] LABS: ~PT, ~INR - Anti Coag Clinic 2.8 (0.9-1.1)
--- NOTE | 2024-03-13 13:51 | MHC.OFFVISCO ---
Intake Intake Visit Reasons: Anticoagulation Allergies No Known Allergies Allergy (Mild, Verified 03/13/24 13:42) NONE Medication List - Last Reconciled 03/13/24 by Sandra Taylor, RN allopurinol 100 mg PO DAILY amlodipine 10 mg PO DAILY aspirin 81 mg PO DAILY dapagliflozin propanediol (Farxiga) 10 mg PO DAILY doxazosin 1 mg PO DAILY doxylamine succinate (Unisom (doxylamine)) 25 mg PO BEDTIME PRN fenofibrate 54 mg PO DAILY furosemide 40 mg PO DAILY hydralazine 25 mg PO BID magnesium oxide 400 mg PO DAILY metoprolol succinate ER 50 mg PO DAILY simvastatin 20 mg PO DAILY spironolactone (Aldactone) 25 mg PO DAILY timolol maleate 0.5% 1 drp ophthalmic (eye) DAILY warfarin 1.25 mg See Protocol PO DAILY Nursing Note INR: 2.8 in therapeutic range 2-3 Medications and supplements reviewed. Pt states he was on Cephalexin last week for an infected site on left neck from excision of skin lesion. He did not notify [facility]. This med can raise the INR, onset not specific. No changes in health, diet, medications, or supplements, Denies any signs and symptoms of bleeding or bruising or clotting. Bleeding, bruising, clotting discussed Nutritional guidance given Dose: 1.25mg daily F/U INR: 4 weeks preferred, pt insists on 6 weeks Patient verbalizes understanding of instructions with read back given Coding Level of Care Code Est Patient Level 1 Diagnoses Current use of anticoagulant therapy Z79.01 Assessment & Plan Assessment & Plan (1) Current use of anticoagulant therapy: Code(s): Z79.01 - long term care administrator (current) use of anticoagulants Category: Medical
== END 2024-03-13 14:01 | disposition home or self-care (01) ==
LOC: HO.ACS 13:33
PROVIDERS: PCP Internal Medicine; Visit Provider Internal Medicine
DX: Z79.01 Long term (current) use of anticoagulants (principal)

== ENCOUNTER 2024-03-17 10:41 | Outpatient (REF) | payer OTHER, SELFPAY ==
[2024-03-17 10:55] LABS: MANUAL DIFF FLAG NO
[2024-03-17 11:33] LABS: Basophils Absolute Auto 0.1 X10*3/uL (0.0-0.2); Eosinophils Absolute Auto 0.3 X10*3/uL (0.0-0.4); Eosinophils Percent Auto 4.1 % (0-4); Hematocrit 51.7 % (42.0-52.0); Hemoglobin 17.2 g/dl (14.0-18.0); Imm Gran Abs Auto 0.03 X10*3/uL (0.00-0.03); Imm Gran Pct Auto 0.4 % (0.0-0.4); Lymphocytes Percent Auto 12.9 % (20-40); Mean Corpuscular HGB Conc 33.3 g/dl (31.0-36.0); Mean Corpuscular Hemoglobin 32.2 pg (27.0-33.0); Mean Corpuscular Volume 96.8 fL (80.0-98.0); Mean Platelet Volume 10.5 fL (9.4-12.4); Monocytes Absolute Auto 0.7 X10*3/uL (0.1-1.2); Neutrophils Absolute Auto 5.7 x10*3/uL (2.0-8.3); Neutrophils Percent Auto 72.6 % (45-73); Platelet Count 187 X10*3/uL (160-400); Red Blood Count 5.34 X10*6/uL (4.60-5.80); Red Cell Distribution Width 14.6 % (11.0-16.0); White Blood Count 7.8 X10*3/uL (4.8-10.8)
--- OUTSIDE RECORDS SUMMARY | 2024-03-17 11:45 | XMS_ITS | Continuity of Care Document ---
Author Organization [facility]. If a dditional information is needed, contact Health Information Management at [phone] Address [address] [place] [address] Phone Care Team Providers Care Shirt Ironer Supervisor Name Role Phone Unavailable Unavailable Unavailable Unavailable [...] ORAL Q8HR Start:30-Mar-2017 Comments:500 MG PO Q8HR ECOTRIN;81 MILLIGRAM* ORAL D AILY Start:29-Mar-2017 Comments:81 MG PO DAILY lisinopril 40 [...]
[2024-03-17 12:14] LABS: Alanine Aminotransferase 27 U/L (0-40); Albumin Level 4.5 g/dL (3.5-5.0); Alkaline Phosphatase 71 U/L (39-117); Anion Gap 12 (12-20); Aspartate Amino Transferase 32 U/L (5-37); Bilirubin Total 0.7 mg/dL (0.0-1.0); Blood Urea Nitrogen 19 mg/dL (9-16); Calcium 10.7 mg/dL (8.4-10.2); Carbon Dioxide 22 mmol/L (22-29); Chloride 107 mmol/L (96-108); Estimated Glomerular Filt Rate 52; Glucose Random 146 mg/dL (60-115); Potassium 4.6 mmol/L (3.3-5.1); Sodium 136 mmol/L (135-145); Uric Acid 7.2 mg/dL (3.4-7.0)
[2024-03-17 12:26] LABS: Appearance Urine Clear; Color Urine Yellow; Glucose Urine UA >=1000 mg/dL (Negative); Leukocyte Esterase Urine Negative (Negative); Nitrite Urine Negative (Negative); PH 6.5 (5.0-9.0); Specific Gravity - Urine 1.015 (1.005-1.025); UMIC TRIGGER UA YES; Urine Blood Negative (Negative); Urine Ketones Negative (Negative); Urine Protein Negative (Neg-Trace)
[2024-03-17 12:40] LABS: Bacteria Urine None Seen (None Seen); Hyaline Casts Urine 0-2 /LPF (0-2); RBC Urine 0-2 /HPF (0-2); Squamous Epithelial Cell Urine 0-2 /HPF (0-2); WBC Urine 0-5 /HPF (0-5)
== END 2024-03-17 10:42 | disposition home or self-care (01) ==
LOC: HO.LAB 10:41
PROVIDERS: PCP Internal Medicine; Visit Provider Internal Medicine
DX: I10 Essential (primary) hypertension (principal); I25.10 Atherosclerotic heart disease of native coronary artery without angina pectoris
CPT/HCPCS: 36415; 80053; 81001; 81003; 84550; 85025

== ENCOUNTER 2024-04-07 09:40 | Outpatient (REF) | payer OTHER, SELFPAY ==
--- OUTSIDE RECORDS SUMMARY | 2024-04-07 10:26 | XMS_ITS | Continuity of Care Document ---
Author Organization [facility]. If a dditional information is needed, contact Health Information Management at [phone] Address [address] [place] [address] Phone Care Team Providers Care Associate Pathologist Name Role Phone Unavailable Unavailable Unavailable Unavailable Unavailable Unavailable Unavailable Unavailable Unavailable Problems Hypertensive disorder Onset:29-Mar-2017 Mervat Culp MD Atrial fibrillation Onset:29-Mar-2017 Mervat Culp MD Cellulitis of external ear Onset:29-Mar-2017 Tamia Melendez MD Colitis Onset:29-Mar-2017 Tamia Melendez MD Abdominal pain Onset:29-Mar-2017 Tamia Melendez MD Allergies and Adverse [...]
[2024-04-07 10:29] LABS: Estimated Average Glucose 134 mg/dL; Hemoglobin A1c % 6.3 % (<6.0); Total Hemoglobin (HGBA1C) 4162.7088 umol/L
[2024-04-07 11:06] LABS: Alanine Aminotransferase 24 U/L (0-40); Albumin Level 4.4 g/dL (3.5-5.0); Alkaline Phosphatase 70 U/L (39-117); Anion Gap 13 (12-20); Aspartate Amino Transferase 24 U/L (5-37); Blood Urea Nitrogen 26 mg/dL (9-16); Calcium 10.8 mg/dL (8.4-10.2); Carbon Dioxide 22 mmol/L (22-29); Chloride 107 mmol/L (96-108); Estimated Glomerular Filt Rate 47; Glucose Random 202 mg/dL (60-115); Potassium 4.2 mmol/L (3.3-5.1); Sodium 138 mmol/L (135-145); Total Protein 7.9 g/dL (6.5-8.0)
== END 2024-04-07 09:41 | disposition home or self-care (01) ==
LOC: HO.LAB 09:40
PROVIDERS: Absent Provider Internal Medicine Nephrology; PCP Internal Medicine; Visit Provider Internal Medicine
DX: E11.9 Type 2 diabetes mellitus without complications (principal); I10 Essential (primary) hypertension; N18.9 Chronic kidney disease, unspecified
CPT/HCPCS: 36415; 80053; 83036

== ENCOUNTER 2024-04-12 11:06 | Outpatient (AMB) | payer OTHER, SELFPAY ==
--- NOTE | 2024-04-12 11:31 | HO.NEPHOV ---
Vital Signs 04/12/24 11:32 Height 5 ft 10 in Weight 212 lb 2 oz BMI 30.4 BP 114/70 Blood Pressure Location Rt brachial Position Sitting Pulse 45 L Pulse Source Pulse Oximeter Pulse Oximetry (%) 96 Oxygen Delivery Method Room Air Intake Visit Reasons: CKD-Conf Residence Manager Required: No Accompanied by: Spouse Allergies No Known Allergies Allergy (Mild, Verified 04/12/24 11:32) NONE HPI Comments Details: Sumit was seen for CKD and hypercalcemia . He also has been having hyperuricemia as well as hypercalcemia and high PTH. He has been hypertensive for a long time. He had been taking lisinopril 40 mg twice daily. He has H/O heart failure with preserved ejection fraction. He does have significant LVH . ECHO was suspicious of amyloidosis although he was no protienuria or other features for amyloidosis. He is on Farxiga, lasix as well as spironolactone. He has ISAAC and is on CPAP. He has hyperuricemia. He has no H/O renal calculi. He denies nausea, vomiting, diarrhea, dizziness, edema, PND, orthopnea or orthostatic symptoms. He does not take excess NSAID's. He has no H/O weight loss or malignancy. He is on anticoagulation. He denies epistaxis, hemetemesis, melena, sinusitis or hematuria. 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 HTN (hypertension) Obstructive sleep apnea Obesity Surgical History History of permanent cardiac pacemaker placement Family History Father Diabetes Cancer Mother Cancer Social History Advance Directives Date on File: 11/13/19 Review of Systems Const All systems reviewed & are unremarkable except as noted in HPI and below Physical Exam Vital Signs: Last Vital Signs Pulse 45 L 04/12/24 11:32 BP 114/70 04/12/24 11:32 Pulse Ox 96 04/12/24 11:32 Oxygen Delivery Method Room Air 04/12/24 11:32 BMI result Body Mass Index 30.4 Const General: comfortable and no acute distress Orientation/consciousness: patient oriented x3 HEENT Head: Yes normocephalic Mouth: Normal oral and palatal mucosa present Eyes EOM: EOMs intact bilaterally Neck Neck: Yes supple Resp Auscultation: clear to auscultation bilaterally Cardio Jugular venous distension: no JVD Rate: regular rate GI Palpation (GI): Soft to palpation Auscultation: normal bowel sounds General: Yes no CVA tenderness Back/Spine/Pelvis Back: no CVA tenderness Skin General skin exam: no rashes or lesions noted Neuro General: patient oriented x3 and moves all extremities Extrem General: Yes no pedal edema Results Reviewed Nephrology Results: Hgb 17.2 g/dl (14.0-18.0) 03/17/24 WBC 7.8 X10*3/uL (4.8-10.8) 03/17/24 Plt Count 187 X10*3/uL (160-400) 03/17/24 Sodium 138 mmol/L (135-145) 04/07/24 Potassium 4.2 mmol/L (3.3-5.1) 04/07/24 Chloride 107 mmol/L (96-108) 04/07/24 Carbon Dioxide 22 mmol/L (22-29) 04/07/24 BUN 26 mg/dL (9-16) H 04/07/24 Creatinine 1.43 mg/dL (0.5-1.4) H 04/07/24 Calcium 10.8 mg/dL (8.4-10.2) H 04/07/24 Urine Protein Negative mg/dL (Neg-Trace) 03/17/24 Assessment & Plan Assessment & Plan (1) CKD stage 3a, GFR 45-59 ml/min: Code(s): N18.31 - Chronic kidney disease, stage 3a Category: Medical (2) Hypercalcemia: Code(s): E83.52 - Hypercalcemia Category: Medical (3) Renal cyst, right: Code(s): N28.1 - Cyst of kidney, acquired Category: Medical (4) Primary hyperparathyroidism: Code(s): E21.0 - Primary hyperparathyroidism Category: Medical (5) HTN (hypertension): Code(s): I10 - Essential (primary) hypertension Category: Medical Qualifiers: Hypertension type: primary hypertension Qualified Code(s): I10 - Essential (primary) hypertension Plan Sumit has CKD due to long standing hypertension and vascular disease along with age related loss of renal function. He has been on lisinopril . He has primary hyperparathyroidism with hypercalcemia which was confirmed by imaging. I have ordered extensive work up including imaging studies. He may need cinacalcet in the future. He can continue Allopurinol 100 mg daily. He could continue rest of his current medication regimen for now. Answered all questions. F/U given Orders: Orders Creatinine 6 Months E21.0 - Primary hyperparathyroidism, E83.52 - Hypercalcemia, N18.31 - Chronic kidney disease, stage 3a Blood Urea Nitrogen 6 Months E21.0 - Primary hyperparathyroidism, E83.52 - Hypercalcemia, N18.31 - Chronic kidney disease, stage 3a Parathyroid Hormone Intact 6 Months E21.0 - Primary hyperparathyroidism, E83.52 - Hypercalcemia, N18.31 - Chronic kidney disease, stage 3a Electrolytes 6 Months E21.0 - Primary hyperparathyroidism, E83.52 - Hypercalcemia, N18.31 - Chronic kidney disease, stage 3a Calcium 6 Months E21.0 - Primary hyperparathyroidism, E83.52 - Hypercalcemia, N18.31 - Chronic kidney disease, stage 3a Coding Level of Care Code Est Pt Level 4 (49115) Diagnoses CKD stage 3a, GFR 45-59 ml/min N18.31 Hypercalcemia E83.52 Renal cyst, right N28.1 Primary hyperparathyroidism E21.0 Primary hypertension I10 Hypertension type: primary hypertension
[2024-04-12 11:32] VITALS: BP 114/70; PULSE 45; O2SAT 96; BMI 30.4
--- OUTSIDE RECORDS SUMMARY | 2024-04-12 13:25 | XMS_ITS | Continuity of Care Document ---
Author Organization [facility]. If a dditional information is needed, contact Health Information Management at [phone] Address [address] [place] [address] Phone Care Team Providers Care Continuity Manager Name Role Phone Unavailable Unavailable Unavailable [...]
== END 2024-04-12 12:09 | disposition home or self-care (01) ==
PROVIDERS: PCP Internal Medicine; Visit Provider Internal Medicine Nephrology
DX: N18.31 Chronic kidney disease, stage 3a (principal); N28.1 Cyst of kidney, acquired; E21.0 Primary hyperparathyroidism; I10 Essential (primary) hypertension
CPT/HCPCS: 99214

== ENCOUNTER 2024-04-26 09:37 | Outpatient (AMB) | payer OTHER, SELFPAY ==
[2024-04-26 09:59] LABS: Prothrombin Time Whole Bld POC 50.8 sec (11.1-13.5); ~PT, ~INR - Anti Coag Clinic 4.2 (0.9-1.1)
--- NOTE | 2024-04-26 09:59 | MHC.OFFVISCO ---
Intake Intake Visit Reasons: Anticoagulation Allergies No Known Allergies Allergy (Mild, Verified 04/26/24 09:49) NONE Medication List - Last Reconciled 04/26/24 by Larisa Freeman RN allopurinol 100 mg PO DAILY amlodipine 10 mg PO BID aspirin 81 mg PO DAILY dapagliflozin propanediol (Farxiga) 10 mg PO DAILY doxazosin 1 mg PO DAILY doxylamine succinate (Unisom (doxylamine)) 25 mg PO BEDTIME PRN fenofibrate 54 mg PO DAILY furosemide 40 mg PO DAILY hydralazine 25 mg PO BID magnesium oxide 400 mg PO DAILY metoprolol succinate ER 50 mg PO DAILY simvastatin 20 mg PO DAILY spironolactone (Aldactone) 25 mg PO DAILY timolol maleate 0.5% 1 drp ophthalmic (eye) DAILY warfarin 1.25 mg See Protocol PO DAILY Nursing Note INR 4.2-? out of therapeutic range of 2-3 Medications and supplements reviewed Patient status: denies etoh, c.o stress Medications or supplements: reviewed with no changes Diet: appetite good Denies any signs and symptoms of bleeding or clotting or unusual bruising Bleeding, bruising, clotting discussed Nutritional guidance given: eat dark, cooked greens to lower, no reds for 2-3 days Dose: hold today then 1.25mg x 7 F/U INR Date : 1 week?? Patient verbalizing understanding of instructions given. 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
--- OUTSIDE RECORDS SUMMARY | 2024-04-26 10:43 | XMS_ITS | Continuity of Care Document ---
Author Organization [facility]. If a dditional information is needed, contact Health Information Management at [phone] Address [address] [place] [address] Phone Care Team Providers Care School Business Manager Name Role Phone Unavailable Unavailable Unavailable [...]
== END 2024-04-26 10:39 | disposition home or self-care (01) ==
LOC: HO.ACS 09:37
PROVIDERS: PCP Internal Medicine; Visit Provider Internal Medicine Medical Oncology
DX: Z79.01 Long term (current) use of anticoagulants (principal)

== ENCOUNTER → 2024-04-26 09:37 | Outpatient (BNVA) | payer OTHER, SELFPAY | PROVIDERS: PCP Internal Medicine; Visit Provider Internal Medicine Medical Oncology | DX: I48.20 Chronic atrial fibrillation, unspecified (principal); Z51.81 Encounter for therapeutic drug level monitoring; Z79.01 Long term (current) use of anticoagulants | CPT/HCPCS: 85610; 99211 ==

== ENCOUNTER → 2024-05-01 10:47 | Outpatient (REF) | payer OTHER, SELFPAY ==
--- NOTE | 2024-05-01 10:52 | CA_ITS ---
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 Low normal LV ejection fraction 50-55% with mild LVH with moderate asymmetric septal hypertrophy 2. Mildly dilated right ventricle with mildly to moderately reduced RV systolic function 3. Severe left atrial and moderate right atrial enlargement 4. Normal RV systolic pressure 5. No gross pericardial effusion Findings Procedure Information The quality of the study was technically difficult. The study quality is limited by patients body habitus and lung artifact. Left Ventricle Normal left ventricular cavity size. There is mildly increased left ventricular wall thickness. The left ventricular systolic function is low normal. The visually estimated ejection fraction is between 50-55%. There is paradoxical septal motion consistent with a right ventricular pacemaker. There is moderate septal asymmetric hypertrophy. Right Ventricle Mildly increased right ventricular cavity size. There is mild to moderately decreased right ventricular systolic function. There is a pacemaker wire seen in the right ventricle. Atria The left atrium is severely dilated. There is no evidence of interatrial shunt. The right atrium is moderately dilated. A pacemaker wire is identified in the right atrium. Aortic Valve The aortic valve was not well visualized. There is no aortic valve stenosis. There is no aortic valve regurgitation. Mitral Valve There is mild anterior and posterior mitral leaflet thickening. There is mild mitral valve regurgitation. There is no mitral valve stenosis. Pulmonic Valve The pulmonic valve was not well visualized. Tricuspid Valve Likely normal tricuspid valve structure and function. There is mild tricuspid valve regurgitation. The right ventricular systolic pressure is normal. The right ventricular systolic pressure is 29 mmHg. Normal right atrial pressure. There is no evidence of pulmonary hypertension. Great Vessels The aorta was not well visualized. The pulmonary artery was not well visualized. Venous The inferior vena cava is normal in size. Pericardium/Pleural There is no evidence of pericardial effusion. Prior Study Comparison Changes noted compared to prior study dated: 08/19/2022. LV ejection fraction in his marginally reduced Measurements 2D Linear Measurements IVSd: 1.69 0.6-0.9/0.6-1.0 cm LVIDd: 5.06 3.9-5.3/4.2-5.9 cm LVIDd Index: 2.33 2.4-3.2/2.2-3.1 cm/m2 LVIDs: 3.63 2.0-3.6 cm LVPWd: 1.07 0.7-1.1 cm LA Diam: 6.00 2.7-3.8/3.0-4.0 cm LAIDs Index: 2.76 1.5-2.3 cm/m2 LV Mass: 362.60 67-162/88-224 g LV Mass Index: 167.10 43-95/49-115 g/m2 LVOT Diam: 2.10 3.0+(-)1.3 cm Mitral Valve MV Pk E: 0.53 Aortic Valve AoV Pk Ruben: 0.85 AoV Pk Grad: 3.00 ALEYDA: 2.98 LVOT LVOT Pk Ruben: 0.73 LVOT Mn Ruben: 0.53 LVOT VTI: 0.15 LVOT Pk Grad: 2.00 LVOT Mn Grad: 1.00 LVOT Diam: 2.10 LVOT Area: 3.46 Diastolic Function MV Pk E: 0.53 Right Ventricle TAPSE (mm): 13.70 TVS' Ruben: 8.70 Tricuspid Valve TR Pk Ruben: 2.54 TR Pk Grad: 26.00 RA Press: 3.00 RVSP: 29.00 Great Vessels Aorta Sinus of Valsalva: 3.70 2.0-3.5 cm Ao Asc: 4.10 2.1-3.4 cm Updated in Other Vendor System with Status of Final Nish Devine MD electronically signed on 05/02/2024 2:56:55 PM with status of Final
== END ==
LOC: HO.CARD 10:47
PROVIDERS: PCP Internal Medicine; Visit Provider Internal Medicine Cardiovascular Disease
DX: I50.30 Unspecified diastolic (congestive) heart failure (principal)
CPT/HCPCS: 93306

== ENCOUNTER → 2024-05-01 10:52 | Outpatient (BNV) | payer OTHER, SELFPAY | PROVIDERS: PCP Internal Medicine; Visit Provider Internal Medicine Cardiovascular Disease | DX: I50.40 Unspecified combined systolic (congestive) and diastolic (congestive) heart failure (principal); I42.2 Other hypertrophic cardiomyopathy; I51.7 Cardiomegaly; Z95.0 Presence of cardiac pacemaker | CPT/HCPCS: 93306 ==

== ENCOUNTER 2024-05-03 09:49 | Outpatient (AMB) | payer OTHER, SELFPAY ==
[2024-05-03 09:58] LABS: Prothrombin Time Whole Bld POC 29.3 sec (11.1-13.5); ~PT, ~INR - Anti Coag Clinic 2.4 (0.9-1.1)
--- NOTE | 2024-05-03 10:02 | MHC.OFFVISCO ---
Intake Intake Visit Reasons: Anticoagulation Allergies No Known Allergies Allergy (Mild, Verified 05/03/24 09:52) NONE Medication List - Last Reconciled 05/03/24 by Eileen Mcdonald RN allopurinol 100 mg PO DAILY amlodipine 10 mg PO BID aspirin 81 mg PO DAILY dapagliflozin propanediol (Farxiga) 10 mg PO DAILY doxazosin 1 mg PO DAILY doxylamine succinate (Unisom (doxylamine)) 25 mg PO BEDTIME PRN fenofibrate 54 mg PO DAILY furosemide 40 mg PO DAILY hydralazine 25 mg PO BID magnesium oxide 400 mg PO DAILY metoprolol succinate ER 50 mg PO DAILY simvastatin 20 mg PO DAILY spironolactone (Aldactone) 25 mg PO DAILY timolol maleate 0.5% 1 drp ophthalmic (eye) DAILY warfarin 1.25 mg See Protocol PO DAILY Nursing Note NO CP,SOB,DIET/MED CHANGES,FALLS OR SX OF BLEEDING. CONTINUE PRESENT DOSING AND FOLLOW-UP IN 5 WEEKS. GOOD UNDERSTANDING OF DOSING INSTR. 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
--- OUTSIDE RECORDS SUMMARY | 2024-05-03 11:04 | XMS_ITS | Continuity of Care Document ---
Author Organization [facility]. If a dditional information is needed, contact Health Information Management at [phone] Address [address] [place] [address] Phone Care Team Providers Care Pit Supervisor Name Role Phone Unavailable Unavailable Unavailable [...]
== END 2024-05-03 10:04 | disposition home or self-care (01) ==
LOC: HO.ACS 09:49
PROVIDERS: PCP Internal Medicine; Visit Provider Internal Medicine Medical Oncology
DX: Z79.01 Long term (current) use of anticoagulants (principal)

== ENCOUNTER → 2024-05-03 09:49 | Outpatient (BNVA) | payer OTHER, SELFPAY | PROVIDERS: PCP Internal Medicine; Visit Provider Internal Medicine Medical Oncology | DX: I48.20 Chronic atrial fibrillation, unspecified (principal); Z51.81 Encounter for therapeutic drug level monitoring; Z79.01 Long term (current) use of anticoagulants | CPT/HCPCS: 85610; 99211 ==

== ENCOUNTER → 2024-05-24 23:59 | Outpatient (BNV) | payer OTHER, SELFPAY ==
--- NOTE | 2024-05-26 11:48 | A.OFFVIS_ITS ---
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 Pacemaker function is adequate [id number] Cardiac Device Interrogation, pacemaker Procedure code (CPT) selection complete Assessment & Plan Assessment & Plan (1) Cardiac pacemaker in situ: Comment: single-chamber [facility] pacemaker in place for bradycardia Code(s): Z95.0 - Presence of cardiac pacemaker Category: Medical Plan: See above Coding Level of Care Code Procedure Only Diagnoses Cardiac pacemaker in situ Z95.0 CPT Codes Cardiac Device Check - Cardiac Device 12: [id number] Cardiac Device Inter rogation, pacemaker ([id number])
== END ==
PROVIDERS: PCP Internal Medicine; Visit Provider Internal Medicine Cardiovascular Disease
DX: R00.1 Bradycardia, unspecified (principal); Z95.0 Presence of cardiac pacemaker
CPT/HCPCS: 93294

== ENCOUNTER 2024-06-06 12:40 | Outpatient (AMB) | payer OTHER, SELFPAY ==
[2024-06-06 12:47] VITALS: BP 112/72; PULSE 58; BMI 30.7
--- NOTE | 2024-06-06 12:47 | A.OFFVIS_ITS ---
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 Laboratory Required: No Estimator Printing Plate Making: Estimator Printing Plate Making Present Accompanied by: Daughter Allergies No Known Allergies Allergy (Mild, Verified 05/03/24 09:52) NONE Medication List - Last Reconciled 06/06/24 by Nish Devine MD allopurinol 100 mg PO DAILY amlodipine 10 mg PO BID aspirin 81 mg PO DAILY dapagliflozin propanediol (Farxiga) 10 mg PO DAILY doxazosin 1 mg PO DAILY doxylamine succinate (Unisom (doxylamine)) 25 mg PO BEDTIME PRN fenofibrate 54 mg PO DAILY furosemide 40 mg PO BID furosemide 40 mg PO DAILY hydralazine 25 mg PO BID magnesium oxide 400 mg PO DAILY metoprolol succinate ER 50 mg PO DAILY simvastatin 20 mg PO DAILY spironolactone (Aldactone) 25 mg PO DAILY timolol maleate 0.5% 1 drp ophthalmic (eye) DAILY warfarin 1.25 mg See Protocol PO DAILY HPI Comments Details: Sumit comes for follow-up. Most recent echocardiogram only shows mild LVH. He has been doing well from cardiac perspective. Denies any worsening shortness of breath, orthopnea, PND. Taking all his medications. He has not had any hospitalization for heart failure. No bleeding issues or neurologic events. Comes for pacer check and management of AFib. His INRs have been therapeutic as per him. 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 HTN (hypertension) Obstructive sleep apnea Obesity Surgical History History of permanent cardiac pacemaker placement Family History Father Diabetes Cancer Mother Cancer Social History Advance Directives Date on File: 11/13/19 Review of Systems Const Denies chills, Denies fatigue, Denies fever(s), Denies frequent falls, Denies weakness, Denies weight gain and Denies weight loss ENT Denies dizziness Card Denies chest pain, Denies leg edema, Denies lightheadedness, Denies palpitations, Denies dyspnea, Denies dyspnea on exertion, Denies orthopnea and Denies other (loss of consciousness) Resp Denies cough, Denies dyspnea and Denies dyspnea on exertion GI Denies hematochezia and Denies change in stool character Musc Denies abnormal gait, Denies muscle weakness, Denies numbness, Denies radiating pain into limb and Denies tingling Neuro Denies abnormal gait, Denies dizziness, Denies frequent falls, Denies numbness, Denies tingling and Denies weakness Endo Denies fatigue and Denies palpitations Physical Exam Vital Signs: Last Vital Signs Pulse 58 06/06/24 12:47 BP 112/72 06/06/24 12:47 BMI result Body Mass Index 30.7 Const General: cooperative, comfortable, no acute distress, alert and awake Nutritional Appearance: obese Orientation/consciousness: patient oriented x3 Limitations: no limitations Neck Neck: Yes trachea midline, Yes supple and Yes no JVD Resp Effort & Inspection: normal respiratory effort Auscultation: wheezes throughout (Right posterior) and diminished lung sounds Cardio Jugular venous distension: no JVD Rate: regular rate Rhythm: regular rhythm Heart sounds: S1 normal heart sound present and S2 normal heart sound present GI Auscultation: normal bowel sounds Skin General skin exam: no rashes or lesions noted and ecchymosis Neuro General: patient oriented x3 and no focal motor deficits Extrem General: Yes no clubbing, cyanosis or edema Psych Appearance: grossly normal Office Procedures Cardiac Device Check Cardiac Device Check Details: Single-chamber [facility] pacemaker in place programmed in VVI at 60 beats per minute. Ventricular pacing 93% of time. Ventricular sensing was adequate. Carlito tricular pacing thresholds are stable. Pacing lead impedance is stable. Battery life is at 9.7 years [id number] Cardiac Device Check, leadless/single lead pacemaker Procedure code (CPT) selection complete EKG Details: Ventricular paced rhythm with occasional PVCs with underlying atrial fibrillation noted [id number], Complete Assessment & Plan Assessment & Plan (1) (HFpEF) heart failure with preserved ejection fraction: Code(s): I50.30 - Unspecified diastolic (congestive) heart failure Category: Medical Plan: Heart failure preserved ejection fraction, clinically euvolemic and well compensated current diuretic dose and with aggressive blood pressure control. LV ejection fraction is still within normal limits. Continue current diuretic regimen. Daily weight monitoring avoidance salt loading was discussed. Continue Farxiga and spironolactone therapy as well for neurohormonal modulation.. Continue aggressive blood pressure control. Continues CPAP therapy (2) Chronic atrial fibrillation: Code(s): I48.20 - Chronic atrial fibrillation, unspecified Category: Medical Plan: Chronic longstanding atrial fibrillation unlikely to pursue rhythm control approach. Continue rate control approach with metoprolol. Continue full oral anticoagulation, currently on warfarin being followed by [facility]. Maintain target INR between 2 and 3. (3) Cardiac pacemaker in situ: Comment: single-chamber [facility] pacemaker in place for bradycardia Code(s): Z95.0 - Presence of cardiac pacemaker Category: Medical Plan: Cardiac pacemaker in-situ working well. Reprogrammed for adequate function. Will follow remotely. Follow up in the clinic in 6 months time, sooner p.r.n.. Thank you for allowing me to partake in his care Coding Level of Care Code Est Pt Level 4 (91234) Complex EM visit Add On G2211 Diagnoses (HFpEF) heart failure with preserved ejection fraction I50.30 Chronic atrial fibrillation I48.20 Cardiac pacemaker in situ Z95.0 CPT Codes Cardiac Device Check - Cardiac Device 1: [id number] Cardiac Device Check, leadless/single lead pacemaker ([id number]) EKG - CPT: 27638-[id number], Complete ([id number])
== END 2024-06-06 13:11 | disposition home or self-care (01) ==
LOC: HO.HCS 12:41
PROVIDERS: PCP Internal Medicine; Visit Provider Internal Medicine Cardiovascular Disease
DX: I50.30 Unspecified diastolic (congestive) heart failure (principal); I48.20 Chronic atrial fibrillation, unspecified; Z95.0 Presence of cardiac pacemaker
CPT/HCPCS: 93010; 93279; 99214

== ENCOUNTER → 2024-06-06 12:40 | Outpatient (BNVA) | payer OTHER, SELFPAY | PROVIDERS: PCP Internal Medicine; Visit Provider Internal Medicine Cardiovascular Disease | DX: I50.30 Unspecified diastolic (congestive) heart failure (principal); I48.20 Chronic atrial fibrillation, unspecified; Z79.01 Long term (current) use of anticoagulants; Z79.899 Other long term (current) drug therapy; Z45.018 Encounter for adjustment and management of other part of cardiac pacemaker | CPT/HCPCS: 85610; 93005; 99211 ==

== ENCOUNTER 2024-06-06 13:16 | Outpatient (AMB) | payer OTHER, SELFPAY ==
[2024-06-06 13:32] LABS: Prothrombin Time Whole Bld POC 35.9 sec (11.1-13.5)
--- NOTE | 2024-06-06 13:36 | MHC.OFFVISCO ---
Intake Intake Visit Reasons: Anticoagulation Allergies No Known Allergies Allergy (Mild, Verified 06/06/24 13:25) NONE Medication List - Last Reconciled 06/06/24 by Dayna Rice RN allopurinol 100 mg PO DAILY amlodipine 10 mg PO BID aspirin 81 mg PO DAILY dapagliflozin propanediol (Farxiga) 10 mg PO DAILY doxazosin 1 mg PO DAILY doxylamine succinate (Unisom (doxylamine)) 25 mg PO BEDTIME PRN fenofibrate 54 mg PO DAILY furosemide 40 mg PO BID hydralazine 25 mg PO BID magnesium oxide 400 mg PO DAILY metoprolol succinate ER 50 mg PO DAILY simvastatin 20 mg PO DAILY spironolactone (Aldactone) 25 mg PO DAILY timolol maleate 0.5% 1 drp ophthalmic (eye) DAILY warfarin 1.25 mg See Protocol PO DAILY Nursing Note INR: 3.0 in therapeutic range Medications and supplements reviewed No changes in health, diet, medications, or supplements, Denies any signs and symptoms of bleeding or bruising or clotting. 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
--- OUTSIDE RECORDS SUMMARY | 2024-06-06 15:17 | XMS_ITS | Continuity of Care Document ---
Author Organization Formerly [facility]. If a dditional information is needed, contact Health Information Management at [phone] Address [address] [place] [address] Phone Care Team Providers Care Hydroelectric Production Technician Name Role Phone Unavailable Unavailable Unavailable Unavailable [...]
== END 2024-06-06 13:37 | disposition home or self-care (01) ==
LOC: HO.ACS 13:16
PROVIDERS: PCP Internal Medicine; Visit Provider Internal Medicine Medical Oncology
DX: Z79.01 Long term (current) use of anticoagulants (principal)

== ENCOUNTER 2024-06-21 13:51 | Outpatient (AMB) | payer OTHER, SELFPAY ==
[2024-06-21 13:51] VITALS: BP 120/70; PULSE 61; TEMP 36.2; O2SAT 95; BMI 31.0
--- NOTE | 2024-06-21 13:51 | MHC.PC.OV ---
Vital Signs 06/21/24 13:51 Height 5 ft 10 in Weight 216 lb BMI 31.0 BP 120/70 Blood Pressure Location Lt brachial Position Sitting Pulse 61 Pulse Source Pulse Oximeter Temp 97.1 F Temp Source Axillary Pulse Oximetry (%) 95 Oxygen Delivery Method Room Air Intake Visit Reasons: Routine [employer] Treating Unit Operator Required: No Accompanied by: Spouse Allergies No Known Allergies Allergy (Mild, Verified 06/21/24 14:34) NONE Medication List - Last Reconciled 06/21/24 by Larry Russo MD allopurinol 100 mg PO DAILY amlodipine 10 mg PO BID aspirin 81 mg PO DAILY dapagliflozin propanediol (Farxiga) 10 mg PO DAILY doxazosin 1 mg PO DAILY doxylamine succinate (Unisom (doxylamine)) 25 mg PO BEDTIME PRN fenofibrate 54 mg PO DAILY furosemide 40 mg PO BID hydralazine 25 mg PO BID magnesium oxide 400 mg PO DAILY metoprolol succinate ER 50 mg PO DAILY spironolactone (Aldactone) 25 mg PO DAILY timolol maleate 0.5% 1 drp ophthalmic (eye) DAILY warfarin 1.25 mg See Protocol PO DAILY Tobacco use date assessed: 06/21/24 Fall risk assessment: No Falls in past year Last assessed Fall Risk: 06/21/24 Dental Screening Dental Screen Date: 06/21/24 Did you have a dental visit in the last 12 months?: Yes Did you have a dental problem in the last 6 months where you did not have access to dental care?: No PFSH Medical History Iliotibial band syndrome Lumbar radiculopathy Chronic atrial fibrillation 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 1. Little interest or pleasure in doing things: not at all 2. Feeling down, depressed, or hopeless: not at all 3. Trouble falling or staying asleep, or sleeping too much: not at all 4. Feeling tired or having little energy: not at all 5. Poor appetite or overeating: not at all 6. Feeling bad about yourself - or that you are a failure or have let yourself or your family down: not at all 7. Trouble concentrating on things, such as reading the newspaper or watching television: not at all 8. Moving or speaking so slowly that other people could have noticed. Or the opposite - being so fidgety or restless that you have been moving around a lot more than usual: not at all 9. Thoughts that you would be better off or of hurting yourself in some way: not at all Total score: 0 Depression Screening Interpretation: Negative Depression Screening Done: Yes Source: Developed by Drs. Aramis Lowry, Daya Sanchez, Baljinder Khan and colleagues, with an educational shanika from [employer]. Thrive Questionnaire Date Thrive assessed: 06/21/24 I am a: Patient Within the past 12 months, did the food you bought not last and you didn't have the money to get more?: Never true Within the past 12 months, did you worry whether your food would run out before you got money to buy more?: Never true Do you have trouble paying for medicines?: No Do you have trouble getting transportation to medical appointments?: No Do you have trouble paying your heating and electricity bill?: No Do you have trouble taking care of your child, family member or friend?: No Do you have trouble with day-to-day activities such as bathing, preparing meals, shopping, managing finances, etc.?: No Are you currently unemployed and looking for a job?: No Are you interested in more education?: No Currently or been in a relationship where the following occur: No concerns reported THRIVE Score: 0 AUDIT C Alcohol Use Questionnaire (AUDIT-C) 1. How often do you have a drink containing alcohol?: Monthly or less 2. How many drinks containing alcohol do you have on a typical day when you are drinking?: 1 or 2 3. How often do you have six or more drinks on one occasion?: Less than monthly Total Score: 2 OSIRIS-7 AMB Questionnaire OSIRIS-7 Date OSIRIS - 7 assessed: 06/21/24 Feeling nervous, anxious, or on edge: 0 = Not at all Not being able to stop or control worryin = Not at all Worrying too much about different things: 0 = Not at all Trouble relaxin = Not at all Being so restless that it is hard to sit still: 0 = Not at all Becoming easily annoyed or irritable: 0 = Not at all Feeling afraid as if something awful might happen: 0 = Not at all Total OSIRIS-7 score (0-4 normal; 5-9 mild; 10-14 moderate; 15-21 severe): 0 Source: Developed by Drs. Aramis Lowry, Daya Sanchez, Baljinder Khan and colleagues, with an educational shanika from [employer]. Physical exam (Primary Care) Vital Signs: Last Vital Signs Temp 97.1 F 06/21/24 13:51 Pulse 61 06/21/24 13:51 BP 120/70 06/21/24 13:51 Pulse Ox 95 06/21/24 13:51 Oxygen Delivery Method Room Air 06/21/24 13:51 Care Plan Goal for BP management: BP in range. Continue meds at same dosage. BMI result Body Mass Index 31.0 BMI Assessment/Plan discussion: High BMI High, discussed plan: lifestyle, weight reduction and dietary Tobacco/Smoking Status: Tobacco use Status Tobacco use date assessed 06/21/24 06/21/24 13:53 Patient Tobacco Use Status Never used Tobacco 06/21/24 13:53 e-Cigarette/Vaping Use Never Used 06/21/24 13:53 PHQ-9: PHQ-9 Score PHQ-9: Total score 0 06/21/24 14:12 Depression Screening Interpretation: Negative Thrive Assessment: Date of Thrive Assessment Date Thrive assessed 06/21/24 06/21/24 13:53 Currently or been in a relationship where the following occur: No concerns reported Coding Level of Care Code New Pt Level 4 (44237) Complex EM visit Add On G2211 Diagnoses Primary hypertension I10 Hypertension type: primary hypertension Assessment & Plan Assessment & Plan (1) HTN (hypertension): Code(s): I10 - Essential (primary) hypertension Category: Medical Qualifiers: Hypertension type: primary hypertension Qualified Code(s): I10 - Essential (primary) hypertension Plan: BP in range. Continue meds at same dosage Plan History of Present Illness The patient is an 84-year-old male presenting for a wellness visit and ongoing management of chronic heart disease and atrial fibrillation. He is under treatment for atrial fibrillation, managed with a blood thinner under Dr. Marquez's care. The visit confirmed no new symptoms or health concerns. The patient follows Dr. Florez for chronic kidney issues and has been placed on Farxiga, initially thought to be for heart disease but potentially for diabetes. Communication issues were noted with inter-specialist information sharing, complicating understanding of treatment goals. Despite his health issues, the patient reports being free of breathlessness, and his weight has decreased from 225 lbs to 212-215 lbs, indicating possible improvement in overall health status. 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 - Currently enjoys leisure time at a [employer] with pets. - Reports no smoking and negligible alcohol consumption. - Son includes him in family activities for relaxation and recreation. - Able to drive independently and conduct regular activities without limitation. Review of Systems - Cardiovascular: Reports weight management success, no current shortness of breath. - Musculoskeletal: Denies difficulty with routine physical activities. - Ocular: Denies visual disturbances such as halos at night. Physical Exam General: Cooperative and healthy appearing Nutritional Appearance: Well nourished Orientation/consciousness: Patient oriented x3 Limitations: No limitations Head: Normal to inspection General: Appearance normal, both eyes and all related structures Neck: Normal visual inspection Chest: Normal palpation of entire chest wall Respiratory: Good, no shortness of breath reported during activities such as shopping. ormal respiratory effort Neurology: Patient oriented x3, no issues with vision such as halos reported while driving at night. Results Plan 1. Atrial Fibrillation - Continue blood thinner therapy. 2. Chronic Kidney Disease - Follow with Dr. Florez for kidney management. 3. Heart Disease - Lifestyle focus; monitor weight, consult as needed. 4. Possible Diabetes Mellitus - Observe glucose levels, continue management reflecting Farxiga usage. 5. Weight Management - Daily/bi-daily weight check; maintain current diet/exercise plan. Discussion Notes During the visit, I discussed the continuation of care for atrial fibrillation, emphasizing the importance of adherence to blood thinner medication to manage the risk of thromboembolic events. We reviewed the patient?s chronic kidney disease management with Dr. Florez, verifying that current care is appropriate. I stressed the importance of communication between Dr. Marquez and Dr. Florez, particularly concerning shared patient care, and advised on continued weight monitoring due to its significance in heart disease management. No new medications or procedures were introduced at this visit. I planned for routine follow-up in six months while maintaining open lines for immediate concerns. Patient Instructions - Continue taking blood thinner medication for atrial fibrillation as directed. - Follow up with Dr. Florez regarding kidney health. - Monitor your weight daily or every other day. - Keep up with your current diet and exercise for heart health. - Return to the clinic in six months or sooner if new symptoms arise. - Ensure communication between specialists if you visit different doctors.
--- OUTSIDE RECORDS SUMMARY | 2024-06-21 13:54 | XMS_ITS | Continuity of Care Document ---
Author Organization [facility]. If a dditional information is needed, contact Health Information Management at [phone] Address [address] [place] [address] Phone Care Team Providers Care Customer Service Representative Name Role Phone Unavailable Unavailable Unavailable Unavailable [...]
== END 2024-06-21 14:35 | disposition home or self-care (01) ==
LOC: HO.HMCHD 13:52
PROVIDERS: PCP Internal Medicine; Visit Provider Internal Medicine
DX: I10 Essential (primary) hypertension (principal)

== ENCOUNTER → 2024-06-21 13:51 | Outpatient (BNVA) | payer OTHER, SELFPAY | PROVIDERS: PCP Internal Medicine; Visit Provider Internal Medicine | DX: Z13.89 Encounter for screening for other disorder (principal) ==

== ENCOUNTER 2024-07-11 10:03 | Outpatient (AMB) | payer OTHER, SELFPAY ==
[2024-07-11 10:09] LABS: Prothrombin Time Whole Bld POC 32.2 sec (11.1-13.5); ~PT, ~INR - Anti Coag Clinic 2.7 (0.9-1.1)
--- NOTE | 2024-07-11 10:12 | MHC.OFFVISCO ---
Intake Intake Visit Reasons: Anticoagulation Allergies No Known Allergies Allergy (Mild, Verified 07/11/24 10:04) NONE Medication List - Last Reconciled 07/11/24 by Sandra Taylor, GOLDEN allopurinol 100 mg PO DAILY amlodipine 10 mg PO BID aspirin 81 mg PO DAILY dapagliflozin propanediol (Farxiga) 10 mg PO DAILY doxazosin 1 mg PO DAILY doxylamine succinate (Unisom (doxylamine)) 25 mg PO BEDTIME PRN fenofibrate 54 mg PO DAILY furosemide 40 mg PO BID hydralazine 25 mg PO BID 90 days magnesium oxide 400 mg PO DAILY metoprolol succinate ER 50 mg PO DAILY spironolactone (Aldactone) 25 mg PO DAILY timolol maleate 0.5% 1 drp ophthalmic (eye) DAILY warfarin 1.25 mg See Protocol PO DAILY Nursing Note INR: 2.7 in therapeutic range of 2-3 Medications and supplements reviewed No changes in health, diet, medications, or supplements, Denies any signs and symptoms of bleeding or bruising or clotting. Bleeding, bruising, clotting discussed Nutritional guidance given Dose: 1.25mg daily F/U INR: 5 weeks Patient verbalizes understanding of instructions given Anti-Coag Initial Assessment Social Hx Patient Tobacco Use Status: Never used Tobacco Coding Level of Care Code Est Patient Level 1 Diagnoses Current use of anticoagulant therapy Z79.01 Assessment & Plan Assessment & Plan (1) Current use of anticoagulant therapy: Code(s): Z79.01 - skilled nursing (current) use of anticoagulants Category: Medical
== END 2024-07-11 10:13 | disposition home or self-care (01) ==
LOC: HO.ACS 10:03
PROVIDERS: PCP Internal Medicine; Visit Provider Internal Medicine Medical Oncology
DX: Z79.01 Long term (current) use of anticoagulants (principal)

== ENCOUNTER → 2024-07-11 10:03 | Outpatient (BNVA) | payer OTHER, SELFPAY | PROVIDERS: PCP Internal Medicine; Visit Provider Internal Medicine Medical Oncology | DX: I48.20 Chronic atrial fibrillation, unspecified (principal); Z79.01 Long term (current) use of anticoagulants; Z51.81 Encounter for therapeutic drug level monitoring | CPT/HCPCS: 85610; 99211 ==

== ENCOUNTER 2024-08-16 09:38 | Outpatient (AMB) | payer OTHER, SELFPAY ==
--- NOTE | 2024-08-16 09:43 | MHC.OFFVISCO ---
Intake Intake Visit Reasons: Anticoagulation Allergies No Known Allergies Allergy (Mild, Verified 08/16/24 09:39) NONE Medication List - Last Reconciled 08/16/24 by Larisa Freeman RN allopurinol 100 mg PO DAILY amlodipine 10 mg PO BID aspirin 81 mg PO DAILY dapagliflozin propanediol (Farxiga) 10 mg PO DAILY doxazosin 1 mg PO DAILY doxylamine succinate (Unisom (doxylamine)) 25 mg PO BEDTIME PRN fenofibrate 54 mg PO DAILY furosemide 40 mg PO BID hydralazine 25 mg PO BID 90 days magnesium oxide 400 mg PO DAILY metoprolol succinate ER 50 mg PO DAILY spironolactone (Aldactone) 25 mg PO DAILY timolol maleate 0.5% 1 drp ophthalmic (eye) DAILY warfarin 1.25 mg See Protocol PO DAILY Nursing Note INR: 2.0- in therapeutic range of 2-3 Medications and supplements reviewed- no changes No changes in health, diet, medications, or supplements, Denies any signs and symptoms of bleeding or bruising or clotting. Bleeding, bruising, clotting discussed Nutritional guidance given Dose: 2.5mg x 7 F/U INR: pt ref earlier appt than 5 weeks Patient verbalizes understanding of instructions given Anti-Coag Initial Assessment Social Hx Patient Tobacco Use Status: Never used Tobacco Coding Level of Care Code Est Patient Level 1 Diagnoses Current use of anticoagulant therapy Z79.01 Assessment & Plan Assessment & Plan (1) Current use of anticoagulant therapy: Code(s): Z79.01 - retirement (current) use of anticoagulants Category: Medical
[2024-08-16 09:44] LABS: Prothrombin Time Whole Bld POC 23.7 sec (11.1-13.5); ~PT, ~INR - Anti Coag Clinic 2.0 (0.9-1.1)
--- OUTSIDE RECORDS SUMMARY | 2024-08-16 10:08 | XMS_ITS | Patient Health Record ---
Author Organization [facility] Address [address] [place] [id number] Care Team Providers Care Cable Dispatcher Name Role Phone Chidi Beltran Jr Reason For Referral No Information Plan Of Treatment No Information
== END 2024-08-16 09:52 | disposition home or self-care (01) ==
LOC: HO.ACS 09:38
PROVIDERS: PCP Internal Medicine; Visit Provider Internal Medicine Medical Oncology
DX: Z79.01 Long term (current) use of anticoagulants (principal)

== ENCOUNTER → 2024-08-16 09:38 | Outpatient (BNVA) | payer OTHER, SELFPAY | PROVIDERS: PCP Internal Medicine; Visit Provider Internal Medicine Medical Oncology | DX: Z79.01 Long term (current) use of anticoagulants (principal) | CPT/HCPCS: 85610; 99211 ==

== ENCOUNTER 2024-09-20 09:17 | Outpatient (AMB) | payer OTHER, SELFPAY ==
[2024-09-20 09:23] LABS: Prothrombin Time Whole Bld POC 46.3 sec (11.1-13.5); ~PT, ~INR - Anti Coag Clinic 3.9 (0.9-1.1)
--- NOTE | 2024-09-20 09:31 | MHC.OFFVISCO ---
Intake Intake Visit Reasons: Anticoagulation Allergies No Known Allergies Allergy (Mild, Verified 09/20/24 09:17) NONE Medication List - Last Reconciled 09/20/24 by Eileen Mcdonald RN allopurinol 100 mg PO DAILY amlodipine 10 mg PO BID aspirin 81 mg PO DAILY dapagliflozin propanediol (Farxiga) 10 mg PO DAILY doxazosin 1 mg (1/2 x 2 mg) PO DAILY doxylamine succinate (Unisom (doxylamine)) 25 mg PO BEDTIME PRN fenofibrate 54 mg PO DAILY furosemide 40 mg PO BID hydralazine 25 mg PO BID 90 days magnesium oxide 400 mg PO DAILY metoprolol succinate ER 50 mg PO DAILY spironolactone (Aldactone) 25 mg PO DAILY timolol maleate 0.5% 1 drp ophthalmic (eye) DAILY warfarin 1.25 mg See Protocol PO DAILY Nursing Note PT.STATES THAT HE HAS HAD MANY TUNUNAK TOMATOES. NO CP,SOB, MED CHANGES, FALLS OR SX OF BLEEDING. HOLD WARFARIN TODAY THEN RESUME USUAL DOSE AND FOLLOW-UP IN 5 WEEKS GOOD UNDERSTANDING OF DOSING INSTR. Anti-Coag Initial Assessment Social Hx Patient Tobacco Use Status: Never used Tobacco Coding Level of Care Code Est Patient Level 1 Diagnoses Current use of anticoagulant therapy Z79.01 Assessment & Plan Assessment & Plan (1) Current use of anticoagulant therapy: Code(s): Z79.01 - prison (current) use of anticoagulants Category: Medical
--- OUTSIDE RECORDS SUMMARY | 2024-09-20 09:39 | XMS_ITS | Clinical Summary ---
Author Organization [facility] Address [address] [place] [address] Care Team Providers Care Education Administrator Name Role Phone Unavailable Primary Care Provider Unavailabl e Allergies No known active allergies Medications amLODIPine (NORVASC) 10 mg tablet Take 10 mg by mouth daily. Active metoprolol (LOPRESSOR) 50 mg tablet Take 50 mg by mouth 2 times daily. Active warfarin (COUMADIN) 2.5 mg tablet Take 2.5 mg by mouth daily. Active simvastatin (ZOCOR) 20 mg tablet Take 20 mg by mouth at bedtime. Active doxazosin (CARDURA) 2 mg tablet Take 2 mg by mouth daily. Active hydrochlorothiaz radha (HYDRODIURIL) 25 mg tablet Take 25 mg by mouth daily. Active lisinopril (PRINIVIL, ZESTRIL) 40 mg tablet Take 40 mg by mouth daily. Active minoxidil (LONITEN) 10 mg tablet Take 10 mg by mouth daily. Active dutasteride (AVODART) 0.5 mg capsule Take 0.5 mg by mouth daily. Active clindamycin (CLEOCIN) 300 mg capsule Take 1 Cap by mouth 4 times daily. 40 Cap 0 09/26/2012 Active Surgical History Surgery Date Site/Laterality Comments SKIN CANCER EXCISION Medical History Medical History Date Comments Hypertension Social History Tobacco Use Types Packs/Day Years Used Date Smoking Tobacco: Never Alcohol Use Standard Drinks/Week Comments Yes 0 (1 standard drink = 0.6 oz pur e alcohol) occas Sex and Gender Information Value Date Recorded Sex Assigned at Not on file Legal Sex Male 18:42 EST Gender Identity Not on file Sexual Orientation Not on file Obstetrics History Last Filed Vital Signs Vital Sign Reading Time Taken Comments Blood Pressure - - Pulse 52 09/26/2012 1151 EDT Temperature 36.2 C (97.2 F) 09/26/2012 1151 EDT Respiratory Rate 18 09/26/2012 1151 EDT Oxygen Saturation 96% 09/26/2012 1151 EDT Inhaled Oxygen Concentration - - Weight 97.5 kg (215 lb) 09/26/2012 1151 EDT Height - - Body Mass Index - - Plan of Treatment Health Maintenance Due Date Last Done Comments Fall Risk Screening 2005 RSV Immunization ( o r 60+ Years) (1 - 1-dose 75+ series) 05/25/2015 COVID-19 Vaccine (2023- season) 2023
== END 2024-09-20 09:33 | disposition home or self-care (01) ==
LOC: HO.ACS 09:17
PROVIDERS: PCP Internal Medicine; Visit Provider Internal Medicine Medical Oncology
DX: Z79.01 Long term (current) use of anticoagulants (principal)

== ENCOUNTER → 2024-09-20 09:17 | Outpatient (BNVA) | payer OTHER, SELFPAY | PROVIDERS: PCP Internal Medicine; Visit Provider Internal Medicine Medical Oncology | DX: Z79.01 Long term (current) use of anticoagulants (principal) | CPT/HCPCS: 85610; 99211 ==

== ENCOUNTER 2024-10-10 09:07 | Outpatient (REF) | payer OTHER, SELFPAY ==
--- OUTSIDE RECORDS SUMMARY | 2024-10-10 10:00 | XMS_ITS | Patient Health Record ---
Author Organization [facility] Address [address] [place] [phone] Care Team Providers Care Reed Maker Name Role Phone Chidi Beltran Jr Reason For Referral No Information Plan Of Treatment No Information
--- OUTSIDE RECORDS SUMMARY | 2024-10-10 10:00 | XMS_ITS | Clinical Summary ---
Author Organization [facility] Address [address] [place] [address] Care Team Providers Care Gallery Or Museum Curator Name Role Phone Unavailable Primary Care Provider [...]
--- OUTSIDE RECORDS SUMMARY | 2024-10-10 10:00 | XMS_ITS | Clinical Summary ---
Author Organization [facility] Address [address] [address] Phone Care Team Providers Care Milking Machine Operator Name Role Phone Magno Reddy MD Primary Care Provider Immunizations Immunization Administration Dates Next Due COVID-19 (Pre-11/30) Pfizer Vaccine, mRNA, PF ,03/20/2020 Social History Tobacco Use Types Packs/Day Years Used Date Smoking Tobacco: Never Assessed Education Answer Date Recorded Are you interested in more education? Not on juliann e 06/05/2022 Are you concerned about learning? Not on file 06/05/2022 No 06/05/2022 No 06/05/2022 Digital Access Answer Date Recorded No 07/04/2022 No 07/04/2022 No 07/04/2022 Reliable internet access at home? Not on file 07/04/2022 Device with a working camera? Not on file Sex and Gender Information Value Date Recorded Sex Assigned at Not on file Legal Sex Male 4:23 PM EST Gender Identity Not on file Sexual Orientation Not on file Plan of Treatment Health Maintenance Due Date Last Done Comments Adult Td,Tdap Booster 1940 DEPRESSION SCREENING 1952 PNEUMOCOCCAL VACCINES (50+ years) (1 of 1 - PCV) 1990 ZOSTER VACCINES (1 of 2) 1990 RSV VACCINE (1 - 1-dose 75+ series) 05/25/2015 COVID-19 VACCINE ( - 2023-2 5 season) 2023 04/10/2020, 03/20/2020 HEPATITIS A VACCINES Aged Out No long er eligible based on patient's age to complete this topic HIB VACCINES Aged Out No longer eligi ble based on patient's age to complete this topic MENINGOCOCCAL VACCINES (ACWY) Aged Out No longer eligible based on patient's age to complete this topic MENINGOCOCCAL VACCINES (B) Aged Out N o longer eligible based on patient's age to complete this topic Medical Devices Not on file Insurance [address] [place], [place] [id number] [place], [place] [id number] [facility] [address] [place], [place] [id number] Care Teams Milking Machine Operator Relationship Specialty Start Date End Date Mgano Reddy MD [address] [place] [address] [place] [address] PCP - General Internal Medicine 03/18/20 Additional Source Comments The information contained in this document represents components of the legal health record. It is not the complete legal health record.[facility]
[2024-10-10 10:50] LABS: Anion Gap 13 (12-20); Blood Urea Nitrogen 24 mg/dL (9-16); Calcium 10.8 mg/dL (8.4-10.2); Carbon Dioxide 24 mmol/L (22-29); Chloride 108 mmol/L (96-108); Estimated Glomerular Filt Rate 51; Potassium 4.5 mmol/L (3.3-5.1); Sodium 140 mmol/L (135-145)
[2024-10-10 10:56] LABS: Parathyroid Hormone Intact 180.7 pg/mL (8.7-77.1)
== END 2024-10-10 09:08 | disposition home or self-care (01) ==
LOC: HO.LAB 09:07
PROVIDERS: PCP Internal Medicine; Visit Provider Internal Medicine Nephrology
DX: Z51.81 Encounter for therapeutic drug level monitoring (principal); I12.9 Hypertensive chronic kidney disease with stage 1 through stage 4 chronic kidney disease, or unspecified chronic kidney disease; N18.31 Chronic kidney disease, stage 3a; E83.52 Hypercalcemia
CPT/HCPCS: 36415; 80051; 82310; 82565; 83970; 84520; 85610; 99211

== ENCOUNTER 2024-10-10 09:11 | Outpatient (AMB) | payer OTHER, SELFPAY ==
--- NOTE | 2024-10-10 09:26 | MHC.OFFVISCO ---
Intake Intake Visit Reasons: Anticoagulation Allergies No Known Allergies Allergy (Mild, Verified 10/10/24 09:13) NONE Medication List - Last Reconciled 10/10/24 by Eileen Mcdonald RN allopurinol 100 mg PO DAILY amlodipine 10 mg PO BID aspirin 81 mg PO DAILY dapagliflozin propanediol (Farxiga) 10 mg PO DAILY doxazosin 1 mg (1/2 x 2 mg) PO DAILY doxylamine succinate (Unisom (doxylamine)) 25 mg PO BEDTIME PRN fenofibrate 54 mg PO DAILY furosemide 40 mg PO BID hydralazine 25 mg PO BID 90 days magnesium oxide 400 mg PO DAILY metoprolol succinate ER 50 mg PO DAILY spironolactone (Aldactone) 25 mg PO DAILY timolol maleate 0.5% 1 drp ophthalmic (eye) DAILY warfarin 1.25 mg See Protocol PO DAILY Nursing Note PT.IS HERE TODAY REQUESTING INR PRIOR TO SINGLE EXTRACTION TODAY. PT.STATES THAT HE HAS FINISHED A WEEK OF ANTIBIOTICS DUE TO ABCESSED TOOTH. PT.HELD WARFARIN 2 DAYS. RESUME USUAL WARFARIN DOSING AFTER PROCEDURE OR DIRECTED BY DENTIST. FOLLOW-UP IN 5 WEEKS PREV.SCHEDULED. GOOD UNDERSTANDING VERB. TO CALL [facility] IN MEANTIME IF ANY FURTHER QUESTIONS/CONCERNS ARISE. Anti-Coag Initial Assessment Social Hx Patient Tobacco Use Status: Never used Tobacco Coding Level of Care Code Est Patient Level 1 Diagnoses Current use of anticoagulant therapy Z79.01 Results AMB INR Fingerstick AMB INR Fingerstick 2.3 Last Edit by Eileen Mcdonald RN on 10/10/24 09:22 Assessment & Plan Assessment & Plan (1) Current use of anticoagulant therapy: Code(s): Z79.01 - long term care social worker (current) use of anticoagulants Category: Medical
[2024-10-10 09:28] LABS: Prothrombin Time Whole Bld POC 27.7 sec (11.1-13.5); ~PT, ~INR - Anti Coag Clinic 2.3 (0.9-1.1)
== END 2024-10-10 09:31 | disposition home or self-care (01) ==
LOC: HO.ACS 09:11
PROVIDERS: PCP Internal Medicine; Visit Provider Internal Medicine Medical Oncology
DX: Z79.01 Long term (current) use of anticoagulants (principal)

== ENCOUNTER 2024-10-18 10:09 | Outpatient (AMB) | payer OTHER, SELFPAY ==
--- NOTE | 2024-10-18 10:18 | HO.NEPHOV ---
Vital Signs 10/18/24 10:19 Height 5 ft 10 in Weight 212 lb BMI 30.4 BP 126/70 Blood Pressure Location Rt brachial Position Sitting Pulse 56 Pulse Source Pulse Oximeter Pulse Oximetry (%) 96 Oxygen Delivery Method Room Air Intake Visit Reasons: 3 mo fu w/ labs-LVM Slubber Tender Required: No Accompanied by: Spouse Allergies No Known Allergies Allergy (Mild, Verified 10/18/24 10:19) NONE HPI Comments Details: Sumit was seen for CKD and hypercalcemia . He also has been having hyperuricemia as well as hypercalcemia and high PTH. He has been hypertensive for a long time. He had been taking lisinopril 40 mg twice daily. He has H/O heart failure with preserved ejection fraction. He does have significant LVH . ECHO was suspicious of amyloidosis although he was no protienuria or other features for amyloidosis. He is on Farxiga, lasix as well as spironolactone. He has ISAAC and is on CPAP. He has hyperuricemia. He has no H/O renal calculi. He denies nausea, vomiting, diarrhea, dizziness, edema, PND, orthopnea or orthostatic symptoms. He does not take excess NSAID's. He has no H/O weight loss or malignancy. He is on anticoagulation. He denies epistaxis, hemetemesis, melena, sinusitis or hematuria [facility] Medical History Iliotibial band syndrome Lumbar radiculopathy Chronic atrial fibrillation Cardiac pacemaker in situ Hypertensive heart disease with heart failure HTN (hypertension) Obstructive sleep apnea Obesity Surgical History History of permanent cardiac pacemaker placement Family History Father Diabetes Cancer Mother Cancer Social History Housing: House Patient Tobacco Use Status: Never used Tobacco e-Cigarette/Vaping Use: Never Used Advance Directives Date on File: 11/13/19 service: No Current occupational status: retired Cognitive needs: No Hearing needs: No Vision needs: Yes (rx glasses) Review of Systems Const All systems reviewed & are unremarkable except as noted in HPI and below Physical Exam Vital Signs: Last Vital Signs Pulse 56 10/18/24 10:19 BP 126/70 10/18/24 10:19 Pulse Ox 96 10/18/24 10:19 Oxygen Delivery Method Room Air 10/18/24 10:19 BMI result Body Mass Index 30.4 Const General: comfortable and no acute distress Orientation/consciousness: patient oriented x3 HEENT Head: Yes normocephalic Mouth: Normal oral and palatal mucosa present Eyes EOM: EOMs intact bilaterally Neck Neck: Yes supple Resp Auscultation: clear to auscultation bilaterally Cardio Jugular venous distension: no JVD Rate: regular rate GI Palpation (GI): Soft to palpation Auscultation: normal bowel sounds General: Yes no CVA tenderness Back/Spine/Pelvis Back: no CVA tenderness Skin General skin exam: no rashes or lesions noted Neuro General: patient oriented x3 and moves all extremities Extrem General: Yes no pedal edema Results Reviewed Nephrology Results: Sodium, (135-145) 140 mmol/L 10/10/24 Potassium, (3.3-5.1) 4.5 mmol/L 10/10/24 Chloride, (96-108) 108 mmol/L 10/10/24 Carbon Dioxide, (22-29) 24 mmol/L 10/10/24 BUN, (9-16) 24 mg/dL H 10/10/24 Creatinine, (0.5-1.4) 1.33 mg/dL 10/10/24 Calcium, (8.4-10.2) 10.8 mg/dL H 10/10/24 PTH Intact, (8.7-77.1) 180.7 pg/mL H 10/10/24 Renal US 12/28/23 Assessment & Plan Assessment & Plan (1) HTN (hypertension): Code(s): I10 - Essential (primary) hypertension Category: Medical Qualifiers: Hypertension type: primary hypertension Qualified Code(s): I10 - Essential (primary) hypertension (2) Primary hyperparathyroidism: Code(s): E21.0 - Primary hyperparathyroidism Category: Medical (3) Renal cyst, right: Code(s): N28.1 - Cyst of kidney, acquired Category: Medical (4) CKD stage 3a, GFR 45-59 ml/min: Code(s): N18.31 - Chronic kidney disease, stage 3a Category: Medical (5) Hypercalcemia: Code(s): E83.52 - Hypercalcemia Category: Medical Plan Sumit has CKD due to long standing hypertension and vascular disease along with age related loss of renal function. He has been on lisinopril . He has primary hyperparathyroidism with hypercalcemia . Parathyroid scan showed a parathyroid adenoma on the lateral and posterior to the lower pole of the left thyroid lobe. He may need cinacalcet in the future. He can continue Allopurinol 100 mg daily. He could continue rest of his current medication regimen for now. Answered all questions. F/U given Orders: Orders Parathyroid Hormone Intact 7 Months E21.0 - Primary hyperparathyroidism, E83.52 - Hypercalcemia, I10 - Essential (primary) hypertension, N18.31 - Chronic kidney disease, stage 3a, N28.1 - Cyst of kidney, acquired Electrolytes 7 Months E21.0 - Primary hyperparathyroidism, E83.52 - Hypercalcemia, I10 - Essential (primary) hypertension, N18.31 - Chronic kidney disease, stage 3a, N28.1 - Cyst of kidney, acquired Creatinine 7 Months E21.0 - Primary hyperparathyroidism, E83.52 - Hypercalcemia, I10 - Essential (primary) hypertension, N18.31 - Chronic kidney disease, stage 3a, N28.1 - Cyst of kidney, acquired Calcium 7 Months E21.0 - Primary hyperparathyroidism, E83.52 - Hypercalcemia, I10 - Essential (primary) hypertension, N18.31 - Chronic kidney disease, stage 3a, N28.1 - Cyst of kidney, acquired Protein Creatinine Ratio, Ur 7 Months E21.0 - Primary hyperparathyroidism, E83.52 - Hypercalcemia, I10 - Essential (primary) hypertension, N18.31 - Chronic kidney disease, stage 3a, N28.1 - Cyst of kidney, acquired Uric Acid 7 Months E21.0 - Primary hyperparathyroidism, E83.52 - Hypercalcemia, I10 - Essential (primary) hypertension, N18.31 - Chronic kidney disease, stage 3a, N28.1 - Cyst of kidney, acquired Blood Urea Nitrogen 7 Months E21.0 - Primary hyperparathyroidism, E83.52 - Hypercalcemia, I10 - Essential (primary) hypertension, N18.31 - Chronic kidney disease, stage 3a, N28.1 - Cyst of kidney, acquired Phosphorus 7 Months E21.0 - Primary hyperparathyroidism, E83.52 - Hypercalcemia, I10 - Essential (primary) hypertension, N18.31 - Chronic kidney disease, stage 3a, N28.1 - Cyst of kidney, acquired Coding Level of Care Code Est Pt Level 4 (44508) Diagnoses Primary hypertension I10 Hypertension type: primary hypertension Primary hyperparathyroidism E21.0 Renal cyst, right N28.1 CKD stage 3a, GFR 45-59 ml/min N18.31 Hypercalcemia E83.52
[2024-10-18 10:19] VITALS: BP 126/70; PULSE 56; O2SAT 96; BMI 30.4
--- OUTSIDE RECORDS SUMMARY | 2024-10-18 12:21 | XMS_ITS | Clinical Summary ---
Author Organization [facility] Address [address] [address] Phone Care Team Providers Care Government Documents Librarian Name Role Phone Magno Reddy MD Primary [...] VACCINE (1 - 1-dose 75+ series) 05/25/2015 INFLUENZA VACCINE (#1) 2024 COVID-19 VACCINE (3 - 2024-2 6 season) 2024 04/10/2020, 03/20/2020 HEPATITIS A VACCINES Aged Out [...] topic Medical Devices Not on file Insurance [address] [place], [place] [id number] [facility] [place] [address] [place], [place] [address]O [facility] Care Teams Government Documents Librarian Relationship Specialty Start Date End Date Magno Reddy MD [address] [place] [address] [place] [id number] PCP - General Internal Medicine 03/18/20 Additional Source Comments The information contained in this document represents components of the legal health record. It is not the complete legal health record.[facility]
--- OUTSIDE RECORDS SUMMARY | 2024-10-18 12:21 | XMS_ITS | Clinical Summary ---
Author Organization [facility] Address [address] [place] [address] Care Team Providers Care Computer Meteorologist Name Role Phone Unavailable Primary Care Provider [...] - 1-dose 75+ series) 05/25/2015 COVID-19 Vaccine ( season) 2024
--- OUTSIDE RECORDS SUMMARY | 2024-10-18 12:22 | XMS_ITS | Patient Health Record ---
Author Organization [facility] Address [address] [place] [id number] Care Team Providers Care Planning Specialist Name Role Phone Chidi Beltran Jr [phone] Reason For Referral No Information Plan Of Treatment No Information
== END 2024-10-18 10:35 | disposition home or self-care (01) ==
LOC: HO.HKA 10:10
PROVIDERS: PCP Internal Medicine; Visit Provider Internal Medicine Nephrology
DX: I10 Essential (primary) hypertension (principal); E21.0 Primary hyperparathyroidism; N28.1 Cyst of kidney, acquired; N18.31 Chronic kidney disease, stage 3a
CPT/HCPCS: 99214

== ENCOUNTER 2024-11-15 09:33 | Outpatient (AMB) | payer OTHER, SELFPAY ==
[2024-11-15 09:53] LABS: Prothrombin Time Whole Bld POC 31.2 sec (11.1-13.5); ~PT, ~INR - Anti Coag Clinic 2.6 (0.9-1.1)
--- NOTE | 2024-11-15 10:00 | MHC.OFFVISCO ---
Intake Intake Visit Reasons: Anticoagulation Allergies No Known Allergies Allergy (Mild, Verified 11/15/24 09:48) NONE Medication List - Last Reconciled 11/15/24 by Eileen Mcdonald RN allopurinol 100 mg PO DAILY amlodipine 10 mg PO BID aspirin 81 mg PO DAILY dapagliflozin propanediol (Farxiga) 10 mg PO DAILY doxazosin 1 mg (1/2 x 2 mg) PO DAILY doxylamine succinate (Unisom (doxylamine)) 25 mg PO BEDTIME PRN fenofibrate 54 mg PO DAILY furosemide 40 mg PO BID hydralazine 25 mg PO BID 90 days magnesium oxide 400 mg PO DAILY metoprolol succinate ER 50 mg PO DAILY spironolactone (Aldactone) 25 mg PO DAILY timolol maleate 0.5% 1 drp ophthalmic (eye) DAILY warfarin 1.25 mg See Protocol PO DAILY Nursing Note NO CP,SOB,DIET/MED CHANGES,FALLS OR SX OF BLEEDING. CONTINUE PRESENT DOSE AND FOLLOW-UP IN 5 WEEKS GOOD UNDERSTANDING OF DOSING INSTR. Anti-Coag Initial Assessment Social Hx Patient Tobacco Use Status: Never used Tobacco Coding Level of Care Code Est Patient Level 1 Diagnoses Current use of anticoagulant therapy Z79.01 Assessment & Plan Assessment & Plan (1) Current use of anticoagulant therapy: Code(s): Z79.01 - longterm (current) use of anticoagulants Category: Medical
== END 2024-11-15 10:04 | disposition home or self-care (01) ==
LOC: HO.ACS 09:33
PROVIDERS: PCP Internal Medicine; Visit Provider Internal Medicine Medical Oncology
DX: Z79.01 Long term (current) use of anticoagulants (principal)

== ENCOUNTER → 2024-11-15 09:33 | Outpatient (BNVA) | payer OTHER, SELFPAY | PROVIDERS: PCP Internal Medicine; Visit Provider Internal Medicine Medical Oncology | DX: I48.20 Chronic atrial fibrillation, unspecified (principal); Z79.01 Long term (current) use of anticoagulants; Z51.81 Encounter for therapeutic drug level monitoring | CPT/HCPCS: 85610; 99211 ==

== ENCOUNTER → 2024-11-22 23:59 | Outpatient (BNV) | payer OTHER, SELFPAY ==
--- NOTE | 2024-11-28 17:24 | MHC.OFFVIS ---
Intake Visit Reasons: remote device check- [facility] Allergies No Known Allergies Allergy (Mild, Verified 11/15/24 09:48) NONE PFSH Medical History Iliotibial band syndrome Lumbar radiculopathy Chronic atrial fibrillation Cardiac pacemaker in situ Hypertensive heart disease with heart failure HTN (hypertension) Obstructive sleep apnea Obesity Surgical History History of permanent cardiac pacemaker placement Family History Father Diabetes Cancer Mother Cancer Social History Housing: House Patient Tobacco Use Status: Never used Tobacco e-Cigarette/Vaping Use: Never Used Advance Directives Date on File: 11/13/19 service: No Current occupational status: retired Cognitive needs: No Hearing needs: No Vision needs: Yes (rx glasses) Office Procedures Cardiac Device Check Cardiac Device Check Details: Remote pacemaker report generated 11/22/2024. Pacemaker function is adequate [id number] Cardiac Device Interrogation, pacemaker Procedure code (CPT) selection complete Assessment & Plan Assessment & Plan (1) Cardiac pacemaker in situ: Comment: single-chamber [facility] pacemaker in place for bradycardia Code(s): Z95.0 - Presence of cardiac pacemaker Category: Medical Plan: See above Coding Level of Care Code Procedure Only Diagnoses Cardiac pacemaker in situ Z95.0 CPT Codes Cardiac Device Check - Cardiac Device 12: [id number] Cardiac Device Interrogation, pacemaker ([id number])
== END ==
PROVIDERS: PCP Internal Medicine; Visit Provider Internal Medicine Cardiovascular Disease
DX: R00.1 Bradycardia, unspecified (principal); Z95.0 Presence of cardiac pacemaker
CPT/HCPCS: 93294

== ENCOUNTER 2024-12-05 09:47 | Outpatient (AMB) | payer OTHER, SELFPAY ==
[2024-12-05 09:50] VITALS: BP 118/68; PULSE 60
--- NOTE | 2024-12-05 09:50 | MHC.OFFVIS ---
Vital Signs 12/05/24 09:50 Height 5 ft 10 in Weight 209 lb 7.026 oz BMI 30.0 BP 118/68 Blood Pressure Location Lt brachial Position Sitting Pulse 60 Intake Visit Reasons: 6 mth w/ pacer ck Intake Note: 6 month follow-up with [facility]ke good [place] Swage Operator Required: No Nurse Infection Control: Nurse Infection Control Present Accompanied by: Daughter Allergies No Known Allergies Allergy (Mild, Verified 11/15/24 09:48) NONE Medication List - Last Reconciled 12/05/24 by Nish Devine MD allopurinol 100 mg PO DAILY amlodipine 10 mg PO BID aspirin 81 mg PO DAILY dapagliflozin propanediol (Farxiga) 10 mg PO DAILY doxazosin 1 mg (1/2 x 2 mg) PO DAILY doxylamine succinate (Unisom (doxylamine)) 25 mg PO BEDTIME PRN fenofibrate 54 mg PO DAILY furosemide 40 mg PO BID hydralazine 25 mg PO BID 90 days magnesium oxide 400 mg PO DAILY metoprolol succinate ER 50 mg PO DAILY spironolactone (Aldactone) 25 mg PO DAILY timolol maleate 0.5% 1 drp ophthalmic (eye) DAILY warfarin 1.25 mg See Protocol PO DAILY HPI Comments Details: Logan comes for follow-up. He has been doing very well from cardiac perspective. Denies any cardiac symptoms. Remains active around the house without any worsening symptoms. Does not exercise much. No orthopnea, PND, leg edema. Blood pressure has been generally well controlled. Denies any bleeding issues or neurologic events. No lightheadedness, syncope. [facility] Medical History Iliotibial band syndrome Lumbar radiculopathy Chronic atrial fibrillation Cardiac pacemaker in situ Hypertensive heart disease with heart failure HTN (hypertension) Obstructive sleep apnea Obesity Surgical History History of permanent cardiac pacemaker placement Family History Father Diabetes Cancer Mother Cancer Social History Housing: House Patient Tobacco Use Status: Never used Tobacco e-Cigarette/Vaping Use: Never Used Advance Directives Date on File: 11/13/19 service: No Current occupational status: retired Cognitive needs: No Hearing needs: No Vision needs: Yes (rx glasses) Review of Systems Const Denies chills, Denies fatigue, Denies fever(s), Denies frequent falls, Denies weakness, Denies weight gain and Denies weight loss ENT Denies dizziness Card Denies chest pain, Denies leg edema, Denies lightheadedness, Denies palpitations, Denies dyspnea, Denies dyspnea on exertion, Denies orthopnea and Denies other (loss of consciousness) Resp Denies cough, Denies dyspnea and Denies dyspnea on exertion GI Denies hematochezia and Denies change in stool character Musc Denies abnormal gait, Denies muscle weakness, Denies numbness, Denies radiating pain into limb and Denies tingling Neuro Denies abnormal gait, Denies dizziness, Denies frequent falls, Denies numbness, Denies tingling and Denies weakness Endo Denies fatigue and Denies palpitations Physical Exam Vital Signs: Last Vital Signs Pulse 60 12/05/24 09:50 BP 118/68 12/05/24 09:50 BMI result Body Mass Index 30.0 Const General: cooperative, comfortable, no acute distress, alert and awake Nutritional Appearance: obese Orientation/consciousness: patient oriented x3 Limitations: no limitations Neck Neck: Yes trachea midline, Yes supple and Yes no JVD Resp Effort & Inspection: normal respiratory effort Auscultation: wheezes throughout (Right posterior) and diminished lung sounds Cardio Jugular venous distension: no JVD Rate: regular rate Rhythm: regular rhythm Heart sounds: S1 normal heart sound present and S2 normal heart sound present GI Auscultation: normal bowel sounds Skin General skin exam: no rashes or lesions noted and ecchymosis Neuro General: patient oriented x3 and no focal motor deficits Extrem General: Yes no clubbing, cyanosis or edema Psych Appearance: grossly normal Office Procedures Cardiac Device Check Cardiac Device Check Details: Single-chamber [facility] pacemaker in place. Programmed in VVIR at 60 beats per minute. Ventricular pacing 91% of the time. Ventricular capture thresholds adequate and in auto capture mode. Ventricular sensing is excellent. Pacing lead impedance is stable. Battery life is at 9.2 months [id number] Cardiac Device Check, leadless/single lead pacemaker Procedure code (CPT) selection complete Assessment & Plan Assessment & Plan (1) (HFpEF) heart failure with preserved ejection fraction: Code(s): I50.30 - Unspecified diastolic (congestive) heart failure Category: Medical Plan: Heart failure preserved ejection fraction this elderly gentleman doing well with no evidence of infiltrative disorder especially cardiac amyloidosis. Most likely hypertensive heart disease given his significant wall thickness. Currently doing well on current diuretic regimen along with Farxiga therapy and spironolactone therapy. Clinically euvolemic and well compensated. Continue current diuretic regimen. Daily weight monitoring avoidance salt loading was discussed. Additional diuretics as need be. Continue CPAP therapy. Continue aggressive blood pressure control which is currently well optimized. Encouraged to participate in more physical activity. (2) Chronic atrial fibrillation: Code(s): I48.20 - Chronic atrial fibrillation, unspecified Category: Medical Plan: Chronic atrial fibrillation, rate controlled. Continue rate control strategy. Continue full oral anticoagulation, currently on warfarin therapy. Target INR between 2 and 3 being [facility] by [facility]. (3) Cardiac pacemaker in situ: Comment: single-chamber [facility] pacemaker in place for bradycardia Code(s): Z95.0 - Presence of cardiac pacemaker Category: Medical Plan: Cardiac pacemaker in-situ, working well. Reprogrammed for adequate functioning. Will follow up in 6 months time. Follow up in the clinic in 6 months, sooner PRN. Thank you for allowing me to partake in his care Coding Level of Care Code Est Pt Level 4 (71525) Complex EM visit Add On G2211 Diagnoses (HFpEF) heart failure with preserved ejection fraction I50.30 Chronic atrial fibrillation I48.20 Cardiac pacemaker in situ Z95.0 CPT Codes Cardiac Device Check - Cardiac Device 1: [id number] Cardiac Device Check, leadless/single lead pacemaker ([id number])
--- OUTSIDE RECORDS SUMMARY | 2024-12-05 11:28 | XMS_ITS | Clinical Summary ---
Author Organization [facility] Address [address] [address] Phone Care Team Providers Care Professor Of Kinesiology Name Role Phone Magno Reddy MD Primary [...] topic Medical Devices Not on file Insurance [address] [place], [place] [id number] [facility] [employer] [place] [address] [address] [place], [place] [address]O [facility] Care Teams Professor Of Kinesiology Relationship Specialty Start Date End Date Magno Reddy MD [address] [place] [address] [place] [id number] PCP - General Internal Medicine 03/18/20 Additional Source Comments The information contained in this document represents components of the legal health record. It is not the complete legal health record.[facility]
--- OUTSIDE RECORDS SUMMARY | 2024-12-05 11:28 | XMS_ITS | Clinical Summary ---
Author Organization [facility] Address [address] [place] [address] Care Team Providers Care Shuttler Name Role Phone Unavailable Primary Care Provider [...]
--- OUTSIDE RECORDS SUMMARY | 2024-12-05 11:28 | XMS_ITS | Patient Health Record ---
Author Organization [facility] Address [address] [place] [phone] Care Team Providers Care Engine Repairer Service Name Role Phone Chidi Beltran Jr Reason For Referral No Information Plan Of Treatment No Information
== END 2024-12-05 10:11 | disposition home or self-care (01) ==
LOC: HO.HCS 09:48
PROVIDERS: PCP Internal Medicine; Visit Provider Internal Medicine Cardiovascular Disease
DX: I50.30 Unspecified diastolic (congestive) heart failure (principal); I48.20 Chronic atrial fibrillation, unspecified; Z95.0 Presence of cardiac pacemaker
CPT/HCPCS: 93279; 99214; G2211

== ENCOUNTER 2024-12-13 10:40 | Outpatient (AMB) | payer OTHER, SELFPAY ==
--- NOTE | 2024-12-13 10:24 | MHC.PC.OV ---
Vital Signs 12/13/24 10:56 Height 5 ft 8.5 in Weight 93.44 kg BMI 30.9 BP 116/68 Blood Pressure Location Lt brachial Position Sitting Respiration 20 Pulse 67 Pulse Source Pulse Oximeter Temp 97.6 F Temp Source Temporal Artery Scan Pulse Oximetry (%) 98 Oxygen Delivery Method Room Air Intake Visit Reasons: 6 Month F/U - see comments Principal Network Architect Required: No Accompanied by: Spouse Allergies No Known Allergies Allergy (Mild, Verified 12/13/24 10:24) NONE Tobacco use date assessed: 06/21/24 Dental Screening Dental Screen Date: 06/21/24 HPI HPI Comments History of Present Illness Details 84-year-old female with history of hypertension, ISAAC, chronic atrial fibrillation, lumbar radiculopathy, HFpEF, primary hyperparathyroidism, CKD stage 3, prediabetes presenting to the office today for management. Previously seen by prior PCP 06/2024. Here with , Shalini. Chronic AFib/HFpEF/HTN- on Coumadin for anticoagulation. Last INR 2.6, goal 2.0-3.0. On Toprol 50 mg. Also on Farxiga, baby aspirin, Lasix, simvastatin, fenofibrate, hydralazine, spironolactone. Follows with Dr. Devine. Last echo 04/2024 showing low-normal LV systolic function with EF 50-55% with mild LVH and moderate asymmetric septal hypertrophy with mildly dilated right ventricle with mild to moderately reduced RV systolic function. There is severe left atrial and moderate right atrial enlargement. CKD stage /primary hyperparathyroidism/hypercalcemia- following with Dr. Calderno. Last GFR 51. Last calcium 10.8, last PTH 180.7. Vitamin-D normal. Parathyroid scan showed parathyroid adenoma on the lateral and posterior to the lower pole of the left thyroid lobe. Reporedly on allopurinol per nephro note, but patient is unsure if he is taking this. May need cinacalcet in future per Nephrology. Prediabetes-last A1c 6.3% ISAAC- CPAP Concerns: None Health maintenance: No longer undergoing colonoscopies ROS: General: No fevers, malaise, unintentional weight loss HEENT: No blurred vision, diplopia. No sore throat, nasal congestion, rhinorrhea, sinus pain, ear pain Cardiovascular: No chest pain, palpitations, or leg edema Respiratory: No shortness of breath, wheezing, cough GI: No abdominal pain, nausea, vomiting, diarrhea, constipation, melena, hematochezia : No dysuria, hematuria, increased urinary frequency, decreased urinary output MSK: No myalgia, back pain Neuro: No headaches, weakness, paresthesias Skin: No rashes or lesions EXAM: Constitutional - Awake and Alert, No apparent distress Eyes - PERRL Cardiovascular - S1S2, RRR, No edema Respiratory - Normal lung expansion, Normal respiratory effort, No respiratory distress, CTA bilaterally Extremities - no calf tenderness bilaterally, no swelling Skin - Warm/Dry Neurological - Alert & oriented x3 Psychological - Appropriate affect [facility] Medical History Iliotibial band syndrome Lumbar radiculopathy Chronic atrial fibrillation Cardiac pacemaker in situ Hypertensive heart disease with heart failure HTN (hypertension) Obstructive sleep apnea Obesity Surgical History History of permanent cardiac pacemaker placement Family History Father Diabetes Cancer Mother Cancer Social History Housing: House Patient Tobacco Use Status: Never used Tobacco e-Cigarette/Vaping Use: Never Used Advance Directives Date on File: 11/13/19 service: No Current occupational status: retired Cognitive needs: No Hearing needs: No Vision needs: Yes (rx glasses) Questionnaire Thrive Questionnaire Date Thrive assessed: 06/21/24 OSIRIS-7 AMB Questionnaire OSIRIS-7 Date OSIRIS - 7 assessed: 06/21/24 Source: Developed by Drs. Aramis Lowry, Daya Sanchez, Baljinder Khan and colleagues, with an educational shanika from [employer] Physical exam (Primary Care) Vital Signs: Last Vital Signs Temp 97.6 F 12/13/24 10:56 Pulse 67 12/13/24 10:56 Resp 20 12/13/24 10:56 BP 116/68 12/13/24 10:56 Pulse Ox 98 12/13/24 10:56 Oxygen Delivery Method Room Air 12/13/24 10:56 BMI result Body Mass Index 30.9 Tobacco/Smoking Status: Tobacco use Status Tobacco use date assessed 06/21/24 12/13/24 10:25 Patient Tobacco Use Status Never used Tobacco 12/13/24 10:25 e-Cigarette/Vaping Use Never Used 12/13/24 10:25 Thrive Assessment: Date of Thrive Assessment Date Thrive assessed 06/21/24 12/13/24 10:25 Coding Level of Care Code Est Pt Level 4 (27856) Complex EM visit Add On G2211 Diagnoses Primary hypertension I10 Hypertension type: primary hypertension (HFpEF) heart failure with preserved ejection fraction I50.30 Primary hyperparathyroidism E21.0 CKD stage 3a, GFR 45-59 ml/min N18.31 Chronic atrial fibrillation I48.20 Assessment & Plan Assessment & Plan (1) HTN (hypertension): Code(s): I10 - Essential (primary) hypertension Category: Medical Qualifiers: Hypertension type: primary hypertension Qualified Code(s): I10 - Essential (primary) hypertension Plan: Controlled. Continue spironolactone, Toprol, hydralazine, furosemide. Low-sodium diet, weight loss efforts (2) (HFpEF) heart failure with preserved ejection fraction: Code(s): I50.30 - Unspecified diastolic (congestive) heart failure Category: Medical Plan: Clinically euvolemic. Continue Lasix. Continue Farxiga, hydralazine, Toprol, and spironolactone. Reviewed last echocardiogram and cardiology note. Continue with strict blood pressure management. (3) Primary hyperparathyroidism: Code(s): E21.0 - Primary hyperparathyroidism Category: Medical Plan: Reviewed last nephrology note. Reviewed last PTH, vitamin-D, calcium levels. Per nephrology note, the patient should be taking allopurinol but the patient is not sure he is taking this. We will contact the office regarding allopurinol. (4) CKD stage 3a, GFR 45-59 ml/min: Code(s): N18.31 - Chronic kidney disease, stage 3a Category: Medical Plan: Stable. As above (5) Chronic atrial fibrillation: Code(s): I48.20 - Chronic atrial fibrillation, unspecified Category: Medical Plan: Patient in sinus rhythm in office today. Continue Coumadin for anticoagulation, INR therapeutic. Continue Toprol for rate control. Pacemaker in place.. Continue following with Cardiology Plan Follow-up in the office in 4 months. Labs to be completed today as well as in 4 months several days prior to visit Orders: Orders Basic Metabolic Panel 4 Months I10 - Essential (primary) hypertension Hemoglobin A1c 4 Months I10 - Essential (primary) hypertension, I48.20 - Chronic atrial fibrillation, unspecified, Z79.01 - director long term care (current) use of anticoagulants
[2024-12-13 10:56] VITALS: BP 116/68; PULSE 67; RESP 20; TEMP 36.4; O2SAT 98; BMI 30.9
--- OUTSIDE RECORDS SUMMARY | 2024-12-13 12:25 | XMS_ITS | Clinical Summary ---
Author Organization [facility] Address [address] [place] [address] Care Team Providers Care Nuclear Medical Technologist Name Role Phone Unavailable Primary Care Provider [...]
--- OUTSIDE RECORDS SUMMARY | 2024-12-13 12:25 | XMS_ITS | Clinical Summary ---
Author Organization [facility] Address [address] [address] Phone Care Team Providers Care Ground Products Director Name Role Phone Magno Reddy MD Primary [...] topic Medical Devices Not on file Insurance [address] [place], [place] [id number] [facility] [place] [place], [place] [address] [facility] Care Teams Ground Products Director Relationship Specialty Start Date End Date Magno Reddy MD [address] [place] [address] [place] [id number] PCP - General Internal Medicine 03/18/20 Additional Source Comments The information contained in this document represents components of the legal health record. It is not the complete legal health record.[facility]
--- OUTSIDE RECORDS SUMMARY | 2024-12-13 12:25 | XMS_ITS | Patient Health Record ---
Author Organization [facility] Address [address] [place] [id number] Care Team Providers Care Business Account Specialist Name Role Phone Chidi Beltran Jr [phone] Reason For Referral No Information Plan Of Treatment No Information
== END 2024-12-13 11:23 | disposition home or self-care (01) ==
LOC: HO.HMCHD 10:41
PROVIDERS: PCP Physician Assistant; Visit Provider Physician Assistant
DX: I10 Essential (primary) hypertension (principal); I50.30 Unspecified diastolic (congestive) heart failure; E21.0 Primary hyperparathyroidism; N18.31 Chronic kidney disease, stage 3a; I48.20 Chronic atrial fibrillation, unspecified

== ENCOUNTER 2024-12-20 08:42 | Outpatient (REF) | payer OTHER, SELFPAY ==
--- OUTSIDE RECORDS SUMMARY | 2024-12-20 09:06 | XMS_ITS | Clinical Summary ---
Author Organization [facility] Address [address] [place] [address] Care Team Providers Care Superintendent Distribution Name Role Phone Unavailable Primary Care Provider [...] on file Sexual Orientation Not on file Last Filed Vital Signs Vital Sign Reading [...]
--- OUTSIDE RECORDS SUMMARY | 2024-12-20 09:06 | XMS_ITS | Patient Health Record ---
Author Organization [facility] Address [address] [place] [id number] Care Team Providers Care Sweeper Cleaner Industrial Name Role Phone Chiid Beltran Jr [phone] Reason For Referral No Information Plan Of Treatment No Information
--- OUTSIDE RECORDS SUMMARY | 2024-12-20 09:06 | XMS_ITS | Clinical Summary ---
Author Organization [facility] Address [address] [address] Phone Care Team Providers Care Vocational Trainer Name Role Phone Magno Reddy MD Primary [...] topic Medical Devices Not on file Insurance [address] [place], [place] [id number] [facility] [place] [place], [place] [address]O [facility] Care Teams Vocational Trainer Relationship Specialty Start Date End Date Magno Reddy MD [address] [place] [address] [place] [id number] PCP - General Internal Medicine 03/18/20 Additional Source Comments The information contained in this document represents components of the legal health record. It is not the complete legal health record.[facility]
[2024-12-20 10:18] LABS: Hematocrit 55.3 % (42.0-52.0); Hemoglobin 18.0 g/dl (14.0-18.0); Mean Corpuscular HGB Conc 32.5 g/dl (31.0-36.0); Mean Corpuscular Hemoglobin 33.3 pg (27.0-33.0); Mean Corpuscular Volume 102.2 fL (80.0-98.0); NRBC Abs Auto 0.000 X10*3/uL (0.0-0.012); NRBC Pct Auto 0.0 /100WBC (0.0-0.2); Platelet Count 170 X10*3/uL (160-400); Red Blood Count 5.41 X10*6/uL (4.60-5.80); White Blood Count 7.5 X10*3/uL (4.8-10.8)
[2024-12-20 10:54] LABS: Parathyroid Hormone Intact 195.9 pg/mL (8.7-77.1)
[2024-12-20 11:05] LABS: Alanine Aminotransferase 26 U/L (0-40); Albumin Level 4.6 g/dL (3.5-5.0); Alkaline Phosphatase 74 U/L (39-117); Anion Gap 14 (12-20); Aspartate Amino Transferase 30 U/L (5-37); Blood Urea Nitrogen 19 mg/dL (9-16); Calcium 11.1 mg/dL (8.4-10.2); Carbon Dioxide 20 mmol/L (22-29); Chloride 108 mmol/L (96-108); Cholesterol 143 mg/dL (<200); Estimated Glomerular Filt Rate 58; HDL Cholesterol 30 mg/dL (>40); Potassium 4.3 mmol/L (3.3-5.1); Sodium 138 mmol/L (135-145); Total Protein 7.4 g/dL (6.5-8.0); Triglycerides 253 mg/dL (<150)
[2024-12-20 11:10] LABS: Thyroid Stimulating Hormone 0.80 uIU/mL (0.32-4.0)
[2024-12-20 15:15] LABS: Appearance Urine Clear; Glucose Urine UA >=1000 mg/dL (Negative); PH 5.5 (5.0-9.0); Specific Gravity - Urine 1.020 (1.005-1.025); UMIC TRIGGER UA YES
== END 2024-12-20 08:43 | disposition home or self-care (01) ==
LOC: HO.LAB 08:42
PROVIDERS: Internal Medicine; Internal Medicine Nephrology; PCP Physician Assistant; Visit Provider Physician Assistant
DX: I12.9 Hypertensive chronic kidney disease with stage 1 through stage 4 chronic kidney disease, or unspecified chronic kidney disease (principal); N18.31 Chronic kidney disease, stage 3a; E83.52 Hypercalcemia
CPT/HCPCS: 36415; 80048; 80061; 80076; 81001; 83970; 84443; 85027; 85610; 99211

== ENCOUNTER 2024-12-20 09:54 | Outpatient (AMB) | payer OTHER, SELFPAY ==
--- NOTE | 2024-12-20 10:03 | MHC.OFFVISCO ---
Intake Intake Visit Reasons: Anticoagulation Allergies No Known Allergies Allergy (Mild, Verified 12/20/24 09:58) NONE Medication List - Last Reconciled 12/20/24 by Larisa Freeman RN amlodipine 10 mg PO ONCE aspirin 81 mg PO DAILY dapagliflozin propanediol (Farxiga) 10 mg PO DAILY doxazosin 1 mg (1/2 x 2 mg) PO DAILY doxylamine succinate (Unisom (doxylamine)) 25 mg PO BEDTIME PRN fenofibrate 54 mg PO DAILY furosemide 40 mg PO ONCE hydralazine 25 mg PO BID 90 days magnesium oxide 400 mg PO DAILY metoprolol succinate ER 50 mg PO DAILY simvastatin 20 mg PO DAILY spironolactone (Aldactone) 25 mg PO DAILY timolol maleate 0.5% 1 drp ophthalmic (eye) DAILY warfarin 1.25 mg See Protocol PO DAILY Nursing Note INR: 2.9- in therapeutic range 2-3 Medications and supplements reviewed- no changes No changes in health, diet, medications, or supplements, Denies any signs and symptoms of bleeding or bruising or clotting. Bleeding, bruising, clotting discussed Nutritional guidance given Dose: 1.25mg x 7 F/U INR: pt req 5 weeks Patient verbalizes understanding of instructions given Anti-Coag Initial Assessment Social Hx Patient Tobacco Use Status: Never used Tobacco Coding Level of Care Code Est Patient Level 1 Diagnoses Current use of anticoagulant therapy Z79.01 Results AMB INR Fingerstick AMB INR Fingerstick 2.9 Last Edit by Larisa Freeman RN on 12/20/24 10:06 interface delay Assessment & Plan Assessment & Plan (1) Current use of anticoagulant therapy: Code(s): Z79.01 - terminal clerk (current) use of anticoagulants Category: Medical
[2024-12-20 11:04] LABS: Prothrombin Time Whole Bld POC 34.6 sec (11.1-13.5); ~PT, ~INR - Anti Coag Clinic 2.9 (0.9-1.1)
== END 2024-12-20 10:57 | disposition home or self-care (01) ==
LOC: HO.ACS 09:54
PROVIDERS: PCP Physician Assistant; Visit Provider Internal Medicine Medical Oncology
DX: Z79.01 Long term (current) use of anticoagulants (principal)

== ENCOUNTER 2025-01-24 09:32 | Outpatient (AMB) | payer OTHER, SELFPAY ==
--- NOTE | 2025-01-24 09:50 | MHC.OFFVISCO ---
Intake Intake Visit Reasons: Anticoagulation Allergies No Known Allergies Allergy (Mild, Verified 01/24/25 09:34) NONE Medication List - Last Reconciled 01/24/25 by Eileen Mcdonald RN amlodipine 10 mg PO ONCE aspirin 81 mg PO DAILY dapagliflozin propanediol (Farxiga) 10 mg PO DAILY doxazosin 1 mg (1/2 x 2 mg) PO DAILY doxylamine succinate (Unisom (doxylamine)) 25 mg PO BEDTIME PRN fenofibrate 54 mg PO DAILY furosemide 40 mg PO ONCE hydralazine 25 mg PO BID 90 days magnesium oxide 400 mg PO DAILY metoprolol succinate ER 50 mg PO DAILY simvastatin 20 mg PO DAILY spironolactone (Aldactone) 25 mg PO DAILY timolol maleate 0.5% 1 drp ophthalmic (eye) DAILY warfarin 1.25 mg See Protocol PO DAILY Nursing Note NO CP,SOB,DIET/MED CHANGES,FALLS OR SX OF BLEEDING. HOLD WARFARIN TODAY THEN RESUME USUAL DOSE AND FOLLOW-UP IN WEEKS GOOD UNDERSTANDING OF DOSING INSTR. Anti-Coag Initial Assessment Social Hx Patient Tobacco Use Status: Never used Tobacco Coding Level of Care Code Est Patient Level 1 Diagnoses Current use of anticoagulant therapy Z79.01 Results AMB INR Fingerstick AMB INR Fingerstick 3.4 Last Edit by Eileen Mcdonald RN on 01/24/25 09:43 Assessment & Plan Assessment & Plan (1) Current use of anticoagulant therapy: Code(s): Z79.01 - intermission coordinator (current) use of anticoagulants Category: Medical
--- OUTSIDE RECORDS SUMMARY | 2025-01-24 10:59 | XMS_ITS | Patient Health Record ---
Author Organization [facility] Address [address] [place] [phone] Care Team Providers Care Firebrick And Refractory Tile Repairer Name Role Phone Chidi Beltran Jr Reason For Referral No Information Plan Of Treatment No Information
--- OUTSIDE RECORDS SUMMARY | 2025-01-24 10:59 | XMS_ITS | Clinical Summary ---
Author Organization [facility] Address [address] [address] Phone Care Team Providers Care Creative Designer Name Role Phone Magno Reddy MD Primary [...] topic Medical Devices Not on file [place] [address] [place] [id number] [facility] [address] [place] [address]O [facility] Care Teams Creative Designer Relationship Specialty Start Date End Date Magno Reddy MD [address] [place] [address] [place] [id number] PCP - General Internal Medicine 03/18/20 Additional Source Comments The information contained in this document represents components of the legal health record. It is not the complete legal health record.[facility]
[2025-01-24 13:25] LABS: Prothrombin Time Whole Bld POC 40.3 sec (11.1-13.5); ~PT, ~INR - Anti Coag Clinic 3.4 (0.9-1.1)
== END 2025-01-24 09:53 | disposition home or self-care (01) ==
LOC: HO.ACS 09:32
PROVIDERS: PCP Physician Assistant; Visit Provider Internal Medicine Medical Oncology
DX: Z79.01 Long term (current) use of anticoagulants (principal)

== ENCOUNTER → 2025-01-24 09:32 | Outpatient (BNVA) | payer OTHER, SELFPAY | PROVIDERS: PCP Physician Assistant; Visit Provider Internal Medicine Medical Oncology | DX: I48.20 Chronic atrial fibrillation, unspecified (principal); Z79.01 Long term (current) use of anticoagulants; Z51.81 Encounter for therapeutic drug level monitoring | CPT/HCPCS: 85610; 99211 ==